=== PATIENT | female | born 1945 | race Caucasian/White ===

== ENCOUNTER 2016-06-17 21:57 | Inpatient (IN) | payer OTHER, MEDICARE ==
[~2016-06-17] VITALS: Ht 162.6 cm; Wt 90.3 kg
[2016-06-17 22:03] VITALS: BP 161/68; PULSE 108; RESP 20; O2SAT 88
[2016-06-17] MEDS ORDERED: PIPERACIL-TAZO 4.5 GM PREMIX 100 ML IV STA (22:09)
[2016-06-17] MEDS ORDERED: AZITHROMYCIN INJ 500 MG in SODIUM CHLOR 0.9% 250 ML INJ 250 ML IV STA (22:09)
[2016-06-17] MEDS ORDERED: VANCOMYCIN INJ 1 MG in SODIUM CHLOR 0.9% 250 ML INJ 250 ML IV STA (22:09)
[2016-06-17] MEDS ORDERED: SODIUM CHLOR 0.9% 1000 ML INJ 1,000 ML IV ONE (22:09)
[2016-06-17] MEDS ORDERED: ACETAMINOPHEN 650 MG SUPP RECTAL ONE (22:15)
[2016-06-17 22:54] LABS: AUTOMATED NEUTROPHIL # 18.4 TH/MM3 (1.8-7.7); BASOPHIL % 0.2 % (0.0-2.0); HEMATOCRIT 30.8 % (35.0-46.0); HEMO FLAGS DIFF FINAL; LYMPH % 5.1 % (9.0-44.0); LYMPHOCYTE # 1.1 TH/MM3 (1.0-4.8); MEAN CELL VOLUME 89.8 FL (80.0-100.0); MEAN CORPUSCULAR HEMOGLOBIN 30.1 PG (27.0-34.0); MEAN CORPUSCULAR HGB CONC 33.5 % (32.0-36.0); MONO % 5.1 % (0.0-8.0); NEUT % 89.6 % (16.0-70.0); PLATELET COUNT 208 TH/MM3 (150-450); RED BLOOD COUNT 3.43 MIL/MM3 (4.00-5.30); RED CELL DISTRIBUTION WIDTH 14.7 % (11.6-17.2); WHITE BLOOD COUNT 20.6 TH/MM3 (4.0-11.0)
--- NOTE | 2016-06-17 23:00 | RADRPT ---
EXAM DATE/TIME: 06/17/2016 22:22 [facility] COMPARISON: No previous studies available for comparison. INDICATIONS : Fever. Shortness of breath. MEDICAL HISTORY : None. SURGICAL HISTORY : None. ENCOUNTER: Initial ACUITY: 1 day PAIN SCORE: Non-responsive. LOCATION: Bilateral chest FINDINGS: Single portable frontal view the chest shows a right lower lobe infiltrate. Left lung is largely melania r. No effusions. Heart is normal in size. Bony structures are unremarkable. CONCLUSION: Right lower lobe infiltrate. Paras Saleem Jr., MD on June 17, 2016 at 22:57 Board Certified Radiologist. This report was verified electronically.
[2016-06-17 23:07] LABS: BLOOD, URINE LARGE (NEG); GLUCOSE,URINE NEG (NEG); KETONE, URINE NEG (NEG); MUCUS URINE FEW /lpf (OCC); NITRITE,URINE NEG (NEG); SQUAMOUS EPITHELIAL CELL URINE 3 /hpf (0-5); TRANSITIONAL EPI CELLS, URINE 3 /hpf; URINE COLOR YELLOW (YELLW/STRAW)
[2016-06-17 23:08] LABS: COMMENT (UR) CATH-CULTURE IND; CULTURE IF INDICATED CATH CULTURE IND
[2016-06-17 23:09] LABS: ALT (GPT) 94 U/L (10-53); ANION GAP 9 MEQ/L (5-15); AST (GOT) 51 U/L (15-37); BICARBONATE 27.4 MEQ/L (21.0-32.0); BLOOD UREA NITROGEN 46 MG/DL (7-18); CHLORIDE 103 MEQ/L (98-107); GLOMERULAR FILTRATION RATE 50 ML/MIN (>89); MAGNESIUM 2.1 MG/DL (1.5-2.5); POTASSIUM 4.4 MEQ/L (3.5-5.1); SODIUM (NA) 139 MEQ/L (136-145)
[2016-06-17 23:12] LABS: ALKALINE PHOSPHATASE 86 U/L (45-117); CREATINE KINASE 165 U/L (26-192); TOTAL BILIRUBIN ADULT 0.5 MG/DL (0.2-1.0)
[2016-06-17 23:20] VITALS: BP 141/95; PULSE 104; RESP 22; TEMP 101.1; O2SAT 96
[2016-06-17 23:22] LABS: APTT (PATIENT) 27.8 SEC (24.3-30.1); INTERNATIONAL NORMALIZED RATIO 1.2 RATIO
[2016-06-17 23:24] LABS: CKMB LESS THAN 0.5 NG/ML (0.5-3.6)
[2016-06-17] MEDS ORDERED: fentaNYL DRIP 250 ML IV SCH (23:30)
[2016-06-17] MEDS ORDERED: MIDAZOLAM 100 MG/ML INJ 100 ML IV SCH (23:30)
[2016-06-17] MEDS ORDERED: ETOMIDATE 20 MG/10 ML VIAL IV PUSH ONE (23:30)
[2016-06-17] MEDS ORDERED: SUCCINYLCHOLINE CHLORIDE 200 MG/10 ML VIAL IV PUSH ONE (23:30)
--- NOTE | 2016-06-17 23:31 | PD ---
HPI Chief Complaint: Respiratory Distress Time Seen by Provider: 22:09 Travel History International Travel<30 days: No Contact w/Intl Traveler<30days: No Traveled to known affect area: No History of Present Illness HPI Patient is a 70-year-old female brought in from her group home by EMS for respiratory distress. EMS states that patient "aspirated over the weekend." Patient was noticed to be to keep neck by nursing staff yesterday and they called EMS today because she seemed to be getting worse. Patient is altered, is nonverbal, is unable to provide history. Family states patient had a change in her mental status about a month ago and there were never able to figure out why. They state that she does not carry on conversations, but usually is attentive. PFSH Past Medical History Hx Anticoagulant Therapy: No Alzheimer's Disease: Yes Atrial Fibrillation: No Cardiovascular Problems: No COPD: No Dementia: Yes Gastrointestinal Disorders: No Past Surgical History Surgical History: Unable to Obtain Social History Tobacco Use: No Allergies-Medications (Allergen,Severity, Reaction): Coded Allergies: Olanzapine (Verified Allergy, Unknown, UNKNOWN, 06/17/16) Reported Meds & Prescriptions Reported Meds & Active Scripts Active Review of Systems ROS Limitations: Altered Mental Status Physical Exam Narrative GENERAL: Patient's eyes closed, responds to painful stimuli. SKIN: Diaphoretic. HEAD: Atraumatic. Normocephalic. EYES: Will not open her eyes, squeezes them shut when trying to manually open them. ENT: Mucous membranes pink and moist. NECK: Trachea midline. No JVD. CARDIOVASCULAR: Tachycardia. No murmur appreciated. RESPIRATORY: Respiratory distress with accessory muscle use. Right-sided crackles. GASTROINTESTINAL: Abdomen soft, non-tender, nondistended. MUSCULOSKELETAL: No obvious deformities. No clubbing. No cyanosis. No edema. NEUROLOGICAL: Responds to painful stimuli. Arms are contracted. Data Data Last Documented VS Vital Signs Date Time Temp Pulse Resp B/P Pulse Ox O2 Delivery O2 Flow Rate FiO2 06/17/16 23:40 100 100 06/17/16 23:20 101.1 104 22 141/95 Non-Rebreather 15 Orders Complete Blood Count With Diff (06/17/16 22:09) Comprehensive Metabolic Panel (06/17/16 22:09) Prothrombin Time / Inr (Pt) (06/17/16 22:09) Act Partial Throm Time (Ptt) (06/17/16 22:09) Lactic Acid Sepsis Protocol (06/17/16 22:09) Magnesium (Mg) (06/17/16 22:09) Phosphorus (Po4) (06/17/16 22:09) Lipase (06/17/16 22:09) Ckmb (Isoenzyme) Profile (06/17/16 22:09) Troponin I (06/17/16 22:) Urinalysis - C+S If Indicated (06/17/16 22:) Ua Includes Microscopic (06/17/16 22:09) Blood Culture (06/17/16 22:09) Chest, Single Ap (06/17/16 22:09) Blood Glucose (06/17/16 22:09) Ecg Monitoring (06/17/16:) Iv Access Insert/Monitor (06/17/16 22:) Oximetry (06/17/16 22:09) Oxygen Administration (06/17/16 22:) Urinary Catheter Insert/Apply (06/17/16 22:) Acetaminophen Supp (Tylenol Supp) (06/17/16 22:15) Ct Brain W/O Iv Contrast(Rout) (06/17/16 22:09) Sodium Chlor 0.9% 1000 Ml Inj (Ns 1000 M (06/17/16 22:09) Vancomycin Inj (Vancomycin Inj) (06/17/16 22:09) Piperacil-Tazo 4.5 Gm Premix (Zosyn 4.5 (06/17/16 22:09) Azithromycin Inj (Zithromax Inj) (06/17/16 22:09) Urine Culture (06/17/16 22:20) CKMB (06/17/16 22:20) CKMB% (06/17/16 22:20) Midazolam Inj (Versed Inj) (06/17/16 23:30) Neurological Rass Scale Q30MX2,Q2HX4,Q4H (06/17/16 23:27) Neurological Rass Scale Q30MX2,Q2HX4,Q4H (06/17/16 23:27) Fentanyl Drip (Fentanyl Drip) (06/17/16 23:30) Chest, Single Ap (06/17/16 ) Prerna-Gastric Tube Insert/Mon (06/17/16 23:27) Etomidate Inj (Amidate Inj) (06/17/16 23:30) Succinylcholine Inj (Quelicin Inj) (06/17/16 23:30) Admit Order (Ed Use Only) (06/17/16 ) Labs Laboratory Tests Test 06/17/16 22:20 White Blood Count 20.6 TH/MM3 Red Blood Count 3.43 MIL/MM3 Hemoglobin 10.3 GM/DL Hematocrit 30.8 % Mean Corpuscular Volume 89.8 FL Mean Corpuscular Hemoglobin 30.1 PG Mean Corpuscular Hemoglobin 33.5 % Concent Red Cell Distribution Width 14.7 % Platelet Count 208 TH/MM3 Mean Platelet Volume 10.1 FL Neutrophils (%) (Auto) 89.6 % Lymphocytes (%) (Auto) 5.1 % Monocytes (%) (Auto) 5.1 % Eosinophils (%) (Auto) 0.0 % Basophils (%) (Auto) 0.2 % Neutrophils # (Auto) 18.4 TH/MM3 Lymphocytes # (Auto) 1.1 TH/MM3 Monocytes # (Auto) 1.0 TH/MM3 Eosinophils # (Auto) 0.0 TH/MM3 Basophils # (Auto) 0.0 TH/MM3 CBC Comment DIFF FINAL Differential Comment Prothrombin Time 13.0 SEC Prothromb Time International 1.2 RATIO Ratio Activated Partial 27.8 SEC Thromboplast Time Urine Color YELLOW Urine Turbidity HAZY Urine pH 5.0 Urine Specific [place] 1.018 Urine Protein TRACE mg/dL Urine Glucose (UA) NEG mg/dL Urine Ketones NEG mg/dL Urine Occult Blood LARGE Urine Nitrite NEG Urine Bilirubin NEG Urine Urobilinogen LESS THAN 2.0 MG/DL Urine Leukocyte Esterase LARGE Urine RBC 20 /hpf Urine WBC 57 /hpf Urine WBC Clumps FEW Urine Squamous Epithelial 3 /hpf Cells Urine Transitional Epithelial 3 /hpf Cells Urine Amorphous Sediment RARE Urine Mucus FEW /lpf Urine Yeast (Budding) MOD Microscopic Urinalysis Comment CATH-CULTURE IND Sodium Level 139 MEQ/L Potassium Level 4.4 MEQ/L Chloride Level 103 MEQ/L Carbon Dioxide Level 27.4 MEQ/L Anion Gap 9 MEQ/L Blood Urea Nitrogen 46 MG/DL Creatinine 1.09 MG/DL Estimat Glomerular Filtration 50 ML/MIN Rate Random Glucose 142 MG/DL Lactic Acid Level 1.8 mmol/L Calcium Level 9.1 MG/DL Phosphorus Level 3.3 MG/DL Magnesium Level 2.1 MG/DL Total Bilirubin 0.5 MG/DL Aspartate Amino Transf 51 U/L (AST/SGOT) Alanine Aminotransferase 94 U/L (ALT/SGPT) Alkaline Phosphatase 86 U/L Total Creatine Kinase 165 U/L Creatine Kinase MB LESS THAN 0.5 NG/ML Troponin I LESS THAN 0.02 NG/ML Total Protein 6.9 GM/DL Albumin 2.7 GM/DL Lipase 70 U/L MDM Medical Decision Making Medical Screen Exam Complete: Yes Emergency Medical Condition: Yes Interpretation(s) ECG shows sinus tachycardia, no ST elevation or depression Differential Diagnosis Sepsis versus pneumonia versus ACS versus CVA Narrative Course Patient is a 70-year-old female brought in by EMS for respiratory distress. Patient is altered cannot provide any history. IV established, labs sent. Decision made to intubate due to inability to protect her airway and continued respiratory distress. Patient intubated without issue. Given IV fluids, started on broad-spectrum antibiotics. Chest x-ray shows large right-sided infiltrate. Patient admitted to ICU for further management. CT head performed shows no acute abnormalities. Critical Care Narrative Aggregate critical care time was 35 minutes. Time to perform other separately billable procedures was not included in the critical care time. My time did not include minutes spent treating any other patients simultaneously or on activities that did not directly contribute to the patient's treatment. The services I provided to this patient were to treat and/or prevent clinically significant deterioration that could result in: Serious illness or I provided critical care services requiring my management, as noted below: Chart data review, documentation time, medication orders and management, vital sign assessments/reviewing monitor data, ordering and reviewing lab tests, ordering and interpreting/reviewing x-rays and diagnostic studies, care of the patient and discussion of the patient with the admitting physicians. Procedures Procedure Narrative After the risks and benefits were discussed the following procedure was performed: INTUBATION: The patient was put in optimal position for the procedure. Rapid sequence intubation was initiated by me using 20 milligrams of etomidate IV and [100 milligrams of succinylcholine IV. The patient was intubated with a 7.5 cuffed endotracheal tube. Tube placement was confirmed by visualization of the tube and balloon passing through the cords, capnometry and subsequent chest x-ray. Breath sounds were equal and well aerated bilaterally postintubation. No breath sounds over stomach. Patient tolerated procedure well. Diagnosis Primary Impression: Sepsis Qualified Code: A41.9 - Sepsis, due to unspecified organism Additional Impressions: Pneumonia Qualified Code: J18.1 - Pneumonia of right lower lobe due to infectious organism Respiratory failure Qualified Code: J96.00 - Acute respiratory failure, unspecified whether with hypoxia or hypercapnia Admitting Information Admitting Physician Requests: Admit Makayla Dutta MD Jun 17, 2016 23:31
[2016-06-17 23:40] VITALS: O2SAT 100
[2016-06-18] VITALS (21 sets, daily range): BP systolic 90–203; BP diastolic 51–92; PULSE 59–94; RESP 13–18; TEMP 99.3–101.1; O2SAT 94–100
[2016-06-18] MEDS ORDERED: METOCLOPRAMIDE HCL 10 MG/2 ML VIAL IV PRN
[2016-06-18] MEDS ORDERED: LORazepam 2 MG/ML VIAL IV PRN
[2016-06-18] MEDS ORDERED: ONDANSETRON HCL 4 MG/2 ML VIAL IV PRN
[2016-06-18] MEDS ORDERED: Vancomycin Consult Pharmacy 1 EA OTHER SCH
[2016-06-18] MEDS ORDERED: MORPHINE SULFATE 4 MG/ML INJ IV PRN
[2016-06-18] MEDS ORDERED: ACETAMINOPHEN 325 MG TAB PO PRN
[2016-06-18] MEDS ORDERED: SODIUM CHLORIDE 0.9% FLUSH 10 ML FLUSH PRN
[2016-06-18] MEDS ORDERED: MISCELLANEOUS NURSING INFORMATION XX SCH
[2016-06-18] MEDS ORDERED: DOCUSATE SODIUM 100 MG/10 ML UDC G-TUBE SCH
[2016-06-18] MEDS ORDERED: CHLORHEXIDINE GLUCONATE 2 % 1 PACK (2 CLOTHS) TOP PRN
--- NOTE | 2016-06-18 00:11 | RADRPT ---
EXAM DATE/TIME: 06/17/2016 23:37 [facility] COMPARISON: CHEST SINGLE AP, June 17, 2016, 22:22. INDICATIONS : Post endotracheal tube placement. MEDICAL HISTORY : Non-responsive SURGICAL HISTORY : Non-responsive ENCOUNTER: Subsequent ACUITY: 1 day PAIN SCORE: Non-responsive. LOCATION: Bilateral chest FINDINGS: A single portable frontal view of the chest shows the tip of the endotracheal tube into the right taylor nstem bronchus. Nasogastric tube noted. No parenchymal consolidation is seen within the right lung ba se. This is less pronounced than the earlier study. Left lung is clear. Aorta is calcified. Heart is mildly enlarged. Degenerative spine. CONCLUSION: Tip of the endotracheal tube into the right mainstem bronchus. Suggest retracting it approximately 3 cm. Right lower lobe infiltrate is less pronounced. Paras Saleem Jr., MD on June 18, 2016 at 0:09 Board Certified Radiologist. This report was verified electronically.
[2016-06-18 00:20] LABS: BLOOD GAS BASE EXCESS 0.5 mmol/L (-2-2); BLOOD GAS CARBOXYHEMOGLOBIN 0.7 % (0-4); BLOOD GAS HCO3 25 mmol/L (22-26); BLOOD GAS METHEMOGLOBIN 0.1 % (0-2); BLOOD GAS O2 HGB SATURATION 99 % (90-100); BLOOD GAS OXYGEN CONTENT 14.4 Vol % (12.0-20.0); BLOOD GAS PCO2 39 mmHg (38-42); BLOOD GAS PO2 299 mmHG (61-120); BLOOD GAS TOTAL HGB 9.8 G/DL (12.0-16.0); TEMP CORR TO 98.6
[2016-06-18 00:21] LABS: CRITICAL VALUE NO; DRAW SITE LT RADIAL; FIO2 100 %; NUMBER OF ARTERIAL PUNCTURES 1; OXYGEN DEVICE VENTILATOR; STAT NO; ULNAR PULSE PRESENT; VENT SETTINGS 600 14 5 PEEP
[2016-06-18] MEDS ORDERED: VANCOMYCIN 1,000 MG/NS 250 ML IV SCH ×2 (01:00)
[2016-06-18] MEDS: CEFEPIME INJ 2,000 MG in SODIUM CHLORIDE 0.9% INJ 100 ML IV SCH ×3 (02:06→21:18)
[2016-06-18] MEDS: ENOXAPARIN SODIUM 40 MG/0.4 ML SYRINGE SQ SCH ×2 (02:06→23:12)
[2016-06-18] MEDS: methylPREDNISolone SOD SUCC 40 MG/1 ML VIAL IV SCH ×3 (02:06→23:12)
[2016-06-18] MEDS ORDERED: COLA100C3 PO (02:38)
[2016-06-18] MEDS ORDERED: LEVA500T PO (02:38)
[2016-06-18] MEDS ORDERED: LORA-474 PO (02:38)
[2016-06-18] MEDS ORDERED: CLOP75TA PO (02:38)
[2016-06-18] MEDS ORDERED: ALBU0.08 NEB (02:38)
[2016-06-18] MEDS ORDERED: TRAM50TA PO (02:38)
[2016-06-18] MEDS ORDERED: LISI40TA PO (02:38)
[2016-06-18] MEDS ORDERED: MULT1TAB84 PO (02:38)
[2016-06-18] MEDS ORDERED: AMLO10TA2 PO (02:38)
[2016-06-18] MEDS ORDERED: DULC10SU3 RECTAL (02:38)
[2016-06-18] MEDS: DOCUSATE SODIUM 100 MG CAP G-TUBE SCH ×2 (03:00→15:25)
[2016-06-18] MEDS: CHLORHEXIDINE GLUCONATE 2 % 1 PACK (2 CLOTHS) TOP SCH (04:00)
--- NOTE | 2016-06-18 04:29 | RADRPT ---
EXAM DATE/TIME: 06/18/2016 03:48 [facility] COMPARISON: No previous studies available for comparison. INDICATIONS : Altered mental status/ respiratory distress. RADIATION DOSE: 43.51 CTDIvol (mGy) MEDICAL HISTORY : Non-responsive. SURGICAL HISTORY : Non-responsive. ENCOUNTER: Initial ACUITY: 1 day PAIN SCALE: Non-responsive LOCATION: cranial TECHNIQUE: Multiple contiguous axial images were obtained of the head. Using automated exposure control and adj ustment of the mA and/or kV according to patient size, radiation dose was kept as low as reasonably a chievable to obtain optimal diagnostic quality images. FINDINGS: CEREBRUM: Atrophy. The ventricles are normal for age. No evidence of midline shift, mass lesion, hemorrhage or acute infarction. No extra-axial fluid collections are seen. POSTERIOR FOSSA: The cerebellum and brainstem are intact. The 4th ventricle is midline. The cerebellopontine angle i s unremarkable. EXTRACRANIAL: The visualized portion of the orbits is intact. SKULL: The calvaria is intact. No evidence of skull fracture. CONCLUSION: No acute disease. Paras Saleem Jr., MD on June 18, 2016 at 4:26 Board Certified Radiologist. This report was verified electronically.
--- NOTE | 2016-06-18 05:09 | HHI.HP ---
HPI Service Critical Care Medicine Primary Care Physician Michlee Ho M.D. Admission Diagnosis Pneumonia, sepsis Diagnosis: Travel History International Travel<30 Days: No Contact w/Intl Traveler <30 Da: No Traveled to Known Affected Are: No History of Present Illness 70-year-old unfortunate female residential resident due to lack of capacity to live independently due to progressively worsening dementia. Patient was progressively getting more lethargic within last few days. She was also noted to be febrile. Per daughter patient baseline is between" sometimes she talks but doesn't make any sense" but sometimes just mumbles. She has also had some decreased by mouth intake. Today she was found more lethargic almost unresponsive and was transferred to emergency department. In the ED she was found not to be able to protect her airways and was intubated by ER attending. Review of Systems ROS Unable to obtain patient is sedated and intubated Past Family Social History Allergies: Coded Allergies: Olanzapine (Verified Allergy, Unknown, UNKNOWN, 06/17/16) Past Medical History Hypertension Coronary artery disease Dementia Alzheimer type for last 10 years Past Surgical History Unable to obtain Reported Medications Reported Meds & Active Scripts Active Reported Dulcolax Supp (Bisacodyl) 10 Mg Supp 10 Mg RECTAL DAILY PRN Ativan (Lorazepam) 1 Mg Tab 1 Mg PO Q8H PRN Tramadol (Tramadol HCl) 50 Mg Tab 100 Mg PO Q6H PRN Tramadol (Tramadol HCl) 50 Mg Tab 50 Mg PO Q6H PRN Albuterol Neb (Albuterol Sulfate) 2.5 Mg/3 Ml Neb 2.5 Mg NEB QID NEB Multivitamin Adults (Multiple Vitamins W/ Minerals) 1 Tab 1 Tab PO DAILY Lisinopril 40 Mg Tab 40 Mg PO DAILY Levaquin (Levofloxacin) 500 Mg Tab 500 Mg PO DAILY Colace (Docusate Sodium) 100 Mg Cap 100 Mg PO DAILY Clopidogrel (Clopidogrel Bisulfate) 75 Mg Tab 75 Mg PO DAILY Amlodipine (Amlodipine Besylate) 10 Mg Tab 10 Mg PO DAILY Active Ordered Medications Current Medications Medications (Trade) Dose Ordered Sig/Louise Route PRN Reason Start Time Stop Time Status Last Admin Dose Admin Midazolam HCl 100 ml @ 0 mls/hr TITRATE IV 06/17/16 23:30 06/18/16 00:14 Fentanyl Citrate (fentaNYL DRIP) 250 ml @ 0 mls/hr TITRATE IV 06/17/16 23:30 06/18/16 00:13 Sodium Chloride (NS Flush) 2 ml UNSCH PRN .XX FLUSH AFTER USING IV ACCESS 06/18/16 00:00 Sodium Chloride (NS Flush) 2 ml BID .XX 06/18/16 09:00 Acetaminophen (Tylenol) 650 mg Q6H PRN PO PAIN 1-10 AND/OR FEVER >101F 06/18/16 00:00 Morphine Sulfate (Morphine Inj) 2 mg Q2H PRN IV PAIN SCALE 6 TO 10 06/18/16 00:00 Famotidine (Pepcid Inj) 20 mg Q12HR IV PUSH 06/18/16 09:00 Lorazepam (Ativan Inj) 2 mg Q4H PRN IV Agitation/Sedation 06/18/16 00:00 Artificial Tears (Tears Naturale Opth Soln) 1 drop TID EACH EYE 06/18/16 09:00 Ondansetron HCl (Zofran Inj) 4 mg Q6H PRN IV NAUSEA OR VOMITING 06/18/16 00:00 Metoclopramide HCl (Reglan Inj) 10 mg Q6H PRN IV NAUSEA OR VOMITING 06/18/16 00:00 Enoxaparin Sodium (Lovenox Inj) 40 mg Q24H SQ 06/18/16 00:00 06/18/16 02:06 Miscellaneous Information 1 Q361D XX 06/18/16 00:00 Chlorhexidine Gluconate (Chlorhexidine 2% Cloth) 3 pack Taper DAILY@04 TOP 06/18/16 04:00 06/14/17 03:59 06/18/16 04:00 Chlorhexidine Gluconate 3 pack 3 pack UNSCH PRN TOP HYGIENIC CARE 06/18/16 00:00 Propofol 100 ml @ 0 mls/hr TITRATE IV 06/18/16 00:00 Cefepime HCl 2000 mg/Sodium Chloride 100 ml @ 200 mls/hr Q8H IV 06/18/16 00:00 06/18/16 02:06 Azithromycin 500 mg/Sodium Chloride 250 ml @ 250 mls/hr Q24H IV 06/18/16 23:00 Pharmacy Profile Note (Vancomycin Consult Pharmacy) 0 ml @ 0 mls/hr UNSCH OTHER 06/18/16 00:00 Methylprednisolone Sodium Succinate (SoluMEDROL INJ) 40 mg Q12H IV 06/18/16 00:00 06/18/16 02:06 Protein (Beneprotein Powder) 2 pack TID G-TUBE 06/18/16 09:00 Docusate Sodium (Colace) 100 mg Q12H G-TUBE 06/18/16 03:00 Family History Noncontributory Social History Negative 3 Physical Exam Vital Signs Vital Signs Date Time Temp Pulse Resp B/P Pulse Ox O2 Delivery O2 Flow Rate FiO2 06/18/16 04:21 100.8 75 14 119/55 97 06/18/16 03:00 73 18 131/57 100 Ventilator 50 06/18/16 02:00 75 18 135/65 100 Ventilator 50 06/18/16 01:00 101.1 78 18 97/56 100 Ventilator 50 06/18/16 00:30 82 18 102/56 100 Ventilator 06/18/16 00:00 101.1 94 18 203/92 100 Ventilator 100 06/17/16 23:40 100 100 06/17/16 23:20 101.1 104 22 141/95 96 Non-Rebreather 15 06/17/16 23:00 92 Non-Rebreather 15 06/17/16 22:30 108 22 92 Nasal Cannula 4 06/17/16 22:03 108 20 161/68 88 Physical Exam GENERAL: Well-nourished, well-developed patient. Sedated and intubated SKIN: Warm and dry. HEAD: Normocephalic. EYES: No scleral icterus. No injection or drainage. NECK: Supple, trachea midline. No JVD or lymphadenopathy. CARDIOVASCULAR: Regular rate and rhythm without murmurs, gallops, or rubs. RESPIRATORY: Breath sounds equal bilaterally. No accessory muscle use. GASTROINTESTINAL: Abdomen soft, non-tender, nondistended. MUSCULOSKELETAL: No cyanosis, or edema. BACK: Nontender without obvious deformity. No CVA tenderness. EXTREMITIES: No clubbing cyanosis or edema Laboratory Laboratory Tests Test 06/17/16 06/18/16 06/18/16 22:20 00:07 01:55 White Blood Count 20.6 Red Blood Count 3.43 Hemoglobin 10.3 Hematocrit 30.8 Mean Corpuscular Volume 89.8 Mean Corpuscular Hemoglobin 30.1 Mean Corpuscular Hemoglobin 33.5 Concent Red Cell Distribution Width 14.7 Platelet Count 208 Mean Platelet Volume 10.1 Neutrophils (%) (Auto) 89.6 Lymphocytes (%) (Auto) 5.1 Monocytes (%) (Auto) 5.1 Eosinophils (%) (Auto) 0.0 Basophils (%) (Auto) 0.2 Neutrophils # (Auto) 18.4 Lymphocytes # (Auto) 1.1 Monocytes # (Auto) 1.0 Eosinophils # (Auto) 0.0 Basophils # (Auto) 0.0 CBC Comment DIFF FINAL Differential Comment Prothrombin Time 13.0 Prothromb Time International 1.2 Ratio Activated Partial 27.8 Thromboplast Time Urine Color YELLOW Urine Turbidity HAZY Urine pH 5.0 Urine Specific [place] 1.018 Urine Protein TRACE Urine Glucose (UA) NEG Urine Ketones NEG Urine Occult Blood LARGE Urine Nitrite NEG Urine Bilirubin NEG Urine Urobilinogen LESS THAN 2.0 Urine Leukocyte Esterase LARGE Urine RBC 20 Urine WBC 57 Urine WBC Clumps FEW Urine Squamous Epithelial 3 Cells Urine Transitional Epithelial 3 Cells Urine Amorphous Sediment RARE Urine Mucus FEW Urine Yeast (Budding) MOD Microscopic Urinalysis Comment CATH-CULTURE IND Sodium Level 139 Potassium Level 4.4 Chloride Level 103 Carbon Dioxide Level 27.4 Anion Gap 9 Blood Urea Nitrogen 46 Creatinine 1.09 Estimat Glomerular Filtration 50 Rate Random Glucose 142 Lactic Acid Level 1.8 Calcium Level 9.1 Phosphorus Level 3.3 Magnesium Level 2.1 Total Bilirubin 0.5 Aspartate Amino Transf 51 (AST/SGOT) Alanine Aminotransferase 94 (ALT/SGPT) Alkaline Phosphatase 86 Total Creatine Kinase 165 Creatine Kinase MB LESS THAN 0.5 Troponin I LESS THAN 0.02 Total Protein 6.9 Albumin 2.7 Lipase 70 Blood Gas Puncture Site LT RADIAL Blood Gas Patient Temperature 98.6 Blood Gas HCO3 25 Blood Gas Base Excess 0.5 Blood Gas Oxygen Saturation 99 Arterial Blood pH 7.42 Arterial Blood Partial 39 Pressure CO2 Arterial Blood Partial 299 Pressure O2 Arterial Blood Oxygen Content 14.4 Arterial Blood 0.7 Carboxyhemoglobin Arterial Blood Methemoglobin 0.1 Blood Gas Hemoglobin 9.8 Oxygen Delivery Device VENTILATOR Blood Gas Ventilator Setting 600 14 5 PEEP Blood Gas Inspired Oxygen 100 Ammonia 31 Date/Time Procedure Status Source Growth 06/17/16 22:25 Aerobic Blood Culture Received Blood Peripheral Pending 06/17/16 22:25 Anaerobic Blood Culture Received Blood Peripheral Pending 06/17/16 22:20 Urine Culture Received Urine Catheterized Urine Pending Result Diagram: 06/17/16221906/17/162219 Imaging Last [address] 06/17/162208 Signed Impressions: Service Date/Time: Saturday, June 18, 2016 03:48 - CONCLUSION: No acute disease. Paras Saleem Jr., MD Chest X-Ray 06/17/162208 Signed Impressions: Service Date/Time: Friday, June 17, 2016 22:22 - CONCLUSION: Right lower lobe infiltrate. Paras Saleem Jr., MD Assessment and Plan Assessment and Plan Respiratory failure - Intubated for an airway protection - Bilateral infiltrates and consolidation some CAT scan - Hospital-acquired pneumonia - Broad-spectrum antibiotic - Follow-up on cultures Altered mental status - History of waxing and weaning mental status - History of dementia - MRI of the brain - EEG - Consider LP febrile Hypertension - Resume home medications lisinopril and Norvasc if blood pressure allows DVT GI prophylaxis - Lovenox and Pepcid Critical Care: The total critical care time was 35 minutes. Time to perform other separately billable procedures was not included in the critical care time. Josue Kinsey MD Jun 18, 2016 05:09
[2016-06-18] MEDS ORDERED: BISACODYL 10 MG SUPP RECTAL PRN (05:15)
[2016-06-18] MEDS ORDERED: LORazepam 1 MG TAB PO PRN (05:15)
[2016-06-18 05:38] LABS: AUTOMATED NEUTROPHIL # 15.7 TH/MM3 (1.8-7.7); BASOPHIL # 0.1 TH/MM3 (0-0.2); BASOPHIL % 0.3 % (0.0-2.0); HEMATOCRIT 30.1 % (35.0-46.0); LYMPH % 3.2 % (9.0-44.0); LYMPHOCYTE # 0.5 TH/MM3 (1.0-4.8); MEAN CELL VOLUME 91.6 FL (80.0-100.0); MEAN CORPUSCULAR HGB CONC 31.6 % (32.0-36.0); MONO % 3.7 % (0.0-8.0); NEUT % 92.8 % (16.0-70.0); PLATELET COUNT 155 TH/MM3 (150-450); RED BLOOD COUNT 3.29 MIL/MM3 (4.00-5.30); RED CELL DISTRIBUTION WIDTH 14.7 % (11.6-17.2); WHITE BLOOD COUNT 16.9 TH/MM3 (4.0-11.0)
[2016-06-18 05:46] LABS: HEMO FLAGS AUTO DIFF
[2016-06-18 05:58] LABS: ALT (GPT) 87 U/L (10-53); ANION GAP 8 MEQ/L (5-15); AST (GOT) 49 U/L (15-37); BICARBONATE 25.9 MEQ/L (21.0-32.0); BLOOD UREA NITROGEN 46 MG/DL (7-18); CHLORIDE 108 MEQ/L (98-107); GLOMERULAR FILTRATION RATE 55 ML/MIN (>89); POTASSIUM 3.9 MEQ/L (3.5-5.1); SODIUM (NA) 142 MEQ/L (136-145)
[2016-06-18 06:02] LABS: ALKALINE PHOSPHATASE 75 U/L (45-117); TOTAL BILIRUBIN ADULT 0.7 MG/DL (0.2-1.0)
--- NOTE | 2016-06-18 06:18 | RADRPT ---
EXAM DATE/TIME: 06/18/2016 05:42 [facility] COMPARISON: CHEST SINGLE AP, June 17, 2016, 23:37. INDICATIONS : Shortness of breath. MEDICAL HISTORY : None. SURGICAL HISTORY : None. ENCOUNTER: Initial ACUITY: 1 day PAIN SCORE: Non-responsive. LOCATION: Bilateral chest FINDINGS: A single portable frontal view the chest shows repositioning of the endotracheal tube. Tip is 3 cm ce phalad to the maryam. Nasogastric tube noted within the stomach. New basilar consolidations bilateral ly. Some more pronounced on the right. Heart is normal in size. CONCLUSION: Repositioning of the endotracheal tube. New basilar consolidations. Paras Saleem Jr., MD on June 18, 2016 at 6:16 Board Certified Radiologist. This report was verified electronically.
[2016-06-18 07:05] LABS: BANDS 13 % (0-6); NEUTROPHIL # MANUAL DIFF 16.1 TH/MM3 (1.8-7.7); POLYS (SEG NEUTROPHILS) 82 % (16-70); WBC DIFF SAMPLE 100
[2016-06-18 07:07] LABS: PLATELET ESTIMATE SMEAR NORMAL (NORMAL); PLATELET MORPHOLOGY NORMAL (NORMAL); SCAN/DIFF FINAL DIFF MANUAL
[2016-06-18] MEDS: RESP: ALBUTEROL 2.5 MG/IPRATROPIUM 0.5 MG NEB (PRN) INH (07:27)
[2016-06-18] MEDS: LISINOPRIL 20 MG TAB PO SCH ×2 (08:14→08:31)
[2016-06-18] MEDS: MULTIVITAMINS/MINERALS THERAPEUTIC TAB PO SCH (08:14)
[2016-06-18] MEDS: FAMOTIDINE 20 MG/2 ML VIAL IV PUSH SCH ×2 (08:15→21:19)
[2016-06-18] MEDS: SODIUM CHLORIDE 0.9% FLUSH 10 ML FLUSH SCH ×2 (08:15→21:00)
[2016-06-18] MEDS: BENEPROTEIN POWDER 1 PACK G-TUBE SCH ×3 (08:29→19:55)
[2016-06-18] MEDS ORDERED: CLOPIDOGREL 75 MG TAB PO SCH (09:00)
--- NOTE | 2016-06-18 09:16 | EKG ---
Date Performed: 06/17/2016 Time Performed: 22:11:19 PTAGE: 70 years EKG: SINUS TACHYCARDIA ABNORMAL RHYTHM ECG NO PREVIOUS TRACING DOCTOR: Albino Lambert Interpretating Date/Time 06/18/2016 09:13:58
[2016-06-18] MEDS: ARTIFICIAL TEARS OPTH SOLN 15 ML BTL EACH EYE SCH ×3 (09:39→19:55)
[2016-06-18] MEDS: VANCOMYCIN INJ 1,750 MG in SODIUM CHLORID 0.9% 500 ML INJ 500 ML IV SCH (11:05)
[2016-06-18] MEDS: RESP: ALBUTEROL 2.5 MG/3 ML NEB (SCH) NEB ×3 (11:13→19:12)
[2016-06-18] MEDS: FLUCONAZOLE 200 MG PREMIX BAG 100 ML IV SCH (15:25)
[2016-06-18] MEDS ORDERED: GADODIAMIDE PF 287 MG/ML 20 ML VIAL (for RAD MRI) IV ONE (17:48)
--- NOTE | 2016-06-18 18:35 | RADRPT ---
EXAM DATE/TIME: 06/18/2016 16:34 [facility] COMPARISON: No previous studies available for comparison. INDICATIONS : Altered mental status. CONTRAST: 18 cc Omniscan (gadodiamide) IV MEDICAL HISTORY : Hypertension. SURGICAL HISTORY : Appendectomy. ENCOUNTER: Subsequent ACUITY: 2 day PAIN SCORE: Nonresponsive. LOCATION: head. TECHNIQUE: Multiplanar, multisequence MRI of the brain was performed both prior to and following the administrat ion of paramagnetic contrast. FINDINGS: CEREBRUM: The ventricles are normal for age. No evidence of midline shift, mass lesion, hemorrhage or acute in farction. No extraaxial fluid collections are seen. The pituitary gland and suprasellar cistern are normal in configuration. WHITE MATTER: No significant signal abnormalities are seen in the white matter. POSTERIOR FOSSA: The cerebellum and brainstem are intact. The 4th ventricle is midline. The cerebellopontine angle is unremarkable. The cerebellar tonsils are normal in position. DIFFUSION IMAGING: No focal areas of restricted diffusion are seen. No evidence of acute infarction. EXTRACRANIAL: The visualized portions of the orbits and paranasal sinuses are unremarkable. POST-CONTRAST: No abnormal areas of parenchymal or dural enhancement. No evidence of blood-brain barrier breakdown. CONCLUSION: 1. No acute findings. Examination is within normal limits for age. No recent infarct, mass or abnorma l enhancement postcontrast. Esteban Jeff MD on June 18, 2016 at 18:31 Board Certified Radiologist. This report was verified electronically.
[2016-06-18] MEDS: AZITHROMYCIN INJ 500 MG in SODIUM CHLOR 0.9% 250 ML INJ 250 ML IV SCH (21:19)
[2016-06-18] MEDS: PROPOFOL 1000 MG/100 ML INJ 100 ML IV SCH (21:24)
[2016-06-18 22:06] LABS: ALKALINE PHOSPHATASE 77 U/L (45-117); ALT (GPT) 99 U/L (10-53); ANION GAP 8 MEQ/L (5-15); AST (GOT) 64 U/L (15-37); BICARBONATE 25.9 MEQ/L (21.0-32.0); BLOOD UREA NITROGEN 59 MG/DL (7-18); CHLORIDE 109 MEQ/L (98-107); GLOMERULAR FILTRATION RATE 66 ML/MIN (>89); POTASSIUM 3.9 MEQ/L (3.5-5.1); SODIUM (NA) 143 MEQ/L (136-145); TOTAL BILIRUBIN ADULT 0.3 MG/DL (0.2-1.0)
[2016-06-19] VITALS (20 sets, daily range): BP systolic 117–147; BP diastolic 56–68; PULSE 57–94; RESP 22–28; TEMP 98.8–100.2; O2SAT 95–100
[2016-06-19] MEDS: DOCUSATE SODIUM 100 MG CAP G-TUBE SCH ×2 (01:16→14:54)
[2016-06-19] MEDS: PROPOFOL 1000 MG/100 ML INJ 100 ML IV SCH ×5 (01:17→22:44)
[2016-06-19] MEDS: CHLORHEXIDINE GLUCONATE 2 % 1 PACK (2 CLOTHS) TOP SCH (04:00)
[2016-06-19 05:35] LABS: AUTOMATED NEUTROPHIL # 12.4 TH/MM3 (1.8-7.7); BASOPHIL % 0.1 % (0.0-2.0); HEMATOCRIT 31.7 % (35.0-46.0); HEMO FLAGS DIFF FINAL; LYMPH % 5.3 % (9.0-44.0); LYMPHOCYTE # 0.7 TH/MM3 (1.0-4.8); MEAN CELL VOLUME 91.2 FL (80.0-100.0); MEAN CORPUSCULAR HGB CONC 31.9 % (32.0-36.0); MONO % 4.3 % (0.0-8.0); NEUT % 90.3 % (16.0-70.0); PLATELET COUNT 156 TH/MM3 (150-450); RED BLOOD COUNT 3.48 MIL/MM3 (4.00-5.30); RED CELL DISTRIBUTION WIDTH 14.9 % (11.6-17.2); WHITE BLOOD COUNT 13.7 TH/MM3 (4.0-11.0)
[2016-06-19 06:06] LABS: ALKALINE PHOSPHATASE 99 U/L (45-117); ALT (GPT) 355 U/L (10-53); ANION GAP 10 MEQ/L (5-15); AST (GOT) 380 U/L (15-37); BICARBONATE 23.9 MEQ/L (21.0-32.0); BLOOD UREA NITROGEN 57 MG/DL (7-18); CHLORIDE 112 MEQ/L (98-107); GLOMERULAR FILTRATION RATE 71 ML/MIN (>89); POTASSIUM 4.1 MEQ/L (3.5-5.1); SODIUM (NA) 146 MEQ/L (136-145); TOTAL BILIRUBIN ADULT 0.3 MG/DL (0.2-1.0)
[2016-06-19] MEDS: LISINOPRIL 20 MG TAB PO SCH (08:22)
[2016-06-19] MEDS: MULTIVITAMINS/MINERALS THERAPEUTIC TAB PO SCH (08:22)
[2016-06-19] MEDS: FAMOTIDINE 20 MG/2 ML VIAL IV PUSH SCH ×2 (08:23→20:08)
[2016-06-19] MEDS: SODIUM CHLORIDE 0.9% FLUSH 10 ML FLUSH SCH ×2 (08:23→20:08)
[2016-06-19] MEDS: CEFEPIME INJ 2,000 MG in SODIUM CHLORIDE 0.9% INJ 100 ML IV SCH ×2 (08:23→20:08)
[2016-06-19] MEDS: ARTIFICIAL TEARS OPTH SOLN 15 ML BTL EACH EYE SCH ×3 (08:24→18:29)
[2016-06-19] MEDS: BENEPROTEIN POWDER 1 PACK G-TUBE SCH ×3 (08:24→18:29)
--- NOTE | 2016-06-19 08:31 | HHI.CCPN ---
Subjective Remarks/Hospital Course 06/18: 70-year-old unfortunate female correction resident due to lack of capacity to live independently due to progressively worsening dementia. Patient was progressively getting more lethargic within last few days. She was also noted to be febrile. Per daughter patient baseline is between" sometimes she talks but doesn't make any sense" but sometimes just mumbles. She has also had some decreased by mouth intake. She was found more lethargic almost unresponsive and was transferred to emergency department. In the ED she was found not to be able to protect her airways and was intubated by ER attending. She was admitted to the ICU. 06/19: Patient remains sedated and mechanically ventilated. RASS score of -2. No acute events overnight. Tmax overnight of 100.2F. Review of records from [facility] admission on 05/06/16 patient was admitted due to fevers, rigors, dysuria however urine culture was negative. Blood cultures obtained during that admission were found to be intermittently positive however organisms were all different including staph epi and staph hominis and thought to be contaminants. CXR and head CT were negative. Flu A/B ags were negative. It was noted that the patient had been taking Zyprexa and that medication has been discontinued due to possible neuroleptic-related fever. Patient had also been taking Haldol prn as well as Effexor. Echocardiogram was negative no vegetations. 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 Pt also had elevated LFTs during that admission which trended down and biliary scan was negative. Objective Vital Signs Date Time Temp Pulse Resp B/P Pulse Ox O2 Delivery O2 Flow Rate FiO2 06/19/16 06:00 70 06/19/16 04:27 98 40 06/19/16 04:00 99.8 28 117/58 06/18/16 03:00 Ventilator 06/17/16 23:20 15 Intake and Output 06/18/16 06/18/16 06/19/16 08:00 16:00 00:00 Intake Total 84 ml 167 ml 570 ml Output Total 215 ml 215 ml 350 ml Balance -131 ml -48 ml 220 ml Result Diagram: 06/19/16 0443 06/19/16 0443 Other Results Microbiology Date/Time Procedure Status Source Growth 06/18/16 15:30 Legionella Antigen - Final Complete Urine Catheterized Urine PRESUMPTIVE NEGATIVE FOR LEGIONELLA P... 06/18/16 15:30 Streptococcus pneumoniae Antigen (M - Final Complete Urine Catheterized Urine PRESUMPTIVE NEGATIVE FOR STREPTOCOCCU... Imaging Last [address] 06/17/162208 Signed Impressions: Service Date/Time: Saturday, June 18, 2016 03:48 - CONCLUSION: No acute disease. Paras Saleem Jr., MD Chest X-Ray 06/17/162208 Signed Impressions: Service Date/Time: Friday, June 17, 2016 22:22 - CONCLUSION: Right lower lobe infiltrate. Paras Saleem Jr., MD Objective Remarks GENERAL: Well-nourished, well-developed patient. Sedated and intubated SKIN: Warm and dry. HEAD: Normocephalic. EYES: No scleral icterus. No injection or drainage. NECK: Supple, trachea midline. No JVD or lymphadenopathy. CARDIOVASCULAR: Regular rate and rhythm without murmurs, gallops, or rubs. RESPIRATORY: Breath sounds equal bilaterally. No accessory muscle use. GASTROINTESTINAL: Abdomen soft, non-tender, nondistended. MUSCULOSKELETAL: No cyanosis, or edema. EXTREMITIES: No clubbing cyanosis or edema Urinary Catheter: Yes Assessment to: Continue Kay insert reason: Measure Accurate Output A/P Assessment and Plan NEURO: AMS History of dementia Delirium - On Diprivan infusion for sedation, daily sedation vacation - Consider LP once Plavix has worn off; defer to Neurology; awaiting Neurology evaluation RESP: Respiratory failure, now mechanically ventilated RLL infiltrate - Continue with mechanical ventilation to keep saturations > 92% - ICU vent bundle - Bronchodilators as needed - Daily CPAP trials - Antibiotics as below CV: Hypertension - Continue home medications of Norvasc and Lisinopril if BP tolerates GI: Rising AST/ALT - May be drug-induced, myopathy, congestive hepatopathy - Continue tube feeds with Jevity 1.5 lina at goal of 60 cc/hr - Continue colace for bowel regimen - Discontinue Tylenol - If LFTs rise further, will consider GI evaluation and RUQ US : Stable - Monitor renal function - Kay catheter in place for accurate I/O's HEME: Anemia, stable - Continue to monitor ID: Sepsis Funguria RLL infiltrate Leukocytosis with fevers - ID consulted - Blood cultures negative to date, UCx growing yeast, pneumococcal legionella presumptive negatives - Consider LP following discussion with neurology and ID, if needed - Follow cultures - On vancomycin (06/18 -), cefepime (4 -), azithromycin (06/17 -), diflucan (06/18 - ) ENDO: - Continue accuchecks - Novolin (low dose) SS - TSH ordered PROPH: DVT PPX: TEDs, hold subq Lovenox for possibility of LP GI PPX: Pepcid Addendum: Patient seen and examined earlier. Discussed findings, assessment and plan with Dr. Kendall as outlined above. Agree with above note. Howard Kendall MD R1 Jun 19, 2016 08:31 Kiet Poole MD Jun 19, 2016 13:38
[2016-06-19] MEDS: RESP: ALBUTEROL 2.5 MG/3 ML NEB (SCH) NEB ×4 (08:41→19:15)
--- NOTE | 2016-06-19 11:21 | PD.CONS ---
Consult Service Palliative Care . Consult Requested By Dr. Oscar Poole . Primary Care Physician Michele Ho M.D. . Reason for Consultation a. To assist with evaluation and management of symptoms including: dyspnea, lethargy, weakness. b. To assist medical decision maker(s) with: better understanding of current medical conditions; weighing benefits/burdens of medical treatment options; making medical treatment decisions. . HPI History of Present Illness Mrs. Busby is a 70 year old female with dementia, hypertension and coronary artery disease. She was at [facility] following a hospitalization at [facility] on 05/06/16 for fever, positive blood cultures ( possible contaminants) and possible neuroleptic-related fever due to Zyprexa ( was discontinued). Patient had also been taking Haldol prn as well as Effexor. CXR and head CT were negative. Flu A/B negative. Echocardiogram was negative no vegetations. 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 Elevated LFTs during that admission which trended down and biliary scan was negative. Patient presented to [facility] emergency department via EMS on 06/17/16 from detention when she became more lethargic, almost unresponsive with respiratory distress. She had reportedly "aspirated over the weekend" and was getting worse per EMS. Patient was nonverbal upon arrival. Upon arrival to the ER she was emergently intubated as she was unable to protect her airway. Initial evaluation revealed: * WBC 20.6, hemoglobin 10.3, hematocrit 30.8, platelets 208, neutrophils 89.6% * BUN 46, creatinine 1.09, GFR 50 * Total bili 0.5, AST 51, ALT 94, Alk phos 86 * Total creatine kinase 165, CK-MB less than 0.5, troponin less than 0.02 * Total protein 6.9, albumin 2.7 * Lipase 70 * PT 13, INR 1.2, APTT 27.8 * Urinalysis: + leukocyte esterase, RBC, WBC, mucus and yeast. Culture indicated - preliminary growth yeast species. * Blood cultures no growth 1 day. * Chest xray - right lower lobe infiltrate. * CT head - no acute disease. Patient was admitted to ICU with pneumonia, UTI/sepsis. Initial findings included: * WBC 20.6, hemoglobin 10.3, hematocrit 30.8, platelet count 208, neutrophil 89.6% * sodium 139, potassium 4.4, chloride 103, carbon dioxide 27.4, BUN 46, creatinine 1.09, GFR 50, glucose 142 * lactic acid 1.8 total bilirubin 0.5, AST 51, ALT 94, alkaline phosphatase 86 * ammonia 31 * total creatine kinase 165, CK MB less than 0.5, troponin less than 0.02 * total protein 6.9, albumin 2.7 * lipase 70 * PT 13.0, INR 1.2, APTT 27.8 * urinalysis positive for leukocyte esterase, RBC, WBC, mucus, yeast - preliminarily positive yeast species * blood culture preliminary positive pleomorphic gram-positive rods * chest x-ray right lower lobe infiltrate * CT head negative acute process Patient is admitted to ICU with sepsis, pneumonia, UTI. Infectious disease, Dr. Fountain was consulted. Currently on vancomycin, azithromycin, cefepime, fluconazole. MRI brain within normal limits for patient's age, no recent infarct, mass or abnormal enhancement. CT abdomen pelvis ordered, results pending. Discussed with Dr. Poole, network developer who consulted palliative care for assistance with communication as spouse has great frustration from recent hospitalization with the lack of communication. He feels that continued aggressive care should continue at this time. Plan to proceed with additional testing including EEG, additional laboratory studies, lumbar puncture and neurology consult. Palliative care will continue to follow to assist with communication, symptom management and further clarification of treatment goals as needed. . Function/Cognitive Trajectory Prior to last hospitalization [facility], patient was living at home with her spouse. She was attending day care at local SNF. She was able to communicate, required some assistance with ADLs. She has also had some decreased by oral intake. Following her hospitalization upon discharge from [facility] the patient was between "sometimes she talks, but doesn't make any sense, sometimes just mumbles." . Review of Systems Constitutional: COMPLAINS OF: Weight loss, Change in appetite (decrease), Generalized weakness Respiratory: COMPLAINS OF: Shortness of breath Musculoskeletal: COMPLAINS OF: Joint pain Hematologic/Lymphatics: COMPLAINS OF: Bruising Neurologic: COMPLAINS OF: Poor Balance Psychiatric: COMPLAINS OF: Confusion Other ROS: ROS per EMR review, patient unable to answer questions. . Past Family Social History Coded Allergies: Olanzapine (Verified Allergy, Unknown, UNKNOWN, 06/17/16) Past Medical History Hypertension Dementia Coronary Artery Disease . Past Surgical History Unknown, not at bedside during my visit. . Reported Medications Reported Meds & Active Scripts Active Reported Dulcolax Supp (Bisacodyl) 10 Mg Supp 10 Mg RECTAL DAILY PRN Ativan (Lorazepam) 1 Mg Tab 1 Mg PO Q8H PRN Tramadol (Tramadol HCl) 50 Mg Tab 100 Mg PO Q6H PRN Tramadol (Tramadol HCl) 50 Mg Tab 50 Mg PO Q6H PRN Albuterol Neb (Albuterol Sulfate) 2.5 Mg/3 Ml Neb 2.5 Mg NEB QID NEB Multivitamin Adults (Multiple Vitamins W/ Minerals) 1 Tab 1 Tab PO DAILY Lisinopril 40 Mg Tab 40 Mg PO DAILY Levaquin (Levofloxacin) 500 Mg Tab 500 Mg PO DAILY Colace (Docusate Sodium) 100 Mg Cap 100 Mg PO DAILY Clopidogrel (Clopidogrel Bisulfate) 75 Mg Tab 75 Mg PO DAILY Amlodipine (Amlodipine Besylate) 10 Mg Tab 10 Mg PO DAILY . Current Medications Medications (Trade) Dose Ordered Sig/Louise Route Start Time Stop Time Status Last Admin (NS Flush) 2 ml UNSCH PRN .XX 06/18/16 00:00 (NS Flush) 2 ml BID .XX 06/18/16 09:00 06/19/16 08:23 (Tylenol) 650 mg Q6H PRN PO 06/18/16 00:00 Hold (Morphine Inj) 2 mg Q2H PRN IV 06/18/16 00:00 (Pepcid Inj) 20 mg Q12HR IV PUSH 06/18/16 09:00 06/19/16 08:23 (Ativan Inj) 2 mg Q4H PRN IV 06/18/16 00:00 (Tears Naturale Opth Soln) 1 drop TID EACH EYE 06/18/16 09:00 06/19/16 08:24 (Zofran Inj) 4 mg Q6H PRN IV 06/18/16 00:00 (Reglan Inj) 10 mg Q6H PRN IV 06/18/16 00:00 (Lovenox Inj) 40 mg Q24H SQ 06/18/16 00:00 Hold 06/18/16 23:12 Miscellaneous Information 1 Q361D XX 06/18/16 00:00 (Chlorhexidine 2% Cloth) 3 pack Taper DAILY@04 TOP 06/18/16 04:00 06/14/17 03:59 06/19/16 04:00 Chlorhexidine Gluconate 3 pack 3 pack UNSCH PRN TOP 06/18/16 00:00 Propofol 100 ml @ 0 mls/hr TITRATE IV 06/18/16 00:00 06/19/16 07:34 Azithromycin 500 mg/Sodium Chloride 250 ml @ 250 mls/hr Q24H IV 06/18/16 23:00 06/18/16 21:19 (Vancomycin Consult Pharmacy) 0 ml @ 0 mls/hr UNSCH OTHER 06/18/16 00:00 (SoluMEDROL INJ) 40 mg Q12H IV 06/18/16 00:00 06/18/16 23:12 (Beneprotein Powder) 2 pack TID G-TUBE 06/18/16 09:00 06/19/16 08:24 (Colace) 100 mg Q12H G-TUBE 06/18/16 03:00 06/19/16 01:16 (Norvasc) 10 mg DAILY PO 06/18/16 09:00 06/19/16 08:23 (Dulcolax Supp) 10 mg DAILY PRN RECTAL 06/18/16 05:15 (Plavix) 75 mg DAILY PO 06/18/16 09:00 Hold 06/18/16 08:14 (Ativan) 1 mg Q8H PRN PO 06/18/16 05:15 (Theragran M Tab) 1 tab DAILY PO 06/18/16 09:00 06/19/16 08:22 Lisinopril 40 mg 40 mg DAILY PO 06/18/16 09:00 06/19/16 08:22 (Vancomycin Inj/ NS 500 ml Inj) 517.5 ml @ 250 mls/hr Q24H IV 06/18/16 12:00 06/18/16 11:05 Miscellaneous Information SPECIFIC LAB TO BE DRAWN:VANCOMYCIN TROUGH DATE TO... ONCE ONCE .XX 06/21/16 11:45 06/21/16 11:46 Cefepime HCl 2000 mg/Sodium Chloride 100 ml @ 200 mls/hr Q12H IV 06/18/16 20:00 06/19/16 08:23 (Diflucan 200 Mg Premix Bag) 100 ml @ 100 mls/hr Q24H IV 06/18/16 16:00 06/18/16 15:25 (NovoLIN R SUPPLEMENTAL SCALE) 1 Q6HR SQ 06/19/16 12:00 . Family History Mother at 98 of old age. No known family history of dementia. Father at an early age, ?? heart disease. . Substance Use Tobacco: unknown. Alcohol:unknown. Prescription med abuse:unknown. Illicits:unknown. . Psychosocial History . Was living in [place] with her spouse until prior to recent hospitalization. Was recently at [facility]. Has 5 daughters and 1 son. . Spiritual/Cultural Factors Unknown. . Ethical and Legal Issues Notes indicate patient may have written advance directives. Will request copies. Patient is incapacitated to make her own health care decisions. If no written advance directives, according to [place] statutes health care proxy decision-making would fall to the patient's spouse. . Physical Exam Vital Signs Date Time Temp Pulse Resp B/P Pulse Ox O2 Delivery O2 Flow Rate FiO2 06/19/16 08:43 97 40 06/19/16 06:00 70 06/19/16 04:27 98 40 06/19/16 04:00 40 06/19/16 04:00 99.8 74 28 117/58 98 06/19/16 04:00 74 06/19/16 02:00 81 06/19/16 01:30 97 40 06/19/16 00:00 40 06/19/16 00:00 83 06/19/16 00:00 100.2 83 28 147/65 96 06/18/16 22:32 96 40 06/18/16 22:00 94 06/18/16 20:00 40 06/18/16 20:00 59 06/18/16 20:00 99.5 59 15 135/65 94 06/18/16 19:12 95 40 06/18/16 18:00 62 06/18/16 16:00 99.3 64 13 102/52 95 06/18/16 16:00 50 06/18/16 16:00 64 06/18/16 15:08 100 06/18/16 15:03 97 40 06/18/16 14:00 60 06/18/16 12:00 50 06/18/16 12:00 63 06/18/16 12:00 100.2 63 15 101/58 96 06/18/16 11:14 96 40 06/18/16 06/19/16 19:00 07:00 Intake Total 183 ml 1291 ml Output Total 280 ml 850 ml Balance -97 ml 441 ml Intake Oral 0 ml IV Total 59 ml 575 ml Tube Feeding 64 ml 716 ml Other 60 ml Output Urine Total 280 ml 850 ml # Bowel Movements 1 Exam CONSTITUTIONAL/GENERAL: This is an adequately nourished patient, sedated on [facility] vent. TUBES/LINES/DRAINS: ETT, OG, PIV left wrist, PIV left hand, Kay, podus boots. SKIN: No jaundice, rashes, or lesions. Ecchymoses on upper extremities. No wounds seen anteriorly. Skin temperature appropriate. Not diaphoretic. HEAD: Atraumatic. Normocephalic. EYES: Eyes closed. ENT: Unable to assess hearing. Nose without bleeding or purulent drainage. Difficult to visualize throat due to tubes. NECK: Trachea midline. CARDIOVASCULAR: Regular rate and rhythm without murmurs, gallops, or rubs. No JVD. Peripheral pulses symmetric. RESPIRATORY/CHEST: Symmetric, unlabored respirations on vent. Course breath sounds bilaterally. GASTROINTESTINAL: Abdomen soft, non-tender, nondistended. No guarding. Bowel sounds present. GENITOURINARY: Without palpable bladder distension. Kay catheter in place. MUSCULOSKELETAL: Extremities without clubbing, cyanosis, or edema. No mottling or clubbing. LYMPHATICS: No palpable cervical or supraclavicular adenopathy. NEUROLOGICAL: sedated. Does not open eyes to voice or exam. Withdraws to noxious stimuli. PSYCHIATRIC: sedated. . Diagnostic Tests Laboratory Laboratory Tests Test 06/17/16 06/18/16 06/18/16 06/18/16 22:20 00:07 01:55 04:49 White Blood Count 20.6 TH/MM3 16.9 TH/MM3 (4.0-11.0) (4.0-11.0) Red Blood Count 3.43 MIL/MM3 3.29 MIL/MM3 (4.00-5.30) (4.00-5.30) Hemoglobin 10.3 GM/DL 9.5 GM/DL (11.6-15.3) (11.6-15.3) Hematocrit 30.8 % 30.1 % (35.0-46.0) (35.0-46.0) Mean Corpuscular Volume 89.8 FL 91.6 FL (80.0-100.0) (80.0-100.0) Mean Corpuscular Hemoglobin 30.1 PG 29.0 PG (27.0-34.0) (27.0-34.0) Mean Corpuscular Hemoglobin 33.5 % 31.6 % Concent (32.0-36.0) (32.0-36.0) Red Cell Distribution Width 14.7 % 14.7 % (11.6-17.2) (11.6-17.2) Platelet Count 208 TH/MM3 155 TH/MM3 (150-450) (150-450) Mean Platelet Volume 10.1 FL 10.2 FL (7.0-11.0) (7.0-11.0) Neutrophils (%) (Auto) 89.6 % 92.8 % (16.0-70.0) (16.0-70.0) Lymphocytes (%) (Auto) 5.1 % 3.2 % (9.0-44.0) (9.0-44.0) Monocytes (%) (Auto) 5.1 % (0.0-8.0) 3.7 % (0.0-8.0) Eosinophils (%) (Auto) 0.0 % (0.0-4.0) 0.0 % (0.0-4.0) Basophils (%) (Auto) 0.2 % (0.0-2.0) 0.3 % (0.0-2.0) Neutrophils # (Auto) 18.4 TH/MM3 15.7 TH/MM3 (1.8-7.7) (1.8-7.7) Lymphocytes # (Auto) 1.1 TH/MM3 0.5 TH/MM3 (1.0-4.8) (1.0-4.8) Monocytes # (Auto) 1.0 TH/MM3 0.6 TH/MM3 (0-0.9) (0-0.9) Eosinophils # (Auto) 0.0 TH/MM3 0.0 TH/MM3 (0-0.4) (0-0.4) Basophils # (Auto) 0.0 TH/MM3 0.1 TH/MM3 (0-0.2) (0-0.2) CBC Comment DIFF FINAL AUTO DIFF Differential Comment FINAL DIFF MANUAL Prothrombin Time 13.0 SEC (9.8-11.6) Prothromb Time International 1.2 RATIO Ratio Activated Partial 27.8 SEC Thromboplast Time (24.3-30.1) Urine Color YELLOW (YELLW/STRAW) Urine Turbidity HAZY (CLEAR) Urine pH 5.0 (5.0-8.5) Urine Specific Winter 1.018 (1.002-1.035) Urine Protein TRACE mg/dL (NEG-TRACE) Urine Glucose (UA) NEG mg/dL (NEG) Urine Ketones NEG mg/dL (NEG) Urine Occult Blood LARGE (NEG) Urine Nitrite NEG (NEG) Urine Bilirubin NEG (NEG) Urine Urobilinogen LESS THAN 2.0 MG/DL (LESS THAN 2.0) Urine Leukocyte Esterase LARGE (NEG) Urine RBC 20 /hpf (0-3) Urine WBC 57 /hpf (0-5) Urine WBC Clumps FEW (NONE) Urine Squamous Epithelial 3 /hpf (0-5) Cells Urine Transitional Epithelial 3 /hpf (NONE) Cells Urine Amorphous Sediment RARE Urine Mucus FEW /lpf (OCC) Urine Yeast (Budding) MOD (NONE) Microscopic Urinalysis Comment CATH-CULTURE IND Sodium Level 139 MEQ/L 142 MEQ/L (136-145) (136-145) Potassium Level 4.4 MEQ/L 3.9 MEQ/L (3.5-5.1) (3.5-5.1) Chloride Level 103 MEQ/L 108 MEQ/L (98-107) (98-107) Carbon Dioxide Level 27.4 MEQ/L 25.9 MEQ/L (21.0-32.0) (21.0-32.0) Anion Gap 9 MEQ/L (5-15) 8 MEQ/L (5-15) Blood Urea Nitrogen 46 MG/DL (7-18) 46 MG/DL (7-18) Creatinine 1.09 MG/DL 1.00 MG/DL (0.50-1.00) (0.50-1.00) Estimat Glomerular Filtration 50 ML/MIN (>89) 55 ML/MIN (>89) Rate Random Glucose 142 MG/DL 138 MG/DL (74-106) (74-106) Lactic Acid Level 1.8 mmol/L (0.4-2.0) Calcium Level 9.1 MG/DL 9.0 MG/DL (8.5-10.1) (8.5-10.1) Phosphorus Level 3.3 MG/DL (2.5-4.9) Magnesium Level 2.1 MG/DL (1.5-2.5) Total Bilirubin 0.5 MG/DL 0.7 MG/DL (0.2-1.0) (0.2-1.0) Aspartate Amino Transf 51 U/L (15-37) 49 U/L (15-37) (AST/SGOT) Alanine Aminotransferase 94 U/L (10-53) 87 U/L (10-53) (ALT/SGPT) Alkaline Phosphatase 86 U/L (45-117) 75 U/L (45-117) Total Creatine Kinase 165 U/L (26-192) Creatine Kinase MB LESS THAN 0.5 NG/ML (0.5-3.6) Troponin I LESS THAN 0.02 LESS THAN 0.02 NG/ML NG/ML (0.02-0.05) (0.02-0.05) Total Protein 6.9 GM/DL 6.3 GM/DL (6.4-8.2) (6.4-8.2) Albumin 2.7 GM/DL 2.4 GM/DL (3.4-5.0) (3.4-5.0) Lipase 70 U/L (73-393) Blood Gas Puncture Site LT RADIAL Blood Gas Patient Temperature 98.6 Blood Gas HCO3 25 mmol/L (22-26) Blood Gas Base Excess 0.5 mmol/L (-2-2) Blood Gas Oxygen Saturation 99 % (90-100) Arterial Blood pH 7.42 (7.380-7.420) Arterial Blood Partial 39 mmHg (38-42) Pressure CO2 Arterial Blood Partial 299 mmHG Pressure O2 (61-120) Arterial Blood Oxygen Content 14.4 Vol % (12.0-20.0) Arterial Blood 0.7 % (0-4) Carboxyhemoglobin Arterial Blood Methemoglobin 0.1 % (0-2) Blood Gas Hemoglobin 9.8 G/DL (12.0-16.0) Oxygen Delivery Device VENTILATOR Blood Gas Ventilator Setting 600 14 5 PEEP Blood Gas Inspired Oxygen 100 % Ammonia 31 MCMOL/L (11-32) Differential Total Cells 100 Counted Neutrophils % (Manual) 82 % (16-70) Band Neutrophils % 13 % (0-6) Lymphocytes % 4 % (9-44) Monocytes % 1 % (0-8) Neutrophils # (Manual) 16.1 TH/MM3 (1.8-7.7) Platelet Estimate NORMAL (NORMAL) Platelet Morphology Comment NORMAL (NORMAL) Test 06/18/16 06/18/16 06/19/16 10:40 21:18 04:43 Troponin I LESS THAN 0.02 NG/ML (0.02-0.05) Sodium Level 143 MEQ/L 146 MEQ/L (136-145) (136-145) Potassium Level 3.9 MEQ/L 4.1 MEQ/L (3.5-5.1) (3.5-5.1) Chloride Level 109 MEQ/L 112 MEQ/L (98-107) (98-107) Carbon Dioxide Level 25.9 MEQ/L 23.9 MEQ/L (21.0-32.0) (21.0-32.0) Anion Gap 8 MEQ/L (5-15) 10 MEQ/L (5-15) Blood Urea Nitrogen 59 MG/DL (7-18) 57 MG/DL (7-18) Creatinine 0.85 MG/DL 0.80 MG/DL (0.50-1.00) (0.50-1.00) Estimat Glomerular Filtration 66 ML/MIN (>89) 71 ML/MIN (>89) Rate Random Glucose 196 MG/DL 200 MG/DL (74-106) (74-106) Calcium Level 8.9 MG/DL 9.5 MG/DL (8.5-10.1) (8.5-10.1) Total Bilirubin 0.3 MG/DL 0.3 MG/DL (0.2-1.0) (0.2-1.0) Aspartate Amino Transf 64 U/L (15-37) 380 U/L (15-37) (AST/SGOT) Alanine Aminotransferase 99 U/L (10-53) 355 U/L (10-53) (ALT/SGPT) Alkaline Phosphatase 77 U/L (45-117) 99 U/L (45-117) Total Protein 6.2 GM/DL 6.5 GM/DL (6.4-8.2) (6.4-8.2) Albumin 2.3 GM/DL 2.4 GM/DL (3.4-5.0) (3.4-5.0) White Blood Count 13.7 TH/MM3 (4.0-11.0) Red Blood Count 3.48 MIL/MM3 (4.00-5.30) Hemoglobin 10.1 GM/DL (11.6-15.3) Hematocrit 31.7 % (35.0-46.0) Mean Corpuscular Volume 91.2 FL (80.0-100.0) Mean Corpuscular Hemoglobin 29.0 PG (27.0-34.0) Mean Corpuscular Hemoglobin 31.9 % Concent (32.0-36.0) Red Cell Distribution Width 14.9 % (11.6-17.2) Platelet Count 156 TH/MM3 (150-450) Mean Platelet Volume 10.1 FL (7.0-11.0) Neutrophils (%) (Auto) 90.3 % (16.0-70.0) Lymphocytes (%) (Auto) 5.3 % (9.0-44.0) Monocytes (%) (Auto) 4.3 % (0.0-8.0) Eosinophils (%) (Auto) 0.0 % (0.0-4.0) Basophils (%) (Auto) 0.1 % (0.0-2.0) Neutrophils # (Auto) 12.4 TH/MM3 (1.8-7.7) Lymphocytes # (Auto) 0.7 TH/MM3 (1.0-4.8) Monocytes # (Auto) 0.6 TH/MM3 (0-0.9) Eosinophils # (Auto) 0.0 TH/MM3 (0-0.4) Basophils # (Auto) 0.0 TH/MM3 (0-0.2) CBC Comment DIFF FINAL Differential Comment Result Diagram: 06/19/16 0443 06/19/16 0443 Microbiology Microbiology Date/Time Procedure Status Source Growth 06/17/16 22:20 Aerobic Blood Culture - Preliminary Resulted Blood Peripheral NO GROWTH IN 1 DAY 06/17/16 22:20 Anaerobic Blood Culture - Preliminary Resulted Blood Peripheral NO GROWTH IN 1 DAY 06/17/16 22:20 Urine Culture - Preliminary Resulted Urine Catheterized Urine Yeast Species 06/17/16 22:25 Aerobic Blood Culture - Preliminary Resulted Blood Peripheral NO GROWTH IN 1 DAY 06/17/16 22:25 Anaerobic Blood Culture - Preliminary Resulted Blood Peripheral NO GROWTH IN 1 DAY 06/18/16 15:30 Urine Culture Received Urine Catheterized Urine Pending 06/18/16 15:30 Legionella Antigen - Final Complete Urine Catheterized Urine PRESUMPTIVE NEGATIVE FOR LEGIONELLA P... 06/18/16 15:30 Streptococcus pneumoniae Antigen (M - Final Complete Urine Catheterized Urine PRESUMPTIVE NEGATIVE FOR STREPTOCOCCU... . Imaging Last Impressions Chest X-Ray 06/18/16 0000 Signed Impressions: Service Date/Time: Saturday, June 18, 2016 05:42 - CONCLUSION: Repositioning of the endotracheal tube. New basilar consolidations. Paras Saleem Jr., MD Brain MRI 06/18/16 0000 Signed Impressions: Service Date/Time: Saturday, June 18, 2016 16:34 - CONCLUSION: 1. No acute findings. Examination is within normal limits for age. No recent infarct, mass or abnormal enhancement postcontrast. Esteban Jeff MD Head CT 06/17/162208 Signed Impressions: Service Date/Time: Saturday, June 18, 2016 03:48 - CONCLUSION: No acute disease. Paras Saleem Jr., MD . Procedures * 06/17/16 intubated . Patient/Family Conference Present at Family Conference: Spoke briefly with , Kaleb via telephone. . Family Conference Time (mins): 10 Family Conference Location: Telephone Issues Discussed: * Palliative care role, purpose, approach * Palliative care contact information provided Described palliative care as a supportive type role to assist with communication and symptom management. Will continue to follow throughout hospitalization, is thrilled to have our assistance with communication. Did not obtain additional information or dress goals of care during this conversation today. . Assessment and Plan Disease Oriented Problem List: (1) Respiratory failure (2) Sepsis (3) Pneumonia Symptom Scale: (1) Weakness 0-10 Scale: Unable to quantify (2) Dyspnea 0-10 Scale: Unable to quantify (3) Lethargy 0-10 Scale: Unable to quantify Pertinent Non-Medical Issues Psychosocial: . Spiritual: Unknown. Legal: Notes indicate patient may have written advance directives. Will request copies. Patient is incapacitated to make her own health care decisions. If no written advance directives, according to [place] statutes health care proxy decision-making would fall to the patient's spouse. Ethical issues impacting care: No known concerns at this time. . Important Contacts * Kaleb Busby, spouse: [phone] or [phone] . Prognosis Unable to adequately prognosticate at this time given pending test results. Patient is critically ill in ICU. . Code Status: Full Code Plan * Notes indicate patient may have written advance directives. Will request copies. Patient is incapacitated to make her own health care decisions. If no written advance directives, according to [place] statutes health care proxy decision-making would fall to the patient's spouse. * FULL CODE * Palliative care spoke with briefly via telephone to introduce palliative care services. Explained Dr. Poole requested our services to help improve communication as prior hospitalization spouse did not feel he was getting adequate communication. Will meet spouse 06/20/16 and continue to follow throughout hospital course to assist with communication, assist with symptom management and clarification of treatment goals as needed. * SYMPTOMS: Dyspnea: on mechanical ventilation. Was emergently intubated on 06/17 due to inability to protect airway. Lethargy: possible secondary to dementia and/or infection vs. other etiology, additional testing pending. Neurology consult pending. Weakness: secondary to infection, repeat hospitalization. Will require ongoing PT. No new medication recommendations at this time. * Palliative care number provided. * Palliative care will continue to follow throughout hospital course to assist with symptom management and clarification of goals as needed. . Thank you for the opportunity to participate in the care of Ms. Busby. Attestation To help prompt me to consider important information that might be impacting today's encounter and assessment, information from prior notes written by myself or my colleagues may have been "brought forward" into today's note. My signature on this note, however, is an attestation that I personally performed the exam, history, and/or decision-making noted today, and, unless otherwise indicated, the interactions with patient, family, and staff as well as the review of records all occurred today. I also attest that the listed assessment and stated plan reflect my best clinical judgment today based on the combination of historical information, prior notes, and today's exam/ interactions. When time spent is documented, it refers only to time spent today by the signer, or if indicated, combined time spent today by collaborating physician/nurse practitioner. DANIEL HARMON Jun 19, 2016 11:21
[2016-06-19] MEDS ORDERED: INSULIN NovoLIN REGULAR SUPPLEMENTAL SCALE SQ SCH (12:00)
[2016-06-19] MEDS: INSULIN NovoLIN REGULAR SUPPLEMENTAL SCALE SQ SCH ×3 (12:00→23:32)
--- NOTE | 2016-06-19 13:08 | PD.ID.CON ---
History of Present Illness Service ID Consult Requested By Dr Poole Reason for Consult sepsis, UTI Primary Care Physician Michele Ho M.D. Diagnoses: History of Present Illness Pt is a 70 year old female with dementia, hypertension and coronary artery disease presented to [facility] emergency department via EMS on 06/17/16 from long-term with worseeing lethargy, decreased mental status and with respiratory distress. She reportedly "aspirated over the weekend" per EMS. Patient was nonverbal upon arrival.She was emergently intubated for airway protection. She has abnormal UA and is growing yeast inthe uruine clx Her CXR Her LFTs are elevated and climbing up since amission Normal bilirubin Per records from [facility] pt was previosly hopitalized for similar issue, fever which was thought to be due to recurrent UTIs Review of Systems ROS Limitations: Intubated, Altered Mental Status, Unresponsive Past Family Social History Allergies: Coded Allergies: Olanzapine (Verified Allergy, Unknown, UNKNOWN, 06/17/16) Past Medical History Hypertension Dementia Coronary Artery Disease ? CVA Past Surgical History non reported Active Ordered Medications Medications where reviewed in EMR Antibiotics Include: azithro cefepime vancomycin Family History Non-Contributory. Social History No Tobacco. No ETOH. No Illicit Drugs. She has been a resident of [facility]. Physical Exam Vital Signs Vital Signs Date Time Temp Pulse Resp B/P Pulse Ox O2 Delivery O2 Flow Rate FiO2 06/19/16 11:21 98 40 06/19/16 08:43 97 40 06/19/16 06:00 70 06/19/16 04:27 98 40 06/19/16 04:00 40 06/19/16 04:00 99.8 74 28 117/58 98 06/19/16 04:00 74 06/19/16 02:00 81 06/19/16 01:30 97 40 06/19/16 00:00 40 06/19/16 00:00 83 06/19/16 00:00 100.2 83 28 147/65 96 06/18/16 22:32 96 40 06/18/16 22:00 94 06/18/16 20:00 40 06/18/16 20:00 59 06/18/16 20:00 99.5 59 15 135/65 94 06/18/16 19:12 95 40 06/18/16 18:00 62 06/18/16 16:00 99.3 64 13 102/52 95 06/18/16 16:00 50 06/18/16 16:00 64 06/18/16 15:08 100 06/18/16 15:03 97 40 06/18/16 14:00 60 Physical Exam CONSTITUTIONAL/GENERAL: This is an obese elderly patient, in no apparent distress. TUBES/LINES/DRAINS: SKIN: No jaundice, rashes, or lesions. Ecchymoses on upper extremities. No wounds seen anteriorly. Skin temperature appropriate. Not diaphoretic. HEAD: Atraumatic. Normocephalic. EYES: Pupils equal and round and reactive. Extraocular motions intact. No scleral icterus. No injection or drainage. Fundi not examined. ENT: Hearing can not be assessed. Nose without bleeding or purulent drainage. Oraly intubated NECK: Trachea midline. somewhat stiff CARDIOVASCULAR: Regular rate and rhythm without murmurs, gallops, or rubs. No JVD. Peripheral pulses symmetric. RESPIRATORY/CHEST: Symmetric, unlabored respirations. Clear to auscultation. Breath sounds equal bilaterally. No wheezes, rales, or rhonchi. GASTROINTESTINAL: Abdomen soft, non-tender (no reaction to palpation), mildly distended. No hepato-splenomegaly, or palpable masses. No guarding. Bowel sounds present. GENITOURINARY: Without palpable bladder distension. Kay catheter in place. MUSCULOSKELETAL: Extremities without clubbing, cyanosis, or edema. No joint tenderness or effusion noted. No mottling or clubbing. LYMPHATICS: No palpable cervical or supraclavicular adenopathy. NEUROLOGICAL: Unresponsive PSYCHIATRIC: unable to assess Laboratory Laboratory Tests Test 06/18/16 06/19/16 06/19/16 21:18 04:43 11:17 Sodium Level 143 146 Potassium Level 3.9 4.1 Chloride Level 109 112 Carbon Dioxide Level 25.9 23.9 Anion Gap 8 10 Blood Urea Nitrogen 59 57 Creatinine 0.85 0.80 Estimat Glomerular Filtration 66 71 Rate Random Glucose 196 200 Calcium Level 8.9 9.5 Total Bilirubin 0.3 0.3 Aspartate Amino Transf 64 380 (AST/SGOT) Alanine Aminotransferase 99 355 (ALT/SGPT) Alkaline Phosphatase 77 99 Total Protein 6.2 6.5 Albumin 2.3 2.4 White Blood Count 13.7 Red Blood Count 3.48 Hemoglobin 10.1 Hematocrit 31.7 Mean Corpuscular Volume 91.2 Mean Corpuscular Hemoglobin 29.0 Mean Corpuscular Hemoglobin 31.9 Concent Red Cell Distribution Width 14.9 Platelet Count 156 Mean Platelet Volume 10.1 Neutrophils (%) (Auto) 90.3 Lymphocytes (%) (Auto) 5.3 Monocytes (%) (Auto) 4.3 Eosinophils (%) (Auto) 0.0 Basophils (%) (Auto) 0.1 Neutrophils # (Auto) 12.4 Lymphocytes # (Auto) 0.7 Monocytes # (Auto) 0.6 Eosinophils # (Auto) 0.0 Basophils # (Auto) 0.0 CBC Comment DIFF FINAL Differential Comment Thyroid Stimulating Hormone 0.221 3rd Gen Date/Time Procedure Status Source Growth 06/18/16 15:30 Urine Culture - Preliminary Resulted Urine Catheterized Urine NO GROWTH IN 24 HOURS. 06/18/16 15:30 Legionella Antigen - Final Complete Urine Catheterized Urine PRESUMPTIVE NEGATIVE FOR LEGIONELLA P... 06/18/16 15:30 Streptococcus pneumoniae Antigen (M - Final Complete Urine Catheterized Urine PRESUMPTIVE NEGATIVE FOR STREPTOCOCCU... 06/17/16 22:25 Aerobic Blood Culture - Preliminary Resulted Blood Peripheral NO GROWTH IN 2 DAYS 06/17/16 22:25 Anaerobic Blood Culture - Preliminary Resulted Blood Peripheral NO GROWTH IN 2 DAYS Result Diagram: 06/19/16 0443 06/19/16 0443 Imaging Last Impressions Abdomen/Pelvis CT 06/19/16 0000 Signed Impressions: Service Date/Time: June 17:46 - CONCLUSION: Right ovarian cyst, uterine fibroid and right lower lobe infiltrate. K. Jasbir Ragyoza MD Chest X-Ray 06/18/16 0000 Signed Impressions: Service Date/Time: Saturday, June 18, 2016 05:42 - CONCLUSION: Repositioning of the endotracheal tube. New basilar consolidations. Paras Saleem Jr., MD Brain MRI 06/18/16 0000 Signed Impressions: Service Date/Time: Saturday, June 18, 2016 16:34 - CONCLUSION: 1. No acute findings. Examination is within normal limits for age. No recent infarct, mass or abnormal enhancement postcontrast. Esteban Jeff MD Head CT 06/17/16 [id number] Signed Impressions: Service Date/Time: Saturday, June 18, 2016 03:48 - CONCLUSION: No acute disease. Paras Saleem Jr., MD Assessment and Plan Assessment and Plan Fever with MS change agree with plan for LP after holding plavix enough time Undelying dementia UTI ? PNA Acute VDRF Low grade bacteremia 2/2 GPR ? significance Fnguria cont azithro, cefepime, vanco - fu P clx Discussed Condition With Milagros Grant MD Jun 19, 2016 13:08
[2016-06-19] MEDS ORDERED: DIATRIZOATE MEGLUM/DIATRIZOATE SOD 9 ML CUP PO ONE (14:45)
[2016-06-19] MEDS: VANCOMYCIN INJ 1,750 MG in SODIUM CHLORID 0.9% 500 ML INJ 500 ML IV SCH (14:52)
[2016-06-19] MEDS: methylPREDNISolone SOD SUCC 40 MG/1 ML VIAL IV SCH ×2 (14:52→23:32)
[2016-06-19] MEDS ORDERED: IOHEXOL 350 MG/ML 10 ML VIAL (for RAD DIAG) IV ONE (17:53)
[2016-06-19] MEDS: FLUCONAZOLE 200 MG PREMIX BAG 100 ML IV SCH (18:28)
--- NOTE | 2016-06-19 18:36 | RADRPT ---
EXAM DATE/TIME: 06/19/2016 17:46 [facility] COMPARISON: No previous studies available for comparison. INDICATIONS : Elevated LFTs with reccurent UTIs. IV CONTRAST: 76 cc Omnipaque 350 (iohexol) IV ORAL CONTRAST: Prescribed oral contrast ingested. RADIATION DOSE: 16.87 CTDIvol (mGy) MEDICAL HISTORY : Hypertension. SURGICAL HISTORY : None. ENCOUNTER: Initial ACUITY: 1 day PAIN SCALE: Non-responsive LOCATION: Abdomen/pelvis TECHNIQUE: Volumetric scanning of the abdomen and pelvis was performed. Using automated exposure control and adjustment of the mA and/or kV according to patient size, radiation dose was kept as low as reasonably achievable to obtain optimal diagnostic quality images. FINDINGS: CT Abdomen: The liver, spleen, pancreas, adrenals are unremarkable. There is no evidence for any appr eciable pathological adenopathy, free fluid, or bowel obstruction. Chronic vascular calcifications ar e present involving the aorta, iliac arteries without any significant stenosis or aneurysmal dilatati ons for technique. There is evidence for old fracture of left L1 transverse process. Coronary artery calcifications are seen typically seen with CAD and need to be evaluated clinically. Mild right lung base atelectasis and/or infiltrate is seen. There are simple cysts in both kidneys the largest on the left measures 2.[address] pelvis: There is an approximate 1.9 cm cyst in the right ovary most likely benign with a tiny calc ified fibroid. There is no evidence for abscess formation, or any significant adenopathy within the p jessie. There is moderate amount of stool throughout the colon. CONCLUSION: Right ovarian cyst, uterine fibroid and right lower lobe infiltrate. Shaheen Raygoza MD on June 19, 2016 at 18:30 Board Certified Radiologist. This report was verified electronically.
--- NOTE | 2016-06-19 20:29 | MG ---
cc: SILVER LUX M.D. Lab No: [id number] Date: 06/20/2015 Age: 70 Sex: F Race: REFERRING: Amelie. ROOM: 512. Intubated. Photic stimulation done. Sedation with Diprivan at 18 micrograms turned off 18 minutes prior to the study. The patient moves the extremities spontaneously. Does not follow commands. CT negative. A 70-year-old woman with respiratory distress, altered mental status, nonverbal, history of dementia, stroke, hyperlipidemia, hypertension. MEDICATIONS: 1. Plavix. 2. Solu-Medrol. 3. Versed. 4. Diprivan. 5. Others. DESCRIPTION OF THE RECORD: The patient's overall background is of 2-3 Hz slowing. There are some sharp waves seen starting on epoch 34 that seem more prominent in the frontal and central leads. It is paroxysmal in nature. Photic stimulation shows no significant driving response. IMPRESSION: Abnormal EEG due to moderate slowing of background with sharp waves which may be focus for seizures in this patient. Consideration would be starting on an anti-epileptic medication and follow-up EEG. Clinical correlation. MD CAYDEN Rubalcava/LINA /4:05 PM /8:15 PM
[2016-06-19] MEDS ORDERED: levETIRAcetam 1000 MG INJ 100 ML IV ONE (22:15)
[2016-06-19] MEDS: AZITHROMYCIN INJ 500 MG in SODIUM CHLOR 0.9% 250 ML INJ 250 ML IV SCH (22:45)
[2016-06-20] VITALS (19 sets, daily range): BP systolic 115–154; BP diastolic 56–81; PULSE 53–86; RESP 12–30; TEMP 97.8–99.6; O2SAT 97–100
[2016-06-20] MEDS: DOCUSATE SODIUM 100 MG CAP G-TUBE SCH ×2 (03:32→15:18)
[2016-06-20] MEDS: CHLORHEXIDINE GLUCONATE 2 % 1 PACK (2 CLOTHS) TOP SCH (03:33)
[2016-06-20] MEDS: PROPOFOL 1000 MG/100 ML INJ 100 ML IV SCH ×5 (03:33→15:18)
[2016-06-20] MEDS: INSULIN NovoLIN REGULAR SUPPLEMENTAL SCALE SQ SCH ×5 (05:19→20:01)
[2016-06-20] MEDS: VANCOMYCIN INJ 1,500 MG in SODIUM CHLORID 0.9% 500 ML INJ 500 ML IV SCH (05:19)
[2016-06-20] MEDS: RESP: ALBUTEROL 2.5 MG/3 ML NEB (SCH) NEB ×4 (07:37→19:35)
[2016-06-20] MEDS: levETIRAcetam 1000 MG INJ 100 ML IV SCH ×2 (09:00→20:01)
[2016-06-20] MEDS ORDERED: DEXTROSE 50% IN WATER 50 ML VIAL(D50) IV PUSH PRN (09:00)
[2016-06-20] MEDS ORDERED: GLUCAGON 1 MG/ML VIAL OTHER PRN (09:00)
[2016-06-20] MEDS: BENEPROTEIN POWDER 1 PACK G-TUBE SCH ×3 (09:00→18:00)
--- NOTE | 2016-06-20 09:21 | HHI.CCPN ---
Subjective Remarks/Hospital Course 06/18: 70-year-old unfortunate female custodial resident due to lack of capacity to live independently due to progressively worsening dementia. Patient was progressively getting more lethargic within last few days. She was also noted to be febrile. Per daughter patient baseline is between" sometimes she talks but doesn't make any sense" but sometimes just mumbles. She has also had some decreased by mouth intake. She was found more lethargic almost unresponsive and was transferred to emergency department. In the ED she was found not to be able to protect her airways and was intubated by ER attending. She was admitted to the ICU. 06/19: Patient remains sedated and mechanically ventilated. RASS score of -2. No acute events overnight. Tmax overnight of 100.2F. Review of records from [facility] admission on 05/06/16 patient was admitted due to fevers, rigors, dysuria however urine culture was negative. Blood cultures obtained during that admission were found to be intermittently positive however organisms were all different including staph epi and staph hominis and thought to be contaminants. CXR and head CT were negative. Flu A/B ags were negative. It was noted that the patient had been taking Zyprexa and that medication has been discontinued due to possible neuroleptic-related fever. Patient had also been taking Haldol prn as well as Effexor. Echocardiogram was negative no vegetations. 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 Pt also had elevated LFTs during that admission which trended down and biliary scan was negative. 06/20 Patient is intubated and sedated with Diprivan. Afebrile for LP today. Objective Vital Signs Date Time Temp Pulse Resp B/P Pulse Ox O2 Delivery O2 Flow Rate FiO2 06/20/16 07:38 100 35 06/20/16 06:00 82 06/20/16 04:00 97.8 22 154/81 06/18/16 03:00 Ventilator 06/17/16 23:20 15 Intake and Output 06/19/16 06/19/16 06/20/16 08:00 16:00 00:00 Intake Total 721 ml 1114 ml 604 ml Output Total 500 ml 950 ml 450 ml Balance 221 ml 164 ml 154 ml Result Diagram: 06/19/16 0443 06/19/16 0443 Other Results Laboratory Tests Test 06/19/16 06/19/16 11:17 14:39 Free Thyroxine 1.01 NG/DL Thyroid Stimulating Hormone 0.221 uIU/ML 3rd Gen Hepatitis A IgM Antibody NEGATIVE Hepatitis B Surface Antigen NEGATIVE Hepatitis B Core IgM Antibody NEGATIVE Hepatitis C Antibody NEGATIVE Total Triiodothyronine 37 NG/DL Imaging Last Impressions Abdomen/Pelvis CT 06/19/16 0000 Signed Impressions: Service Date/Time: June 17:46 - CONCLUSION: Right ovarian cyst, uterine fibroid and right lower lobe infiltrate. Shaheen Raygoza MD Chest X-Ray 06/18/16 0000 Signed Impressions: Service Date/Time: Saturday, June 18, 2016 05:42 - CONCLUSION: Repositioning of the endotracheal tube. New basilar consolidations. Paras Saleem Jr., MD Brain MRI 06/18/16 0000 Signed Impressions: Service Date/Time: Saturday, June 18, 2016 16:34 - CONCLUSION: 1. No acute findings. Examination is within normal limits for age. No recent infarct, mass or abnormal enhancement postcontrast. Esteban Jeff MD Head CT 06/17/[id number] Signed Impressions: Service Date/Time: Saturday, June 18, 2016 03:48 - CONCLUSION: No acute disease. Paras Saleem Jr., MD Objective Remarks GENERAL: Well-nourished, well-developed patient. Sedated and intubated SKIN: Warm and dry. HEAD: Normocephalic. EYES: No scleral icterus. No injection or drainage. NECK: Supple, trachea midline. No JVD or lymphadenopathy. CARDIOVASCULAR: Regular rate and rhythm without murmurs, gallops, or rubs. RESPIRATORY: Breath sounds equal bilaterally. No accessory muscle use. GASTROINTESTINAL: Abdomen soft, non-tender, nondistended. MUSCULOSKELETAL: No cyanosis, or edema. Neuro: Sedated A/P Assessment and Plan NEURO: AMS History of dementia Delirium - On Diprivan infusion for sedation, daily sedation vacation - Neuro consulted- Dr. Price -EEG showed mod slowing with sharp waves which could be focus for seizures Continue with Keppra -For LP today RESP: Respiratory failure, now mechanically ventilated RLL infiltrate - Continue with vent support keep sat > 92% - ICU vent bundle, Bronchodilators - SBT trials as kelsi. CV: Hypertension -Monitor HR and BP keep MAP>65mmHg -On Lisinopril 40mg daily GI: -Elevated LFT's. - Continue tube feeds with Jevity 1.5 lina at goal of 60 cc/hr - Continue Colace for bowel regimen -CT abdomen/pelvis: Right ovarian cyst, uterine fibroid and right lower lobe infiltrate. Normal liver : -Monitor renal function, I/O's, electrolytes replacement per protocol. -Place on NS@75ml/hr HEME: Anemia, stable - Monitor CBC ID: Sepsis Funguria RLL infiltrate Leukocytosis - 06/17 BC: Pleomorphic GP rods 03/19 bottles- Liley contaminant - 06/17 UCx growing yeast, pneumococcal legionella presumptive negatives -Continue with abx per ID (On vancomycin (06/18 -), cefepime (06/18 -), azithromycin (06/17 -), Diflucan (06/18 -) -For LP today ENDO: - Continue accuchecks - Novolin (low dose) SS - TSH ordered PROPH: DVT PPX: TEDs, hold subq Lovenox for possibility of LP GI PPX: Pepcid CCT 30 mins Bret Spear MD Jun 20, 2016 09:21
[2016-06-20] MEDS ORDERED: POTASSIUM CHLOR 40 MEQ PREMIX 100 ML IV PRN ×2 (09:30)
[2016-06-20] MEDS ORDERED: POTASSIUM PHOSPHATE MONOBASIC 500 MG TAB PO PRN (09:30)
[2016-06-20] MEDS ORDERED: POTASSIUM CHLOR 20 MEQ PREMIX 100 ML IV PRN ×2 (09:30)
[2016-06-20] MEDS ORDERED: POTASSIUM PHOSPHATE INJ 30 MMOL in SODIUM CHLOR 0.9% 250 ML INJ 250 ML IV PRN (09:30)
[2016-06-20] MEDS ORDERED: SODIUM PHOSPHATE INJ 30 MMOL in SODIUM CHLOR 0.9% 250 ML INJ 240 ML IV PRN (09:30)
[2016-06-20] MEDS ORDERED: POTASSIUM PHOSPHATE MONOBASIC 500 MG TAB PO/TUBE PRN (09:30)
[2016-06-20] MEDS ORDERED: MAGNESIUM OXIDE 400 MG TAB PO PRN (09:30)
[2016-06-20] MEDS ORDERED: MAGNESIUM SULFATE INJ 4 GM in SODIUM CHLORIDE 0.9% INJ 92 ML IV PRN (09:30)
[2016-06-20] MEDS ORDERED: MAGNESIUM SULFATE INJ 2 GM in SODIUM CHLORIDE 0.9% INJ 96 ML IV PRN (09:30)
[2016-06-20 10:15] LABS: AUTOMATED NEUTROPHIL # 11.4 TH/MM3 (1.8-7.7); BASOPHIL % 0.3 % (0.0-2.0); HEMATOCRIT 32.2 % (35.0-46.0); LYMPH % 8.1 % (9.0-44.0); LYMPHOCYTE # 1.1 TH/MM3 (1.0-4.8); MEAN CELL VOLUME 90.5 FL (80.0-100.0); MEAN CORPUSCULAR HEMOGLOBIN 30.6 PG (27.0-34.0); MEAN CORPUSCULAR HGB CONC 33.8 % (32.0-36.0); MONO % 5.8 % (0.0-8.0); NEUT % 85.8 % (16.0-70.0); PLATELET COUNT 183 TH/MM3 (150-450); RED BLOOD COUNT 3.56 MIL/MM3 (4.00-5.30); RED CELL DISTRIBUTION WIDTH 14.7 % (11.6-17.2); WHITE BLOOD COUNT 13.3 TH/MM3 (4.0-11.0)
[2016-06-20 10:19] LABS: HEMO FLAGS AUTO DIFF
[2016-06-20 10:40] LABS: ALKALINE PHOSPHATASE 103 U/L (45-117); ALT (GPT) 490 U/L (10-53); ANION GAP 8 MEQ/L (5-15); AST (GOT) 200 U/L (15-37); BICARBONATE 27.3 MEQ/L (21.0-32.0); BLOOD UREA NITROGEN 38 MG/DL (7-18); CHLORIDE 109 MEQ/L (98-107); GLOMERULAR FILTRATION RATE 99 ML/MIN (>89); MAGNESIUM 2.2 MG/DL (1.5-2.5); POTASSIUM 4.6 MEQ/L (3.5-5.1); SODIUM (NA) 144 MEQ/L (136-145); TOTAL BILIRUBIN ADULT 0.3 MG/DL (0.2-1.0)
[2016-06-20 10:51] LABS: BANDS 5 % (0-6); NEUTROPHIL # MANUAL DIFF 11.6 TH/MM3 (1.8-7.7); POLYS (SEG NEUTROPHILS) 82 % (16-70); WBC DIFF SAMPLE 100
[2016-06-20 10:54] LABS: PLATELET ESTIMATE SMEAR NORMAL (NORMAL); PLATELET MORPHOLOGY NORMAL (NORMAL); SCAN/DIFF FINAL DIFF MANUAL
[2016-06-20] MEDS: ARTIFICIAL TEARS OPTH SOLN 15 ML BTL EACH EYE SCH ×3 (11:08→18:00)
[2016-06-20] MEDS: FAMOTIDINE 20 MG/2 ML VIAL IV PUSH SCH ×2 (11:09→20:00)
[2016-06-20] MEDS: methylPREDNISolone SOD SUCC 40 MG/1 ML VIAL IV SCH ×2 (11:09→23:39)
[2016-06-20] MEDS: MULTIVITAMINS/MINERALS THERAPEUTIC TAB PO SCH (11:09)
[2016-06-20] MEDS: LISINOPRIL 20 MG TAB PO SCH (11:10)
[2016-06-20] MEDS: SODIUM CHLOR 0.9% 1000 ML INJ 1,000 ML IV SCH ×2 (11:12→22:09)
[2016-06-20] MEDS: SODIUM CHLORIDE 0.9% FLUSH 10 ML FLUSH SCH ×2 (11:15→20:01)
[2016-06-20] MEDS: CEFEPIME INJ 2,000 MG in SODIUM CHLORIDE 0.9% INJ 100 ML IV SCH ×2 (11:17→20:01)
--- NOTE | 2016-06-20 12:55 | MB ---
cc: CARLOS APPLE MD DATE OF CONSULTATION: 06/19/2016 REASON FOR CONSULTATION: Altered mental status. HISTORY OF PRESENT ILLNESS The patient is intubated and sedated, hence the history information is obtained from the medical records and the nurse at bedside. Miss Busby is a 70-year-old old female who was then longterm resident with a progressively worsening dementia and lack of capacity to live independently. Before the admission the patient was reportedly getting more lethargic and she was noted to be febrile. As per the daughter the patients cognitive baseline is between sometimes she talks well sometimes she does not make any sense. She was found lethargic and almost unresponsive was transferred to emergency room. She was intubated because she was not able to protect her airway and admitted to the intensive care unit. The patient was found to be afebrile and a review of records from [facility] on 05/06/2016 where she was also admitted for fevers, rigors and dysuria, however, urine culture was negative. Blood culture was intermittently positive, Chest x-ray and head CT scan were reportedly normal and brain MRI with no acute finding. A cardiac echo was negative for any vegetations. Labs; white blood cells initially with 20.6 now down to 13.7, hemoglobin 10.1, MCV 31.7, platelet count 156, INR 1.2, sodium 146, chloride 112, potassium 4.1, BUN 57, creatinine 0.8, glucose 200, AST 380, ALT 355, alkaline phosphatase 99, Albumin 2.4, total PT 37, TSH 221. REVIEW OF SYSTEMS Unable to obtain. The patient is sedated and intubated. PAST MEDICAL HISTORY Unable to obtain; from medical records; hypertension, coronary artery disease, dementia, Alzheimer's for the last 10 years. PAST SURGICAL HISTORY Unable to obtain ALLERGIES OLANZAPINE. MEDICATIONS 1. Dulcolax 2. Ativan 3. Tramadol. 4. Albuterol. 5. Multivitamin. 6. Lisinopril. 7. Levaquin. 8. Colace. 9. Carbidopa. 10. Amlodipine. FAMILY HISTORY: family history noncontributory. SOCIAL HISTORY Negative for illicit drug abuse and alcohol or smoking. PHYSICAL EXAMINATION GENERAL: The patient is sedated and ventilated nonverbal no spontaneous eye opening well-developed, well-nourished, sedated and intubated HEAD, EYES, EARS, NOSE, AND THROAT: head atraumatic, normocephalic. Eyes no gaze deviation. No injection on eyes. NECK: Stiff positive for neck rigidity. CARDIOVASCULAR SYSTEM: Regular rate and rhythm. No murmurs. RESPIRATORY: Clear to auscultation and no wheezes. MUSCULOSKELETAL: No cyanosis or edema. EXTREMITIES: Stiff extremities. NEUROLOGIC: Awake and sedated dilated and sedated. Positive for neck stiffness. No gaze deviation. Pupils 2 mm bilateral symmetrical, sluggishly reacting to light. Upper and lower extremities. Reflexes 2+ upper extremities 1+ bilateral ankle plantar bilateral upgoing. No clonus. DIAGNOSTIC IMPRESSION 1. Encephalopathy. 2. Possible etiology is a meningeal encephalitic pathology with confusion high-grade fever and neck stiffness with a negative head imaging. 3. Respiratory failure. 4. Hypertension. 5. Elevated liver enzymes. 6. Sepsis. 7. Electroencephalogram; abnormal electroencephalogram with background sharp waves which maybe epileptogenic PLAN: 1. Neuro checks q one hourly. 2. Consider lumbar puncture. 3. Deep venous thrombosis prophylaxis. 4. TIA prophylaxis. 5. Start Keppra 500 mg daily. 6. Follow up electroencephalogram. 7. Seizure precautions. Thank you for the opportunity to participate in the care of your patient. MD ENDY Osorio/laura /10:00 PM /12:44 PM JESSICA
[2016-06-20 13:35] LABS: ANA SCREEN NEG (NEG)
[2016-06-20] MEDS: FLUCONAZOLE 200 MG PREMIX BAG 100 ML IV SCH (15:18)
[2016-06-20] MEDS: fentaNYL DRIP 250 ML IV SCH (18:17)
--- NOTE | 2016-06-20 18:18 | HHI.HCPN ---
Reason for visit a. To assist with evaluation and management of symptoms including: dyspnea, lethargy, weakness. b. To assist medical decision maker(s) with: better understanding of current medical conditions; weighing benefits/burdens of medical treatment options; making medical treatment decisions. . Subjective/Interval History Patient seen and examined in ICU. Daughter Kristyn at bedside. Tmax 99.6. Vital signs stable. Remains on mechanical ventilation. FI 02 40%. WBC 13.3, hematoma 10.9, platelet 183. AST and ALT remain elevated. Blood cultures preliminarily positive, awaiting final report. Urinalysis no growth 48 hours. MRI brain no acute findings. CT scan abdomen pelvis right ovarian cyst, uterine fibroids and right lower lobe infiltrate. Neurology, Dr. Price was consulted for altered mental status. EEG revealed encephalopathy with background sharp waves which may be epileptogenic, Keppra started. Plan for lumbar puncture. Discussed with Dr. Spear. . Family/friend interactions Medical update provided to daughter at bedside. Palliative care number provided. Explained we need additional information for further prognostication. Palliative care was consulted for assistance in communication , number provided. Agreed to update family on 06/23/16. Daughter verbalizes appreciation for time spent today. She thankful that the medical team is being so thorough. . Advance Directives Advance Directive Specifics Significant change in goals: FULL CODE. No known written advance directives. Patient is incapacitated to make healthcare decisions, uncertain if she will regain capacity at this time. According to [place] statutes health care proxy decision-making falls to the patient's spouse. . Objective Vital Signs Date Time Temp Pulse Resp B/P Pulse Ox O2 Delivery O2 Flow Rate FiO2 06/20/16 16:00 40 06/20/16 16:00 99.6 64 15 115/56 100 06/20/16 16:00 64 06/20/16 14:26 99 35 06/20/16 14:00 86 06/20/16 13:00 40 06/20/16 12:00 40 06/20/16 12:00 79 06/20/16 12:00 98.9 79 30 151/67 100 06/20/16 11:52 35 06/20/16 11:15 98 35 06/20/16 10:00 75 06/20/16 08:00 98.9 72 17 143/74 100 06/20/16 08:00 72 06/20/16 08:00 40 06/20/16 07:38 100 35 06/20/16 06:00 82 06/20/16 04:13 100 40 06/20/16 04:00 97.8 79 22 154/81 100 06/20/16 04:00 40 06/20/16 04:00 79 06/20/16 02:00 74 06/20/16 01:20 100 40 06/20/16 00:00 40 06/20/16 00:00 99.0 78 22 135/65 100 06/20/16 00:00 78 06/19/16 22:47 100 40 06/19/16 22:00 78 06/19/16 20:00 84 06/19/16 20:00 40 06/19/16 20:00 99.3 84 27 147/64 95 06/19/16 19:15 98 40 06/19/16 18:14 100 100 Intake & Output 06/20/16 06/20/16 07:00 19:00 Intake Total 1342 ml 1480 ml Output Total 1150 ml 800 ml Balance 192 ml 680 ml IV Total 931 ml 1243 ml Tube Feeding 351 ml 177 ml Other 60 ml 60 ml Output Urine Total 1150 ml 800 ml Tube Feeding Residual Discard 0 ml # Bowel Movements 0 Physical Exam CONSTITUTIONAL/GENERAL: This is an adequately nourished patient, sedated on mech vent. TUBES/LINES/DRAINS: ETT, OG, PIV left wrist, PIV left hand, Kay, podus boots. SKIN: No jaundice, rashes, or lesions. Ecchymoses on upper extremities. No wounds seen anteriorly. Skin temperature appropriate. Not diaphoretic. EYES: Eyes closed. ENT: Unable to assess hearing. Nose without bleeding or purulent drainage. Difficult to visualize throat due to tubes. CARDIOVASCULAR: Regular rate and rhythm without murmurs, gallops, or rubs. No JVD. Peripheral pulses symmetric. RESPIRATORY/CHEST: Symmetric, unlabored respirations on vent. Course breath sounds bilaterally. GASTROINTESTINAL: Abdomen soft, non-tender, nondistended. No guarding. Bowel sounds present. GENITOURINARY: Without palpable bladder distension. Kay catheter in place. MUSCULOSKELETAL: Extremities without clubbing, cyanosis, or edema. No mottling or clubbing. NEUROLOGICAL: sedated. Does not open eyes to voice or exam. Withdraws to noxious stimuli. PSYCHIATRIC: sedated. . Diagnostic Tests Laboratory Laboratory Tests Test 06/17/16 06/18/16 06/18/16 06/18/16 22:20 00:07 01:55 04:49 Prothrombin Time 13.0 SEC (9.8-11.6) Prothromb Time International 1.2 RATIO Ratio Activated Partial 27.8 SEC Thromboplast Time (24.3-30.1) Sodium Level 139 MEQ/L 142 MEQ/L (136-145) (136-145) Potassium Level 4.4 MEQ/L 3.9 MEQ/L (3.5-5.1) (3.5-5.1) Chloride Level 103 MEQ/L 108 MEQ/L (98-107) (98-107) Carbon Dioxide Level 27.4 MEQ/L 25.9 MEQ/L (21.0-32.0) (21.0-32.0) Anion Gap 9 MEQ/L (5-15) 8 MEQ/L (5-15) Blood Urea Nitrogen 46 MG/DL (7-18) 46 MG/DL (7-18) Creatinine 1.09 MG/DL 1.00 MG/DL (0.50-1.00) (0.50-1.00) Estimat Glomerular Filtration 50 ML/MIN (>89) 55 ML/MIN (>89) Rate Random Glucose 142 MG/DL 138 MG/DL (74-106) (74-106) Lactic Acid Level 1.8 mmol/L (0.4-2.0) Calcium Level 9.1 MG/DL 9.0 MG/DL (8.5-10.1) (8.5-10.1) Phosphorus Level 3.3 MG/DL (2.5-4.9) Magnesium Level 2.1 MG/DL (1.5-2.5) Total Bilirubin 0.5 MG/DL 0.7 MG/DL (0.2-1.0) (0.2-1.0) Aspartate Amino Transf 51 U/L (15-37) 49 U/L (15-37) (AST/SGOT) Alanine Aminotransferase 94 U/L (10-53) 87 U/L (10-53) (ALT/SGPT) Alkaline Phosphatase 86 U/L (45-117) 75 U/L (45-117) Total Creatine Kinase 165 U/L (26-192) Creatine Kinase MB LESS THAN 0.5 NG/ML (0.5-3.6) Troponin I LESS THAN 0.02 LESS THAN 0.02 NG/ML NG/ML (0.02-0.05) (0.02-0.05) Total Protein 6.9 GM/DL 6.3 GM/DL (6.4-8.2) (6.4-8.2) Albumin 2.7 GM/DL 2.4 GM/DL (3.4-5.0) (3.4-5.0) Lipase 70 U/L (73-393) White Blood Count 20.6 TH/MM3 16.9 TH/MM3 (4.0-11.0) (4.0-11.0) Red Blood Count 3.43 MIL/MM3 3.29 MIL/MM3 (4.00-5.30) (4.00-5.30) Hemoglobin 10.3 GM/DL 9.5 GM/DL (11.6-15.3) (11.6-15.3) Hematocrit 30.8 % 30.1 % (35.0-46.0) (35.0-46.0) Mean Corpuscular Volume 89.8 FL 91.6 FL (80.0-100.0) (80.0-100.0) Mean Corpuscular Hemoglobin 30.1 PG 29.0 PG (27.0-34.0) (27.0-34.0) Mean Corpuscular Hemoglobin 33.5 % 31.6 % Concent (32.0-36.0) (32.0-36.0) Red Cell Distribution Width 14.7 % 14.7 % (11.6-17.2) (11.6-17.2) Platelet Count 208 TH/MM3 155 TH/MM3 (150-450) (150-450) Mean Platelet Volume 10.1 FL 10.2 FL (7.0-11.0) (7.0-11.0) Neutrophils (%) (Auto) 89.6 % 92.8 % (16.0-70.0) (16.0-70.0) Lymphocytes (%) (Auto) 5.1 % 3.2 % (9.0-44.0) (9.0-44.0) Monocytes (%) (Auto) 5.1 % (0.0-8.0) 3.7 % (0.0-8.0) Eosinophils (%) (Auto) 0.0 % (0.0-4.0) 0.0 % (0.0-4.0) Basophils (%) (Auto) 0.2 % (0.0-2.0) 0.3 % (0.0-2.0) Neutrophils # (Auto) 18.4 TH/MM3 15.7 TH/MM3 (1.8-7.7) (1.8-7.7) Lymphocytes # (Auto) 1.1 TH/MM3 0.5 TH/MM3 (1.0-4.8) (1.0-4.8) Monocytes # (Auto) 1.0 TH/MM3 0.6 TH/MM3 (0-0.9) (0-0.9) Eosinophils # (Auto) 0.0 TH/MM3 0.0 TH/MM3 (0-0.4) (0-0.4) Basophils # (Auto) 0.0 TH/MM3 0.1 TH/MM3 (0-0.2) (0-0.2) CBC Comment DIFF FINAL AUTO DIFF Differential Comment FINAL DIFF MANUAL Urine Color YELLOW (YELLW/STRAW) Urine Turbidity HAZY (CLEAR) Urine pH 5.0 (5.0-8.5) Urine Specific [place] 1.018 (1.002-1.035) Urine Protein TRACE mg/dL (NEG-TRACE) Urine Glucose (UA) NEG mg/dL (NEG) Urine Ketones NEG mg/dL (NEG) Urine Occult Blood LARGE (NEG) Urine Nitrite NEG (NEG) Urine Bilirubin NEG (NEG) Urine Urobilinogen LESS THAN 2.0 MG/DL (LESS THAN 2.0) Urine Leukocyte Esterase LARGE (NEG) Urine RBC 20 /hpf (0-3) Urine WBC 57 /hpf (0-5) Urine WBC Clumps FEW (NONE) Urine Squamous Epithelial 3 /hpf (0-5) Cells Urine Transitional Epithelial 3 /hpf (NONE) Cells Urine Amorphous Sediment RARE Urine Mucus FEW /lpf (OCC) Urine Yeast (Budding) MOD (NONE) Microscopic Urinalysis Comment CATH-CULTURE IND Blood Gas Puncture Site LT RADIAL Blood Gas Patient Temperature 98.6 Blood Gas HCO3 25 mmol/L (22-26) Blood Gas Base Excess 0.5 mmol/L (-2-2) Blood Gas Oxygen Saturation 99 % (90-100) Arterial Blood pH 7.42 (7.380-7.420) Arterial Blood Partial 39 mmHg (38-42) Pressure CO2 Arterial Blood Partial 299 mmHG Pressure O2 (61-120) Arterial Blood Oxygen Content 14.4 Vol % (12.0-20.0) Arterial Blood 0.7 % (0-4) Carboxyhemoglobin Arterial Blood Methemoglobin 0.1 % (0-2) Blood Gas Hemoglobin 9.8 G/DL (12.0-16.0) Oxygen Delivery Device VENTILATOR Blood Gas Ventilator Setting 600 14 5 PEEP Blood Gas Inspired Oxygen 100 % Ammonia 31 MCMOL/L (11-32) Differential Total Cells 100 Counted Neutrophils % (Manual) 82 % (16-70) Band Neutrophils % 13 % (0-6) Lymphocytes % 4 % (9-44) Monocytes % 1 % (0-8) Neutrophils # (Manual) 16.1 TH/MM3 (1.8-7.7) Platelet Estimate NORMAL (NORMAL) Platelet Morphology Comment NORMAL (NORMAL) Test 06/18/16 06/18/16 06/19/16 06/19/16 10:40 21:18 04:43 11:17 Troponin I LESS THAN 0.02 NG/ML (0.02-0.05) Sodium Level 143 MEQ/L 146 MEQ/L (136-145) (136-145) Potassium Level 3.9 MEQ/L 4.1 MEQ/L (3.5-5.1) (3.5-5.1) Chloride Level 109 MEQ/L 112 MEQ/L (98-107) (98-107) Carbon Dioxide Level 25.9 MEQ/L 23.9 MEQ/L (21.0-32.0) (21.0-32.0) Anion Gap 8 MEQ/L (5-15) 10 MEQ/L (5-15) Blood Urea Nitrogen 59 MG/DL (7-18) 57 MG/DL (7-18) Creatinine 0.85 MG/DL 0.80 MG/DL (0.50-1.00) (0.50-1.00) Estimat Glomerular Filtration 66 ML/MIN (>89) 71 ML/MIN (>89) Rate Random Glucose 196 MG/DL 200 MG/DL (74-106) (74-106) Calcium Level 8.9 MG/DL 9.5 MG/DL (8.5-10.1) (8.5-10.1) Total Bilirubin 0.3 MG/DL 0.3 MG/DL (0.2-1.0) (0.2-1.0) Aspartate Amino Transf 64 U/L (15-37) 380 U/L (15-37) (AST/SGOT) Alanine Aminotransferase 99 U/L (10-53) 355 U/L (10-53) (ALT/SGPT) Alkaline Phosphatase 77 U/L (45-117) 99 U/L (45-117) Total Protein 6.2 GM/DL 6.5 GM/DL (6.4-8.2) (6.4-8.2) Albumin 2.3 GM/DL 2.4 GM/DL (3.4-5.0) (3.4-5.0) White Blood Count 13.7 TH/MM3 (4.0-11.0) Red Blood Count 3.48 MIL/MM3 (4.00-5.30) Hemoglobin 10.1 GM/DL (11.6-15.3) Hematocrit 31.7 % (35.0-46.0) Mean Corpuscular Volume 91.2 FL (80.0-100.0) Mean Corpuscular Hemoglobin 29.0 PG (27.0-34.0) Mean Corpuscular Hemoglobin 31.9 % Concent (32.0-36.0) Red Cell Distribution Width 14.9 % (11.6-17.2) Platelet Count 156 TH/MM3 (150-450) Mean Platelet Volume 10.1 FL (7.0-11.0) Neutrophils (%) (Auto) 90.3 % (16.0-70.0) Lymphocytes (%) (Auto) 5.3 % (9.0-44.0) Monocytes (%) (Auto) 4.3 % (0.0-8.0) Eosinophils (%) (Auto) 0.0 % (0.0-4.0) Basophils (%) (Auto) 0.1 % (0.0-2.0) Neutrophils # (Auto) 12.4 TH/MM3 (1.8-7.7) Lymphocytes # (Auto) 0.7 TH/MM3 (1.0-4.8) Monocytes # (Auto) 0.6 TH/MM3 (0-0.9) Eosinophils # (Auto) 0.0 TH/MM3 (0-0.4) Basophils # (Auto) 0.0 TH/MM3 (0-0.2) CBC Comment DIFF FINAL Differential Comment Free Thyroxine 1.01 NG/DL (0.76-1.46) Thyroid Stimulating Hormone 0.221 uIU/ML 3rd Gen (0.358-3.740) Anti-Nuclear Antibody Screen NEG (NEG) Hepatitis A IgM Antibody NEGATIVE (NEGATIVE) Hepatitis B Surface Antigen NEGATIVE (NEGATIVE) Hepatitis B Core IgM Antibody NEGATIVE (NEGATIVE) Hepatitis C Antibody NEGATIVE (NEGATIVE) Test 06/19/16 06/20/16 14:39 09:56 Total Triiodothyronine 37 NG/DL (60-181) White Blood Count 13.3 TH/MM3 (4.0-11.0) Red Blood Count 3.56 MIL/MM3 (4.00-5.30) Hemoglobin 10.9 GM/DL (11.6-15.3) Hematocrit 32.2 % (35.0-46.0) Mean Corpuscular Volume 90.5 FL (80.0-100.0) Mean Corpuscular Hemoglobin 30.6 PG (27.0-34.0) Mean Corpuscular Hemoglobin 33.8 % Concent (32.0-36.0) Red Cell Distribution Width 14.7 % (11.6-17.2) Platelet Count 183 TH/MM3 (150-450) Mean Platelet Volume 9.7 FL (7.0-11.0) Neutrophils (%) (Auto) 85.8 % (16.0-70.0) Lymphocytes (%) (Auto) 8.1 % (9.0-44.0) Monocytes (%) (Auto) 5.8 % (0.0-8.0) Eosinophils (%) (Auto) 0.0 % (0.0-4.0) Basophils (%) (Auto) 0.3 % (0.0-2.0) Neutrophils # (Auto) 11.4 TH/MM3 (1.8-7.7) Lymphocytes # (Auto) 1.1 TH/MM3 (1.0-4.8) Monocytes # (Auto) 0.8 TH/MM3 (0-0.9) Eosinophils # (Auto) 0.0 TH/MM3 (0-0.4) Basophils # (Auto) 0.0 TH/MM3 (0-0.2) CBC Comment AUTO DIFF Differential Total Cells 100 Counted Neutrophils % (Manual) 82 % (16-70) Band Neutrophils % 5 % (0-6) Lymphocytes % 8 % (9-44) Monocytes % 5 % (0-8) Neutrophils # (Manual) 11.6 TH/MM3 (1.8-7.7) Differential Comment FINAL DIFF MANUAL Platelet Estimate NORMAL (NORMAL) Platelet Morphology Comment NORMAL (NORMAL) Red Cell Morphology Comment NORMAL (NORMAL) Sodium Level 144 MEQ/L (136-145) Potassium Level 4.6 MEQ/L (3.5-5.1) Chloride Level 109 MEQ/L (98-107) Carbon Dioxide Level 27.3 MEQ/L (21.0-32.0) Anion Gap 8 MEQ/L (5-15) Blood Urea Nitrogen 38 MG/DL (7-18) Creatinine 0.60 MG/DL (0.50-1.00) Estimat Glomerular Filtration 99 ML/MIN (>89) Rate Random Glucose 134 MG/DL (74-106) Calcium Level 8.6 MG/DL (8.5-10.1) Phosphorus Level 2.3 MG/DL (2.5-4.9) Magnesium Level 2.2 MG/DL (1.5-2.5) Total Bilirubin 0.3 MG/DL (0.2-1.0) Aspartate Amino Transf 200 U/L (15-37) (AST/SGOT) Alanine Aminotransferase 490 U/L (10-53) (ALT/SGPT) Alkaline Phosphatase 103 U/L (45-117) Total Protein 6.3 GM/DL (6.4-8.2) Albumin 2.4 GM/DL (3.4-5.0) Result Diagram: 06/20/16 0956 06/20/16 0956 Microbiology Microbiology Date/Time Procedure Status Source Growth 06/17/16 22:20 Aerobic Blood Culture - Preliminary Resulted Blood Peripheral NO GROWTH IN 3 DAYS 06/17/16 22:20 Anaerobic Blood Culture - Preliminary Resulted Cornyebacterium Not Jk 06/17/16 22:20 Urine Culture - Final Complete Urine Catheterized Urine Latosha Glabrata 06/17/16 22:25 Aerobic Blood Culture - Preliminary Resulted Blood Peripheral NO GROWTH IN 3 DAYS 06/17/16 22:25 Anaerobic Blood Culture - Preliminary Resulted Gram Variable Elvis 06/18/16 15:30 Urine Culture - Final Complete Urine Catheterized Urine NO GROWTH IN 48 HOURS. 06/18/16 15:30 Legionella Antigen - Final Complete Urine Catheterized Urine PRESUMPTIVE NEGATIVE FOR LEGIONELLA P... 06/18/16 15:30 Streptococcus pneumoniae Antigen (M - Final Complete Urine Catheterized Urine PRESUMPTIVE NEGATIVE FOR STREPTOCOCCU... Imaging Last Impressions Abdomen/Pelvis CT 06/19/16 0000 Signed Impressions: Service Date/Time: June 17:46 - CONCLUSION: Right ovarian cyst, uterine fibroid and right lower lobe infiltrate. Shaheen Raygoza MD Chest X-Ray 06/18/16 0000 Signed Impressions: Service Date/Time: Saturday, June 18, 2016 05:42 - CONCLUSION: Repositioning of the endotracheal tube. New basilar consolidations. Paras Saleem Jr., MD Brain MRI 06/18/16 0000 Signed Impressions: Service Date/Time: Saturday, June 18, 2016 16:34 - CONCLUSION: 1. No acute findings. Examination is within normal limits for age. No recent infarct, mass or abnormal enhancement postcontrast. Esteban Jeff MD Head CT 06/17/16 2209 Signed Impressions: Service Date/Time: Saturday, June 18, 2016 03:48 - CONCLUSION: No acute disease. Paras Saleem Jr., MD Procedures * 06/17/16 intubated . Assessment and Plan Disease Oriented Problem List: (1) Respiratory failure (2) Sepsis (3) Pneumonia Symptom Scale: (1) Weakness 0-10 Scale: Unable to quantify (2) Dyspnea 0-10 Scale: Unable to quantify (3) Lethargy 0-10 Scale: Unable to quantify Pertinent Non-Medical Issues Psychosocial: . Spiritual: Unknown. Legal: Notes indicate patient may have written advance directives. Will request copies. Patient is incapacitated to make her own health care decisions. If no written advance directives, according to [place] statutes health care proxy decision-making would fall to the patient's spouse. Ethical issues impacting care: No known concerns at this time. . Important Contacts * Kaleb Busby, spouse: [phone] or [phone] . Prognosis Unable to adequately prognosticate at this time given pending test results. Patient is critically ill in ICU. . Code Status: Full Code Plan * Notes indicate patient may have written advance directives. Will request copies. Patient is incapacitated to make her own health care decisions. If no written advance directives, according to [place] statutes health care proxy decision-making would fall to the patient's spouse. * FULL CODE * Palliative care spoke with daughter at bedside. Medical update provided. Palliative care will continue to follow to assist with communication and clarification of treatment goals as needed. Will provide medical update to family 06/23/16 and continue to follow throughout hospital course to assist with communication, assist with symptom management and clarification of treatment goals as needed. * SYMPTOMS: Dyspnea: on mechanical ventilation. Was emergently intubated on 06/17 due to inability to protect airway. Lethargy: possible secondary to dementia and/or infection vs. other etiology, additional testing pending. Neurology consult pending. Weakness: secondary to infection, repeat hospitalization. Will require ongoing PT. No new medication recommendations at this time. * Palliative care number provided. * Palliative care will continue to follow throughout hospital course to assist with symptom management and clarification of goals as needed. . Time Spent Total Floor Time (mins): 45 Face to Face Time (mins): 35 >50% Counseling/Coord of Care: Yes Attestation To help prompt me to consider important information that might be impacting today's encounter and assessment, information from prior notes written by myself or my colleagues may have been "brought forward" into today's note. My signature on this note, however, is an attestation that I personally performed the exam, history, and/or decision-making noted today, and, unless otherwise indicated, the interactions with patient, family, and staff as well as the review of records all occurred today. I also attest that the listed assessment and stated plan reflect my best clinical judgment today based on the combination of historical information, prior notes, and today's exam/ interactions. When time spent is documented, it refers only to time spent today by the signer, or if indicated, combined time spent today by collaborating physician/nurse practitioner. DANIEL HARMON Jun 20, 2016 18:18
[2016-06-20] MEDS: AZITHROMYCIN INJ 500 MG in SODIUM CHLOR 0.9% 250 ML INJ 250 ML IV SCH (22:09)
--- NOTE | 2016-06-20 22:14 | HHI.IDPN ---
Subjective Subjective Remarks Delayed entry - pt seen earlier today around 1500 no fever minimally responsive growing gram variable elvis in one BC, corynobacteria from antother Antibiotics azithro cefepime vancomycin Past Medical History dementia Allergies: Coded Allergies: Olanzapine (Verified Allergy, Unknown, UNKNOWN, 06/17/16) Objective . Vital Signs Date Time Temp Pulse Resp B/P Pulse Ox O2 Delivery O2 Flow Rate FiO2 06/20/16 22:00 60 06/20/16 20:00 56 06/20/16 20:00 98.7 56 12 122/56 97 06/20/16 20:00 35 06/20/16 19:35 99 35 06/20/16 18:00 53 06/20/16 16:00 40 06/20/16 16:00 99.6 64 15 115/56 100 06/20/16 16:00 64 06/20/16 14:26 99 35 06/20/16 14:00 86 06/20/16 13:00 40 06/20/16 12:00 40 06/20/16 12:00 79 06/20/16 12:00 98.9 79 30 151/67 100 06/20/16 11:52 35 06/20/16 11:15 98 35 06/20/16 10:00 75 06/20/16 08:00 98.9 72 17 143/74 100 06/20/16 08:00 72 06/20/16 08:00 40 06/20/16 07:38 100 35 06/20/16 06:00 82 06/20/16 04:13 100 40 06/20/16 04:00 97.8 79 22 154/81 100 06/20/16 04:00 40 06/20/16 04:00 79 06/20/16 02:00 74 06/20/16 01:20 100 40 06/20/16 00:00 40 06/20/16 00:00 99.0 78 22 135/65 100 06/20/16 00:00 78 06/19/16 22:47 100 40 06/19/16 06/19/16 06/20/16 15:00 23:00 07:00 Intake Total 1114 ml 604 ml 738 ml Output Total 950 ml 450 ml 700 ml Balance 164 ml 154 ml 38 ml Intake Oral 0 ml IV Total 608 ml 403 ml 528 ml Tube Feeding 506 ml 171 ml 180 ml Other 30 ml 30 ml Output Urine Total 950 ml 450 ml 700 ml # Bowel Movements 0 . Laboratory Tests Test 06/19/16 06/20/16 04:43 09:56 White Blood Count 13.7 TH/MM3 13.3 TH/MM3 Red Blood Count 3.48 MIL/MM3 3.56 MIL/MM3 Hemoglobin 10.1 GM/DL 10.9 GM/DL Hematocrit 31.7 % 32.2 % Mean Corpuscular Volume 91.2 FL 90.5 FL Mean Corpuscular Hemoglobin 29.0 PG 30.6 PG Mean Corpuscular Hemoglobin 31.9 % 33.8 % Concent Red Cell Distribution Width 14.9 % 14.7 % Platelet Count 156 TH/MM3 183 TH/MM3 Mean Platelet Volume 10.1 FL 9.7 FL Neutrophils (%) (Auto) 90.3 % 85.8 % Lymphocytes (%) (Auto) 5.3 % 8.1 % Monocytes (%) (Auto) 4.3 % 5.8 % Eosinophils (%) (Auto) 0.0 % 0.0 % Basophils (%) (Auto) 0.1 % 0.3 % Neutrophils # (Auto) 12.4 TH/MM3 11.4 TH/MM3 Lymphocytes # (Auto) 0.7 TH/MM3 1.1 TH/MM3 Monocytes # (Auto) 0.6 TH/MM3 0.8 TH/MM3 Eosinophils # (Auto) 0.0 TH/MM3 0.0 TH/MM3 Basophils # (Auto) 0.0 TH/MM3 0.0 TH/MM3 CBC Comment DIFF FINAL AUTO DIFF Differential Comment FINAL DIFF MANUAL Differential Total Cells 100 Counted Neutrophils % (Manual) 82 % Band Neutrophils % 5 % Lymphocytes % 8 % Monocytes % 5 % Neutrophils # (Manual) 11.6 TH/MM3 Platelet Estimate NORMAL Platelet Morphology Comment NORMAL Red Cell Morphology Comment NORMAL Laboratory Tests Test 06/19/16 06/19/16 06/19/16 06/20/16 04:43 11:17 14:39 09:56 Sodium Level 146 MEQ/L 144 MEQ/L Potassium Level 4.1 MEQ/L 4.6 MEQ/L Chloride Level 112 MEQ/L 109 MEQ/L Carbon Dioxide Level 23.9 MEQ/L 27.3 MEQ/L Anion Gap 10 MEQ/L 8 MEQ/L Blood Urea Nitrogen 57 MG/DL 38 MG/DL Creatinine 0.80 MG/DL 0.60 MG/DL Estimat Glomerular Filtration 71 ML/MIN 99 ML/MIN Rate Random Glucose 200 MG/DL 134 MG/DL Calcium Level 9.5 MG/DL 8.6 MG/DL Total Bilirubin 0.3 MG/DL 0.3 MG/DL Aspartate Amino Transf 380 U/L 200 U/L (AST/SGOT) Alanine Aminotransferase 355 U/L 490 U/L (ALT/SGPT) Alkaline Phosphatase 99 U/L 103 U/L Total Protein 6.5 GM/DL 6.3 GM/DL Albumin 2.4 GM/DL 2.4 GM/DL Free Thyroxine 1.01 NG/DL Thyroid Stimulating Hormone 0.221 uIU/ML 3rd Gen Total Triiodothyronine 37 NG/DL Phosphorus Level 2.3 MG/DL Magnesium Level 2.2 MG/DL Microbiology Date/Time Procedure Status Source Growth 06/17/16 22:20 Aerobic Blood Culture - Preliminary Resulted Blood Peripheral NO GROWTH IN 3 DAYS 06/17/16 22:20 Anaerobic Blood Culture - Preliminary Resulted Cornyebacterium Not Jk 06/17/16 22:20 Urine Culture - Final Complete Urine Catheterized Urine Latosha Glabrata 06/17/16 22:25 Aerobic Blood Culture - Preliminary Resulted Blood Peripheral NO GROWTH IN 3 DAYS 06/17/16 22:25 Anaerobic Blood Culture - Preliminary Resulted Gram Variable Elvis 06/18/16 15:30 Urine Culture - Final Complete Urine Catheterized Urine NO GROWTH IN 48 HOURS. 06/18/16 15:30 Legionella Antigen - Final Complete Urine Catheterized Urine PRESUMPTIVE NEGATIVE FOR LEGIONELLA P... 06/18/16 15:30 Streptococcus pneumoniae Antigen (M - Final Complete Urine Catheterized Urine PRESUMPTIVE NEGATIVE FOR STREPTOCOCCU... Imaging Last Impressions Abdomen/Pelvis CT 06/19/16 0000 Signed Impressions: Service Date/Time: June 17:46 - CONCLUSION: Right ovarian cyst, uterine fibroid and right lower lobe infiltrate. K. Jasbir Raygoza MD Chest X-Ray 06/18/16 0000 Signed Impressions: Service Date/Time: Saturday, June 18, 2016 05:42 - CONCLUSION: Repositioning of the endotracheal tube. New basilar consolidations. Paras Saleem Jr., MD Brain MRI 06/18/16 0000 Signed Impressions: Service Date/Time: Saturday, June 18, 2016 16:34 - CONCLUSION: 1. No acute findings. Examination is within normal limits for age. No recent infarct, mass or abnormal enhancement postcontrast. Esteban Jeff MD Head CT 06/17/161 Signed Impressions: Service Date/Time: Saturday, June 18, 2016 03:48 - CONCLUSION: No acute disease. Paras Saleem Jr., MD Physical Exam CONSTITUTIONAL/GENERAL: This is an obese elderly patient, in no apparent distress. TUBES/LINES/DRAINS: SKIN: No jaundice, rashes, or lesions. Ecchymoses on upper extremities. No wounds seen anteriorly. Skin temperature appropriate. Not diaphoretic. HEAD: Atraumatic. Normocephalic. EYES: Pupils equal and round and reactive. Extraocular motions intact. No scleral icterus. No injection or drainage. Fundi not examined. ENT: Hearing can not be assessed. Nose without bleeding or purulent drainage. Oraly intubated NECK: Trachea midline. somewhat stiff CARDIOVASCULAR: Regular rate and rhythm without murmurs, gallops, or rubs. No JVD. Peripheral pulses symmetric. RESPIRATORY/CHEST: Symmetric, unlabored respirations. Clear to auscultation. Breath sounds equal bilaterally. No wheezes, rales, or rhonchi. GASTROINTESTINAL: Abdomen soft, non-tender (no reaction to palpation), mildly distended. No hepato-splenomegaly, or palpable masses. No guarding. Bowel sounds present. GENITOURINARY: Without palpable bladder distension. Kay catheter in place. MUSCULOSKELETAL: Extremities without clubbing, cyanosis, or edema. No joint tenderness or effusion noted. No mottling or clubbing. LYMPHATICS: No palpable cervical or supraclavicular adenopathy. NEUROLOGICAL: Unresponsive PSYCHIATRIC: unable to assess Assessment & Plan Remarks Fever with MS change plan for LP after holding plavix enough time (on thursday) Undelying dementia UTI ? PNA Acute VDRF Low grade bacteremia 2/2 GPR ? significance Fnguria cont azithro, cefepime, vanco - cont fluconazole Milagros Fountain MD Jun 20, 2016 22:14
--- NOTE | 2016-06-20 22:31 | RADRPT ---
EXAM DATE/TIME: 06/20/2016 16:03 [facility] COMPARISON: CT ABDOMEN & PELVIS W CONTRAST, June 19, 2016, 17:46. INDICATIONS : Increased lab values. MEDICAL HISTORY : Hypertension. Alzheimer's. Hypercholesterolemia. Cerebrovascular accident. Dementia. Dyspnea. Joint p ain. SURGICAL HISTORY : Unable to obtain. ENCOUNTER: Initial ACUITY: 1 day PAIN SCORE: Nonresponsive. LOCATION: Abdomen. MEASUREMENTS: LIVER: 22.2 cm length COMMON DUCT: 3 mm RIGHT KIDNEY: 12.7 x 6.7 x 5.1 cm SPLEEN: 10.2 cm length FINDINGS: LIVER: The liver appears enlarged without focal masses. COMMON DUCT: No intraluminal mass or stone visualized. GALLBLADDER: There is a small 0.4 cm echogenic area at the gallbladder without posterior acoustic shadowing likely related to a polyp. No stone is seen. The gallbladder wall is not thickened. PANCREAS: The visualized portions are within normal limits. RIGHT KIDNEY: No hydronephrosis, stone or solid mass. Cysts are seen measuring up to 1.8 cm. SPLEEN: No focal lesion. OTHER: There is a 2.9 cm minimally complex cyst with a single thin septation seen at the left kidney. The le ft kidney is not fully examined on this ultrasound the liver. CONCLUSION: 1. Hepatomegaly 2. Suspected small gallbladder polyp. 3. Right renal cyst and a minimally complex cyst seen at the left kidney. Tony Carroll MD on June 20, 2016 at 22:25 Board Certified Radiologist. This report was verified electronically.
[2016-06-20] MEDS ORDERED: PHARMACY ORDERED LAB ONE (23:45)
[2016-06-21] VITALS (19 sets, daily range): BP systolic 106–161; BP diastolic 55–72; PULSE 49–105; RESP 12–25; TEMP 98.6–100; O2SAT 95–99
[2016-06-21] MEDS: VANCOMYCIN INJ 1,500 MG in SODIUM CHLORID 0.9% 500 ML INJ 500 ML IV SCH (01:12)
[2016-06-21] MEDS: DOCUSATE SODIUM 100 MG CAP G-TUBE SCH ×2 (02:24→15:00)
[2016-06-21] MEDS: INSULIN NovoLIN REGULAR SUPPLEMENTAL SCALE SQ SCH ×4 (02:25→20:51)
[2016-06-21] MEDS: CHLORHEXIDINE GLUCONATE 2 % 1 PACK (2 CLOTHS) TOP SCH (02:55)
[2016-06-21 04:46] LABS: ALT (GPT) 379 U/L (10-53); ANION GAP 6 MEQ/L (5-15); AST (GOT) 91 U/L (15-37); BICARBONATE 26.1 MEQ/L (21.0-32.0); BLOOD UREA NITROGEN 39 MG/DL (7-18); CHLORIDE 111 MEQ/L (98-107); GLOMERULAR FILTRATION RATE 103 ML/MIN (>89); POTASSIUM 4.6 MEQ/L (3.5-5.1); SODIUM (NA) 143 MEQ/L (136-145)
[2016-06-21 04:49] LABS: AUTOMATED NEUTROPHIL # 9.5 TH/MM3 (1.8-7.7); BASOPHIL % 0.1 % (0.0-2.0); HEMATOCRIT 30.3 % (35.0-46.0); LYMPHOCYTE # 0.9 TH/MM3 (1.0-4.8); MEAN CELL VOLUME 91.9 FL (80.0-100.0); MEAN CORPUSCULAR HEMOGLOBIN 29.3 PG (27.0-34.0); MEAN CORPUSCULAR HGB CONC 31.9 % (32.0-36.0); MONO % 6.3 % (0.0-8.0); NEUT % 85.6 % (16.0-70.0); PLATELET COUNT 174 TH/MM3 (150-450); RED CELL DISTRIBUTION WIDTH 14.8 % (11.6-17.2)
[2016-06-21 04:55] LABS: HEMO FLAGS AUTO DIFF
[2016-06-21 04:56] LABS: ALKALINE PHOSPHATASE 87 U/L (45-117); TOTAL BILIRUBIN ADULT 0.3 MG/DL (0.2-1.0)
[2016-06-21] MEDS: RESP: ALBUTEROL 2.5 MG/3 ML NEB (SCH) NEB ×4 (07:05→19:08)
[2016-06-21] MEDS: levETIRAcetam 1000 MG INJ 100 ML IV SCH ×2 (08:21→20:51)
[2016-06-21] MEDS: CEFEPIME INJ 2,000 MG in SODIUM CHLORIDE 0.9% INJ 100 ML IV SCH ×2 (08:21→14:07)
[2016-06-21] MEDS: MULTIVITAMINS/MINERALS THERAPEUTIC TAB PO SCH (08:22)
[2016-06-21] MEDS: FAMOTIDINE 20 MG/2 ML VIAL IV PUSH SCH ×2 (08:22→20:51)
[2016-06-21] MEDS: LISINOPRIL 20 MG TAB PO SCH (08:22)
[2016-06-21] MEDS: BENEPROTEIN POWDER 1 PACK G-TUBE SCH ×3 (08:50→17:34)
[2016-06-21 08:56] LABS: BANDS 10 % (0-6); METAMYELOCYTES 1 % (0-1); NEUTROPHIL # MANUAL DIFF 10.1 TH/MM3 (1.8-7.7); POLYS (SEG NEUTROPHILS) 81 % (16-70); WBC DIFF SAMPLE 100
[2016-06-21 08:57] LABS: PLATELET ESTIMATE SMEAR NORMAL (NORMAL); PLATELET MORPHOLOGY NORMAL (NORMAL); SCAN/DIFF FINAL DIFF MANUAL
[2016-06-21] MEDS: SODIUM CHLORIDE 0.9% FLUSH 10 ML FLUSH SCH ×2 (08:57→20:51)
[2016-06-21] MEDS: ARTIFICIAL TEARS OPTH SOLN 15 ML BTL EACH EYE SCH ×3 (09:00→17:34)
[2016-06-21] MEDS ORDERED: PHARMACY ORDERED LAB ONE (11:45)
--- NOTE | 2016-06-21 13:25 | HHI.IDPN ---
Subjective Subjective [facility] 70 y/[facility] CF with dementia, hypertension and coronary artery disease presented to [facility] emergency department via EMS on 06/17/16 from senior living with worsening lethargy, decreased mental status and with respiratory distress. She reportedly "aspirated over the weekend" per EMS. Patient was nonverbal upon arrival.She was emergently intubated for airway protection. Overnight events reviewed. Remains intubated. Sedated not much neuro response. no fever BCX with Corynebacterium not jk likely contamination. UO Ok. Not on pressors. Full code. Not much secretions but RN reports a mucus plug during suctioning this am. No rash No diarrhea Antibiotics azithro cefepime vancomycin Lines Line sites with no e.o infection Past Medical History dementia Allergies: Coded Allergies: Olanzapine (Verified Allergy, Unknown, UNKNOWN, 06/17/16) Objective . Vital Signs Date Time Temp Pulse Resp B/P Pulse Ox O2 Delivery O2 Flow Rate FiO2 06/21/16 13:04 95 35 06/21/16 12:00 35 06/21/16 12:00 105 06/21/16 12:00 100.0 105 18 134/65 96 06/21/16 10:05 97 35 06/21/16 10:05 35 06/21/16 08:00 100.0 98 18 152/70 98 06/21/16 08:00 96 06/21/16 08:00 35 06/21/16 07:05 99 35 06/21/16 06:00 50 06/21/16 04:03 98 35 06/21/16 04:00 51 06/21/16 04:00 35 06/21/16 04:00 98.7 51 12 113/59 98 06/21/16 02:00 49 06/21/16 01:05 98 35 06/21/16 00:00 99.3 54 12 106/55 98 06/21/16 00:00 54 06/21/16 00:00 35 06/20/16 22:33 99 35 06/20/16 22:00 60 06/20/16 20:00 56 06/20/16 20:00 98.7 56 12 122/56 97 06/20/16 20:00 35 06/20/16 19:35 99 35 06/20/16 18:00 53 06/20/16 16:00 40 06/20/16 16:00 99.6 64 15 115/56 100 06/20/16 16:00 64 06/20/16 14:26 99 35 06/20/16 14:00 86 06/20/16 06/20/16 06/21/16 15:00 23:00 07:00 Intake Total 1480 ml 1010 ml 1571 ml Output Total 800 ml 300 ml 500 ml Balance 680 ml 710 ml 1071 ml IV Total 1243 ml 668 ml 1128 ml Tube Feeding 177 ml 312 ml 413 ml Other 60 ml 30 ml 30 ml Output Urine Total 800 ml 300 ml 500 ml Tube Feeding Residual Discard 0 ml # Bowel Movements 0 . Laboratory Tests Test 06/20/16 06/21/16 09:56 03:34 White Blood Count 13.3 TH/MM3 11.0 TH/MM3 Red Blood Count 3.56 MIL/MM3 3.30 MIL/MM3 Hemoglobin 10.9 GM/DL 9.7 GM/DL Hematocrit 32.2 % 30.3 % Mean Corpuscular Volume 90.5 FL 91.9 FL Mean Corpuscular Hemoglobin 30.6 PG 29.3 PG Mean Corpuscular Hemoglobin 33.8 % 31.9 % Concent Red Cell Distribution Width 14.7 % 14.8 % Platelet Count 183 TH/MM3 174 TH/MM3 Mean Platelet Volume 9.7 FL 9.8 FL Neutrophils (%) (Auto) 85.8 % 85.6 % Lymphocytes (%) (Auto) 8.1 % 8.0 % Monocytes (%) (Auto) 5.8 % 6.3 % Eosinophils (%) (Auto) 0.0 % 0.0 % Basophils (%) (Auto) 0.3 % 0.1 % Neutrophils # (Auto) 11.4 TH/MM3 9.5 TH/MM3 Lymphocytes # (Auto) 1.1 TH/MM3 0.9 TH/MM3 Monocytes # (Auto) 0.8 TH/MM3 0.7 TH/MM3 Eosinophils # (Auto) 0.0 TH/MM3 0.0 TH/MM3 Basophils # (Auto) 0.0 TH/MM3 0.0 TH/MM3 CBC Comment AUTO DIFF AUTO DIFF Differential Total Cells 100 100 Counted Neutrophils % (Manual) 82 % 81 % Band Neutrophils % 5 % 10 % Lymphocytes % 8 % 5 % Monocytes % 5 % 3 % Neutrophils # (Manual) 11.6 TH/MM3 10.1 TH/MM3 Differential Comment FINAL DIFF FINAL DIFF MANUAL MANUAL Platelet Estimate NORMAL NORMAL Platelet Morphology Comment NORMAL NORMAL Red Cell Morphology Comment NORMAL Metamyelocytes 1 % Laboratory Tests Test 06/19/16 06/20/16 06/21/16 14:39 09:56 03:34 Total Triiodothyronine 37 NG/DL Sodium Level 144 MEQ/L 143 MEQ/L Potassium Level 4.6 MEQ/L 4.6 MEQ/L Chloride Level 109 MEQ/L 111 MEQ/L Carbon Dioxide Level 27.3 MEQ/L 26.1 MEQ/L Anion Gap 8 MEQ/L 6 MEQ/L Blood Urea Nitrogen 38 MG/DL 39 MG/DL Creatinine 0.60 MG/DL 0.58 MG/DL Estimat Glomerular Filtration 99 ML/MIN 103 ML/MIN Rate Random Glucose 134 MG/DL 205 MG/DL Calcium Level 8.6 MG/DL 8.4 MG/DL Phosphorus Level 2.3 MG/DL Magnesium Level 2.2 MG/DL Total Bilirubin 0.3 MG/DL 0.3 MG/DL Aspartate Amino Transf 200 U/L 91 U/L (AST/SGOT) Alanine Aminotransferase 490 U/L 379 U/L (ALT/SGPT) Alkaline Phosphatase 103 U/L 87 U/L Total Protein 6.3 GM/DL 5.8 GM/DL Albumin 2.4 GM/DL 2.2 GM/DL Microbiology Date/Time Procedure Status Source Growth 06/18/16 15:30 Urine Culture - Final Complete Urine Catheterized Urine NO GROWTH IN 48 HOURS. 06/18/16 15:30 Legionella Antigen - Final Complete Urine Catheterized Urine PRESUMPTIVE NEGATIVE FOR LEGIONELLA P... 06/18/16 15:30 Streptococcus pneumoniae Antigen (M - Final Complete Urine Catheterized Urine PRESUMPTIVE NEGATIVE FOR STREPTOCOCCU... Imaging Last Impressions Abdomen/Pelvis CT 06/19/16 0000 Signed Impressions: Service Date/Time: June 17:46 - CONCLUSION: Right ovarian cyst, uterine fibroid and right lower lobe infiltrate. Shaheen Raygoza MD Chest X-Ray 06/18/16 0000 Signed Impressions: Service Date/Time: Saturday, June 18, 2016 05:42 - CONCLUSION: Repositioning of the endotracheal tube. New basilar consolidations. Paras Saleem Jr., MD Brain MRI 06/18/16 0000 Signed Impressions: Service Date/Time: Saturday, June 18, 2016 16:34 - CONCLUSION: 1. No acute findings. Examination is within normal limits for age. No recent infarct, mass or abnormal enhancement postcontrast. Esteban Jeff MD Head CT 06/17/16 2209 Signed Impressions: Service Date/Time: Saturday, June 18, 2016 03:48 - CONCLUSION: No acute disease. Paras Saleem Jr., MD Physical Exam CONSTITUTIONAL/GENERAL: This is an obese elderly patient, in no apparent distress. TUBES/LINES/DRAINS: SKIN: No jaundice, rashes, or lesions. Ecchymoses on upper extremities. No wounds seen anteriorly. Skin temperature appropriate. Not diaphoretic. HEAD: Atraumatic. Normocephalic. EYES: Pupils equal and round and reactive. Extraocular motions intact. No scleral icterus. No injection or drainage. Fundi not examined. ENT: Hearing can not be assessed. Nose without bleeding or purulent drainage. Oraly intubated NECK: Trachea midline. somewhat stiff CARDIOVASCULAR: Regular rate and rhythm without murmurs, gallops, or rubs. No JVD. Peripheral pulses symmetric. RESPIRATORY/CHEST: Symmetric, unlabored respirations. Clear to auscultation. Breath sounds equal bilaterally. No wheezes, rales, or rhonchi. GASTROINTESTINAL: Abdomen soft, non-tender (no reaction to palpation), mildly distended. No hepato-splenomegaly, or palpable masses. No guarding. Bowel sounds present. GENITOURINARY: Without palpable bladder distension. Kay catheter in place. MUSCULOSKELETAL: Extremities without clubbing, cyanosis, or edema. No joint tenderness or effusion noted. No mottling or clubbing. LYMPHATICS: No palpable cervical or supraclavicular adenopathy. NEUROLOGICAL: Unresponsive PSYCHIATRIC: unable to assess Assessment & Plan Remarks Sepsis present on admission (fever, tachycardia, WBC 20K on admission) Acute metabolic encephalopathy: sepsis, ? meningitis , ? seizure related. plans on LP on Thursday. Aspiration pneumonia prior to admission. Underlying dementia UTI Acute VDRF Low grade bacteremia 2/2 GPR ? significance Funguria Recs: Continue Azithro IV Continue Cefepime IV Continue Vanco IV (for meningitis). Corynebacterium JK likely contaminant as no foreign body infection. Continue fluconazole IV for now. Fevers likely drug fever from Vanco IV or Keppra IV which is for possible [employer] infection. Will continue and follow clinically. EEG abnormal with seizure foci. LP planned on Thursday per . Will follow prn over the weekend. to resume care on Thursday. If any changes in the interim please call sooner. Mery Poole MD Jun 21, 2016 13:25
[2016-06-21] MEDS: FLUCONAZOLE/NACL 400 MG/200 ML IV SCH (14:06)
[2016-06-21] MEDS: methylPREDNISolone SOD SUCC 40 MG/1 ML VIAL IV SCH (14:06)
[2016-06-21] MEDS: SODIUM CHLOR 0.9% 1000 ML INJ 1,000 ML IV SCH (14:09)
--- NOTE | 2016-06-21 16:26 | HHI.CCPN ---
Subjective Remarks/Hospital Course 06/18: 70-year-old unfortunate female fdc resident due to lack of capacity to live independently due to progressively worsening dementia. Patient was progressively getting more lethargic within last few days. She was also noted to be febrile. Per daughter patient baseline is between" sometimes she talks but doesn't make any sense" but sometimes just mumbles. She has also had some decreased by mouth intake. She was found more lethargic almost unresponsive and was transferred to emergency department. In the ED she was found not to be able to protect her airways and was intubated by ER attending. She was admitted to the ICU. 06/19: Patient remains sedated and mechanically ventilated. RASS score of -2. No acute events overnight. Tmax overnight of 100.2F. Review of records from [facility] admission on 05/06/16 patient was admitted due to fevers, rigors, dysuria however urine culture was negative. Blood cultures obtained during that admission were found to be intermittently positive however organisms were all different including staph epi and staph hominis and thought to be contaminants. CXR and head CT were negative. Flu A/B ags were negative. It was noted that the patient had been taking Zyprexa and that medication has been discontinued due to possible neuroleptic-related fever. Patient had also been taking Haldol prn as well as Effexor. Echocardiogram was negative no vegetations. 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 Pt also had elevated LFTs during that admission which trended down and biliary scan was negative. 06/20 Patient is intubated and sedated with Diprivan. Afebrile for LP today. 06/21 Tmax 99.6. Leukocytosis resolving. Liver enzymes are decreasing. The patient remains intubated and CPAP trials thus far unsuccessful. Objective Vital Signs Date Time Temp Pulse Resp B/P Pulse Ox O2 Delivery O2 Flow Rate FiO2 06/21/16 14:00 102 06/21/16 13:04 95 35 06/21/16 12:00 100.0 18 134/65 06/18/16 03:00 Ventilator 06/17/16 23:20 15 Intake and Output 06/20/16 06/20/1617 08:00 16:00 00:00 Intake Total 738 ml 1480 ml 1010 ml Output Total 700.0 ml 800 ml 300 ml Balance 38.0 ml 680 ml 710 ml Result Diagram: 06/21/16 0334 06/21/16 0334 Imaging Last Impressions Abdomen/Pelvis CT 06/19/16 0000 Signed Impressions: Service Date/Time: June 17:46 - CONCLUSION: Right ovarian cyst, uterine fibroid and right lower lobe infiltrate. Shaheen Raygoza MD Chest X-Ray 06/18/16 0000 Signed Impressions: Service Date/Time: Saturday, June 18, 2016 05:42 - CONCLUSION: Repositioning of the endotracheal tube. New basilar consolidations. Paras Saleem Jr., MD Brain MRI 06/18/16 0000 Signed Impressions: Service Date/Time: Saturday, June 18, 2016 16:34 - CONCLUSION: 1. No acute findings. Examination is within normal limits for age. No recent infarct, mass or abnormal enhancement postcontrast. Esteban Jeff MD Head CT 06/17/162208 Signed Impressions: Service Date/Time: Saturday, June 18, 2016 03:48 - CONCLUSION: No acute disease. Paras Saleem Jr., MD Objective Remarks GENERAL: Well-nourished, well-developed patient. Sedated and intubated SKIN: Warm and dry. HEAD: Normocephalic. EYES: No scleral icterus. No injection or drainage. NECK: Supple, trachea midline. No JVD or lymphadenopathy. CARDIOVASCULAR: Regular rate and rhythm without murmurs, gallops, or rubs. RESPIRATORY: Breath sounds equal bilaterally. No accessory muscle use. GASTROINTESTINAL: Abdomen soft, non-tender, nondistended. MUSCULOSKELETAL: No cyanosis, or edema. Neuro: Sedated, unresponsive. A/P Assessment and Plan NEURO: AMS History of dementia Delirium - On Fentanyl infusion for sedation, daily sedation vacation - Neuro consulted- Dr. Price -EEG showed mod slowing with sharp waves which could be focus for seizures Continue with Keppra -For LP per ID Dr. Fountain RESP: Respiratory failure, now mechanically ventilated RLL infiltrate - Continue with vent support keep sat > 92% - ICU vent bundle, Bronchodilators-scheduled - SBT trials as kelsi. -Maintain head of bed elevation 30 CV: Hypertension -Monitor HR and BP keep MAP>65mmHg -On Lisinopril 40mg daily GI: -Elevated LFT's. - Continue tube feeds with Jevity 1.5 lina at goal of 60 cc/hr - Continue Colace for bowel regimen -CT abdomen/pelvis: Right ovarian cyst, uterine fibroid and right lower lobe infiltrate. Normal liver : -Monitor renal function, I/O's, electrolytes replacement per protocol. -Place on NS@75ml/hr HEME: Chronic Anemia, stable - Monitor CBC ID: Sepsis Funguria RLL infiltrate Leukocytosis - 06/17 BC: Pleomorphic GP rods 03/19 bottles- Liley contaminant - 06/17 UCx growing yeast, pneumococcal legionella presumptive negatives -Continue with abx per ID (On vancomycin (06/18 -), cefepime (06/18 -), azithromycin (06/17 -), Diflucan (06/18 -) -For LP per ID ENDO: - Continue accuchecks - Novolin (low dose) SS - TSH ordered PROPH: DVT PPX: TEDs, hold subq Lovenox for possibility of pending LP GI PPX: Pepcid This patient remains critically ill with one or more organ systems which are or may become a threat to life. I have spent in excess of 32 minutes discontinuously in the care and management of this patient. This time is exclusive of procedures, and includes, but is not limited to, evaluation of the patient, review of the medical record, discussions with family, consultants, nursing staff, or respiratory therapy, and documentation in the medical record. Physician Monica Maxwell MD Jun 21, 2016 16:26
[2016-06-21] MEDS: VANCOMYCIN INJ 1,750 MG in SODIUM CHLORID 0.9% 500 ML INJ 500 ML IV SCH (17:30)
[2016-06-22] VITALS (19 sets, daily range): BP systolic 134–167; BP diastolic 70–76; PULSE 80–102; RESP 16–17; TEMP 99–99.9; O2SAT 97–100
[2016-06-22] MEDS: CEFEPIME INJ 2,000 MG in SODIUM CHLORIDE 0.9% INJ 100 ML IV SCH ×3 (00:04→15:15)
[2016-06-22] MEDS: AZITHROMYCIN INJ 500 MG in SODIUM CHLOR 0.9% 250 ML INJ 250 ML IV SCH ×2 (00:04→21:00)
[2016-06-22] MEDS: methylPREDNISolone SOD SUCC 40 MG/1 ML VIAL IV SCH ×2 (00:05→15:15)
[2016-06-22] MEDS: INSULIN NovoLIN REGULAR SUPPLEMENTAL SCALE SQ SCH ×4 (03:00→20:59)
[2016-06-22] MEDS: CHLORHEXIDINE GLUCONATE 2 % 1 PACK (2 CLOTHS) TOP SCH (04:00)
[2016-06-22] MEDS: SODIUM CHLOR 0.9% 1000 ML INJ 1,000 ML IV SCH ×2 (04:04→14:50)
[2016-06-22] MEDS: DOCUSATE SODIUM 100 MG CAP G-TUBE SCH ×2 (04:04→15:00)
[2016-06-22 05:18] LABS: HEMATOCRIT 34.1 % (35.0-46.0); MEAN CELL VOLUME 89.4 FL (80.0-100.0); MEAN CORPUSCULAR HEMOGLOBIN 29.9 PG (27.0-34.0); MEAN CORPUSCULAR HGB CONC 33.4 % (32.0-36.0); PLATELET COUNT 203 TH/MM3 (150-450); RED BLOOD COUNT 3.82 MIL/MM3 (4.00-5.30); RED CELL DISTRIBUTION WIDTH 14.8 % (11.6-17.2); REVIEW FLAG FINAL; WHITE BLOOD COUNT 20.6 TH/MM3 (4.0-11.0)
[2016-06-22 05:31] LABS: BICARBONATE 28.8 MEQ/L (21.0-32.0); MAGNESIUM 1.9 MG/DL (1.5-2.5); POTASSIUM 4.5 MEQ/L (3.5-5.1)
--- NOTE | 2016-06-22 06:35 | RADRPT ---
EXAM DATE/TIME: 06/22/2016 05:16 [facility] COMPARISON: CHEST SINGLE AP, June 18, 2016, 5:42. INDICATIONS : Shortness of breath, possible pulmonary disease. MEDICAL HISTORY : Hypertension. Hypercholesterolemia. Cerebrovascular disease. Dementia SURGICAL HISTORY : None. ENCOUNTER: Subsequent ACUITY: 3 days PAIN SCORE: Non-responsive. LOCATION: Bilateral chest FINDINGS: ET tube and NG tube are well placed. The heart size is normal. There is increased density at the medi al right base. The aeration at the right base is clearly improved from the prior exam. The left lung is clear. CONCLUSION: Improving right base consolidation or atelectasis. Tony Carroll MD on June 22, 2016 at 6:33 Board Certified Radiologist. This report was verified electronically.
[2016-06-22] MEDS: RESP: ALBUTEROL 2.5 MG/3 ML NEB (SCH) NEB ×4 (07:21→19:37)
--- NOTE | 2016-06-22 07:50 | HHI.CCPN ---
Subjective Remarks/Hospital Course 06/18: 70-year-old unfortunate female [facility] resident due to lack of capacity to live independently due to progressively worsening dementia. Patient was progressively getting more lethargic within last few days. She was also noted to be febrile. Per daughter patient baseline is between" sometimes she talks but doesn't make any sense" but sometimes just mumbles. She has also had some decreased by mouth intake. She was found more lethargic almost unresponsive and was transferred to emergency department. In the ED she was found not to be able to protect her airways and was intubated by ER attending. She was admitted to the ICU. 06/19: Patient remains sedated and mechanically ventilated. RASS score of -2. No acute events overnight. Tmax overnight of 100.2F. Review of records from [facility] admission on 05/06/16 patient was admitted due to fevers, rigors, dysuria however urine culture was negative. Blood cultures obtained during that admission were found to be intermittently positive however organisms were all different including staph epi and staph hominis and thought to be contaminants. CXR and head CT were negative. Flu A/B ags were negative. It was noted that the patient had been taking Zyprexa and that medication has been discontinued due to possible neuroleptic-related fever. Patient had also been taking Haldol prn as well as Effexor. Echocardiogram was negative no vegetations. 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 Pt also had elevated LFTs during that admission which trended down and biliary scan was negative. 06/20 Patient is intubated and sedated with Diprivan. Afebrile for LP today. 06/21 Tmax 99.6. Leukocytosis resolving. Liver enzymes are decreasing. The patient remains intubated and CPAP trials thus far unsuccessful. 06/22 Tmax 99.3. No change in neuro status. Patient was maintained on CPAP for approximately 12 hours yesterday. The patient white blood cell count has noted elevation today, will obtain venous Doppler ultrasound bilateral extremities to rule out thrombus. The patient continues on antibiotics per ID recommendations. Objective Vital Signs Date Time Temp Pulse Resp B/P Pulse Ox O2 Delivery O2 Flow Rate FiO2 06/22/16 07:21 98 35 06/22/16 06:00 97 06/22/16 04:00 99.3 16 167/76 Intake and Output 06/21/16 06/21/16 06/22/16 08:00 16:00 00:00 Intake Total 1571 ml 1535 ml 1874 ml Output Total 500 ml 800 ml 2125 ml Balance 1071 ml 735 ml -251 ml Result Diagram: 06/22/16 0412 06/22/16 0412 Imaging Last Impressions Abdomen/Pelvis CT 06/19/16 0000 Signed Impressions: Service Date/Time: June 17:46 - CONCLUSION: Right ovarian cyst, uterine fibroid and right lower lobe infiltrate. Shaheen Raygoza MD Chest X-Ray 06/18/16 0000 Signed Impressions: Service Date/Time: Saturday, June 18, 2016 05:42 - CONCLUSION: Repositioning of the endotracheal tube. New basilar consolidations. Paras Saleem Jr., MD Brain MRI 06/18/16 0000 Signed Impressions: Service Date/Time: Saturday, June 18, 2016 16:34 - CONCLUSION: 1. No acute findings. Examination is within normal limits for age. No recent infarct, mass or abnormal enhancement postcontrast. Esteban Jeff MD Head CT [id number]/17/[id number] Signed Impressions: Service Date/Time: Saturday, June 18, 2016 03:48 - CONCLUSION: No acute disease. Paras Saleem Jr., MD Objective Remarks GENERAL: Well-nourished, well-developed patient. Sedated and intubated SKIN: Warm and dry. HEAD: Normocephalic. EYES: No scleral icterus. No injection or drainage. NECK: Supple, trachea midline. No JVD or lymphadenopathy. CARDIOVASCULAR: Regular rate and rhythm without murmurs, gallops, or rubs. RESPIRATORY: Breath sounds equal bilaterally. No accessory muscle use. GASTROINTESTINAL: Abdomen soft, non-tender, nondistended. MUSCULOSKELETAL: No cyanosis, or edema. Multiple contractures noted. Neuro: Sedated, unresponsive. Urinary Catheter: Yes Kay insert reason: Measure Accurate Output A/P Assessment and Plan NEURO: AMS History of dementia Delirium - On Fentanyl infusion for sedation, daily sedation vacation -Discontinue fentanyl infusion while on CPAP trials - Neuro consulted- Dr. Ossi -EEG showed mod slowing with sharp waves which could be focus for seizures Continue with Keppra -For LP per ID Dr. Fountain RESP: Respiratory failure, now mechanically ventilated RLL infiltrate - Continue with vent support keep sat > 92% - ICU vent bundle, Bronchodilators-scheduled - SBT trials as kelsi., Currently on CPAP 02/17, FiO2 35% -Maintain head of bed elevation 30 -Chest x-ray 06/22 improving right base consolidation or atelectasis CV: Hypertension -Monitor HR and BP keep MAP>65mmHg -On Lisinopril 40mg daily GI: -Elevated LFT's. - Continue tube feeds with Jevity 1.5 lina at goal of 60 cc/hr, minimal residuals - Continue Colace for bowel regimen. Last BM or/11/02/16 -CT abdomen/pelvis: Right ovarian cyst, uterine fibroid and right lower lobe infiltrate. Normal liver : -Monitor renal function, I/O's, electrolytes replacement per protocol. -Place on NS@75ml/hr HEME: Chronic Anemia, stable - Monitor CBC ID: Sepsis Funguria RLL infiltrate Leukocytosis - 06/17 BC: Pleomorphic GP rods 03/19 bottles- Likely contaminant - 06/17 UCx growing yeast, pneumococcal legionella negative -Continue with abx per ID (On vancomycin (06/18 -), cefepime (06/18 -), azithromycin (06/17 -), Diflucan (06/18 -) -WBC 11->20 today -For LP per ID ENDO: - Continue accuchecks - Novolin (low dose) SS - TSH 0.221 PROPH: DVT PPX: TEDs, hold subq Lovenox for possibility of pending LP GI PPX: Pepcid This patient remains critically ill with one or more organ systems which are or may become a threat to life. I have spent in excess of 30 minutes discontinuously in the care and management of this patient. This time is exclusive of procedures, and includes, but is not limited to, evaluation of the patient, review of the medical record, discussions with family, consultants, nursing staff, or respiratory therapy, and documentation in the medical record. Physician Monica Maxwell MD Jun 22, 2016 07:50
[2016-06-22] MEDS: MULTIVITAMINS/MINERALS THERAPEUTIC TAB PO SCH (08:19)
[2016-06-22] MEDS: FAMOTIDINE 20 MG/2 ML VIAL IV PUSH SCH ×2 (08:19→20:59)
[2016-06-22] MEDS: LISINOPRIL 20 MG TAB PO SCH (08:20)
[2016-06-22] MEDS: levETIRAcetam 1000 MG INJ 100 ML IV SCH ×2 (08:20→20:59)
[2016-06-22] MEDS: BENEPROTEIN POWDER 1 PACK G-TUBE SCH ×3 (08:20→18:00)
[2016-06-22] MEDS: ARTIFICIAL TEARS OPTH SOLN 15 ML BTL EACH EYE SCH ×3 (08:20→18:00)
[2016-06-22] MEDS: SODIUM CHLORIDE 0.9% FLUSH 10 ML FLUSH SCH ×2 (08:20→20:59)
[2016-06-22] MEDS: VANCOMYCIN INJ 1,750 MG in SODIUM CHLORID 0.9% 500 ML INJ 500 ML IV SCH (12:00)
--- NOTE | 2016-06-22 12:33 | RADRPT ---
EXAM DATE/TIME: 06/22/2016 10:44 [facility] COMPARISON: No previous studies available for comparison. INDICATIONS : Bilateral leg swelling. MEDICAL HISTORY : Hypercholesterolemia. Hypertension. CVA. Dementia. Alzheimer's disease. dyspnea. coronary artery dis ease. SURGICAL HISTORY : Unable to obtain. ENCOUNTER: Initial ACUITY: 1 day PAIN SCORE: Non-responsive LOCATION: Bilateral legs. TECHNIQUE: Venous ultrasound of the left and right leg was performed from the inguinal ligament to the proximal calf. Real-time, color Doppler and spectral tracing, compression and augmentation techniques were us ed. FINDINGS: RIGHT LEG: There is normal compressibility of the deep venous system from the inguinal region to the proximal ca lf. No echogenic clot is seen in the lumen of the common femoral, femoral, popliteal, and posterior tibial veins. There is a normal response of the venous system to proximal and distal augmentation an d respiration. LEFT LEG: There is normal compressibility of the deep venous system from the inguinal region to the proximal ca lf. No echogenic clot is seen in the lumen of the common femoral, femoral, popliteal, and posterior tibial veins. There is a normal response of the venous system to proximal and distal augmentation an d respiration. CONCLUSION: Normal examination. Mary Thomas MD on June 22, 2016 at 12:31 Board Certified Radiologist. This report was verified electronically.
--- NOTE | 2016-06-22 12:44 | RADRPT ---
EXAM DATE/TIME: 06/22/2016 11:01 [facility] COMPARISON: No previous studies available for comparison. INDICATIONS : Bilateral arm swelling. MEDICAL HISTORY : Hypercholesterolemia. Hypertension. CVA. Dementia. Alzheimer's disease. dyspnea. coronary artery dis ease. SURGICAL HISTORY : Unable to obtain. ENCOUNTER: Initial ACUITY: 1 day PAIN SCORE: Non-responsive LOCATION: Bilateral arms. FINDINGS: RIGHT UPPER EXTREMITY: There is spontaneous flow documented in the brachial, basilic, cephalic, axillary, and subclavian vei ns. The vessels are compressible and augmentation response is documented. No filling defects are se en. The flow is phasic with respiration. Direction of flow in the jugular vein is caudal. LEFT UPPER EXTREMITY: There is spontaneous flow documented in the brachial, basilic, cephalic, axillary, and subclavian vei ns. The vessels are compressible and augmentation response is documented. No filling defects are se en. The flow is phasic with respiration. Direction of flow in the jugular vein is caudal. CONCLUSION: Normal examination. Mary Thomas MD on June 22, 2016 at 12:42 Board Certified Radiologist. This report was verified electronically.
[2016-06-22] MEDS: FLUCONAZOLE/NACL 400 MG/200 ML IV SCH (15:15)
[2016-06-23] VITALS (19 sets, daily range): BP systolic 134–168; BP diastolic 64–78; PULSE 59–75; RESP 17–23; TEMP 98.7–99.5; O2SAT 99–100
[2016-06-23] MEDS: methylPREDNISolone SOD SUCC 40 MG/1 ML VIAL IV SCH ×2 (00:20→11:34)
[2016-06-23] MEDS: CEFEPIME INJ 2,000 MG in SODIUM CHLORIDE 0.9% INJ 100 ML IV SCH ×3 (00:21→18:46)
[2016-06-23] MEDS: DOCUSATE SODIUM 100 MG CAP G-TUBE SCH ×2 (03:00→15:00)
[2016-06-23] MEDS: INSULIN NovoLIN REGULAR SUPPLEMENTAL SCALE SQ SCH ×3 (03:00→15:00)
[2016-06-23] MEDS: CHLORHEXIDINE GLUCONATE 2 % 1 PACK (2 CLOTHS) TOP SCH (04:00)
[2016-06-23 04:48] LABS: AUTOMATED NEUTROPHIL # 21.4 TH/MM3 (1.8-7.7); BASOPHIL % 0.2 % (0.0-2.0); HEMATOCRIT 34.4 % (35.0-46.0); LYMPH % 4.2 % (9.0-44.0); MEAN CELL VOLUME 89.5 FL (80.0-100.0); MEAN CORPUSCULAR HEMOGLOBIN 30.1 PG (27.0-34.0); MEAN CORPUSCULAR HGB CONC 33.6 % (32.0-36.0); MONO % 2.7 % (0.0-8.0); NEUT % 92.9 % (16.0-70.0); PLATELET COUNT 202 TH/MM3 (150-450); RED BLOOD COUNT 3.84 MIL/MM3 (4.00-5.30); RED CELL DISTRIBUTION WIDTH 14.5 % (11.6-17.2)
[2016-06-23 04:55] LABS: HEMO FLAGS AUTO DIFF
[2016-06-23] MEDS: VANCOMYCIN INJ 1,750 MG in SODIUM CHLORID 0.9% 500 ML INJ 500 ML IV SCH (05:13)
[2016-06-23] MEDS: SODIUM CHLOR 0.9% 1000 ML INJ 1,000 ML IV SCH ×2 (05:13→21:16)
[2016-06-23 05:16] LABS: BICARBONATE 29.6 MEQ/L (21.0-32.0); MAGNESIUM 1.9 MG/DL (1.5-2.5); POTASSIUM 4.2 MEQ/L (3.5-5.1)
[2016-06-23 07:42] LABS: BANDS 6 % (0-6); NEUTROPHIL # MANUAL DIFF 20.5 TH/MM3 (1.8-7.7); POLYS (SEG NEUTROPHILS) 83 % (16-70); WBC DIFF SAMPLE 100
[2016-06-23 07:43] LABS: PLATELET ESTIMATE SMEAR NORMAL (NORMAL); PLATELET MORPHOLOGY NORMAL (NORMAL); SCAN/DIFF FINAL DIFF MANUAL
[2016-06-23] MEDS: RESP: ALBUTEROL 2.5 MG/IPRATROPIUM 0.5 MG NEB (PRN) INH (08:04)
[2016-06-23] MEDS: RESP: ALBUTEROL 2.5 MG/3 ML NEB (SCH) NEB ×4 (08:05→19:27)
[2016-06-23] MEDS: SODIUM CHLORIDE 0.9% FLUSH 10 ML FLUSH SCH ×2 (08:17→21:00)
[2016-06-23] MEDS: LISINOPRIL 20 MG TAB PO SCH (08:18)
[2016-06-23] MEDS: FAMOTIDINE 20 MG/2 ML VIAL IV PUSH SCH (08:18)
[2016-06-23] MEDS: MULTIVITAMINS/MINERALS THERAPEUTIC TAB PO SCH (08:18)
[2016-06-23] MEDS: levETIRAcetam 1000 MG INJ 100 ML IV SCH (08:18)
[2016-06-23] MEDS: ARTIFICIAL TEARS OPTH SOLN 15 ML BTL EACH EYE SCH ×3 (09:00→18:00)
[2016-06-23] MEDS: BENEPROTEIN POWDER 1 PACK G-TUBE SCH ×3 (09:00→18:00)
--- NOTE | 2016-06-23 09:54 | HHI.CCPN ---
Subjective Remarks/Hospital Course 06/18: 70-[facility]-old unfortunate [facility] resident due to lack of capacity to live independently due to progressively worsening dementia. Patient was progressively getting more lethargic within last few days. She was also noted to be febrile. Per daughter patient baseline is between" sometimes she talks but doesn't make any sense" but sometimes just mumbles. She has also had some decreased by mouth intake. She was found more lethargic almost unresponsive and was transferred to emergency department. In the ED she was found not to be able to protect her airways and was intubated by ER attending. She was admitted to the ICU. 06/19: Patient remains sedated and mechanically ventilated. RASS score of -2. No acute events overnight. Tmax overnight of 100.2F. Review of records from [facility] admission on 05/06/16 patient was admitted due to fevers, rigors, dysuria however urine culture was negative. Blood cultures obtained during that admission were found to be intermittently positive however organisms were all different including staph epi and staph hominis and thought to be contaminants. CXR and head CT were negative. Flu A/B ags were negative. It was noted that the patient had been taking Zyprexa and that medication has been discontinued due to possible neuroleptic-related fever. Patient had also been taking Haldol prn as well as Effexor. Echocardiogram was negative no vegetations. 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 Pt also had elevated LFTs during that admission which trended down and biliary scan was negative. 06/20 Patient is intubated and sedated with Diprivan. Afebrile for LP today. 06/21 Tmax 99.6. Leukocytosis resolving. Liver enzymes are decreasing. The patient remains intubated and CPAP trials thus far unsuccessful. 06/22 Tmax 99.3. No change in neuro status. Patient was maintained on CPAP for approximately 12 hours yesterday. The patient white blood cell count has noted elevation today, will obtain venous Doppler ultrasound bilateral extremities to rule out thrombus. The patient continues on antibiotics per ID recommendations. 06/23: Leukocytosis worsening. Patient went to IR for lumbar puncture this a.m.. Patient is tolerated CPAP trials for greater than 24 hours plans to obtain a RSBI score and possible extubation this afternoon. Objective Vital Signs Date Time Temp Pulse Resp B/P Pulse Ox O2 Delivery O2 Flow Rate FiO2 06/23/16 08:07 100 35 06/23/16 06:00 75 06/23/16 04:00 98.9 17 168/74 Intake and Output 06/22/16 06/22/16 06/23/16 08:00 16:00 00:00 Intake Total 1092 ml 1200 ml 2067 ml Output Total 1150 ml 1800 ml 1800 ml Balance -58 ml -600 ml 267 ml Result Diagram: 06/23/16 0342 06/23/16 0342 Imaging Last Impressions Abdomen/Pelvis CT 06/19/16 0000 Signed Impressions: Service Date/Time: June 17:46 - CONCLUSION: Right ovarian cyst, uterine fibroid and right lower lobe infiltrate. Shaheen Raygoza MD Chest X-Ray 06/18/16 0000 Signed Impressions: Service Date/Time: Saturday, June 18, 2016 05:42 - CONCLUSION: Repositioning of the endotracheal tube. New basilar consolidations. Paras Saleem Jr., MD Brain MRI 06/18/16 0000 Signed Impressions: Service Date/Time: Saturday, June 18, 2016 16:34 - CONCLUSION: 1. No acute findings. Examination is within normal limits for age. No recent infarct, mass or abnormal enhancement postcontrast. Esteban Jeff MD Head CT 06/17/16 2209 Signed Impressions: Service Date/Time: Saturday, June 18, 2016 03:48 - CONCLUSION: No acute disease. Paras Saleem Jr., MD Objective Remarks GENERAL: Well-nourished, well-developed patient. Sedated and intubated SKIN: Warm and dry. HEAD: Normocephalic. EYES: No scleral icterus. No injection or drainage. NECK: Supple, trachea midline. No JVD or lymphadenopathy. CARDIOVASCULAR: Regular rate and rhythm without murmurs, gallops, or rubs. RESPIRATORY: Breath sounds equal bilaterally. No accessory muscle use. GASTROINTESTINAL: Abdomen soft, non-tender, nondistended. MUSCULOSKELETAL: No cyanosis, or edema. Multiple contractures noted. Neuro: Sedated, unresponsive. Urinary Catheter: Yes Kay insert reason: Measure Accurate Output A/P Assessment and Plan NEURO: AMS History of dementia Delirium - On Fentanyl infusion for sedation, daily sedation vacation -Discontinue fentanyl infusion while on CPAP trials - Neuro consulted- Dr. Price -EEG showed mod slowing with sharp waves which could be focus for seizures Continue with Keppra -06/[address] FountainNevlkeya-bnhqar-do results RESP: Respiratory failure, now mechanically ventilated RLL infiltrate - Continue with vent support keep sat > 92% - ICU vent bundle, Bronchodilators-scheduled - Currently on CPAP 02/17, FiO2 35%, 24 hours plan for trial of extubation this afternoon -Maintain head of bed elevation 30 -Chest x-ray 06/22 improving right base consolidation or atelectasis CV: Hypertension -Monitor HR and BP keep MAP>65mmHg -On Lisinopril 40mg daily GI: -Elevated LFT's. - tube feeds with Jevity 1.5 lina at goal of 60 cc/hr, currently on hold for planned extubation - Colace for bowel regimen. Last BM 06/21/16 -CT abdomen/pelvis: Right ovarian cyst, uterine fibroid and right lower lobe infiltrate. Normal liver : Hypophosphatemia -Monitor renal function, I/O's, electrolytes replacement per protocol. -Decrease NS@50ml/hr HEME: Chronic Anemia, stable - Monitor CBC ID: Sepsis Funguria RLL infiltrate-resolved Persistent Leukocytosis - 06/17 BC: Pleomorphic GP rods 03/19 bottles- Likely contaminant - 06/17 UCx growing yeast, pneumococcal legionella negative -Continue with abx per ID (On vancomycin (06/18 -), cefepime (06/18 -), azithromycin (06/17 -), Diflucan (06/18 -) -WBC 11->20->23 today -06/23-LP performed ENDO: - Continue accuchecks - Novolin (low dose) SS - TSH 0.221 PROPH: DVT PPX: TEDs, resume Lovenox in a.m. 24 hours post lumbar puncture GI PPX: Pepcid This patient remains critically ill with one or more organ systems which are or may become a threat to life. I have spent in excess of 33 minutes discontinuously in the care and management of this patient. This time is exclusive of procedures, and includes, but is not limited to, evaluation of the patient, review of the medical record, discussions with family, consultants, nursing staff, or respiratory therapy, and documentation in the medical record. Physician Monica Maxwell MD Jun 23, 2016 09:54
--- NOTE | 2016-06-23 10:07 | PD.RAD ---
Post Procedure Progress Note Pre Procedure Diagnosis: (1) Lethargy (2) Sepsis Post Procedure Diagnosis: (1) Lethargy (2) Sepsis Procedure Date: Jun 23, 2016 Supervising Radiologist: Tony Burks Proceduralist/Assist: Carol Ortiz, RT(R)(), Hema Barbosa RT(R)() Anesthesia: Local Plan of Activity Patient to Unit: Critical Care Patient Condition: Critical See PACS Report for procedural detail/treatment Spinal Procedure Lumbar Puncture L3-L4 Fluid Removal (CCs): 10 Fluid Description: Clear Puncture Time: 09:07 Tony Burks MD Jun 23, 2016 10:06
[2016-06-23 10:45] LABS: SUPERNATE COLOR TUBE #1 CLEAR (CLEAR)
[2016-06-23 10:46] LABS: CSF LYMPHOCYTES 21 %; CSF MONOCYTES 29 %; CSF NEUTROPHILS 50 %; GROSS BLOOD TUBE #1 0 (0); GROSS BLOOD TUBE #2 0 (0); GROSS BLOOD TUBE #3 0 (0); GROSS BLOOD TUBE #4 0 (0); SUPERNATE COLOR TUBE #2 CLEAR (CLEAR); SUPERNATE COLOR TUBE #3 CLEAR (CLEAR); SUPERNATE COLOR TUBE #4 CLEAR (CLEAR); VOLUME TUBE # 4 3.5 ML; WBC TUBE #1 2 /MM3 (0-10)
--- NOTE | 2016-06-23 15:35 | HHI.HCPN ---
Reason for visit a. To assist with evaluation and management of symptoms including: dyspnea, lethargy, weakness. b. To assist medical decision maker(s) with: better understanding of current medical conditions; weighing benefits/burdens of medical treatment options; making medical treatment decisions. . (DANIEL HARMON) Subjective/Interval History Patient seen and examined in ICU. Discussed with Dr. Evangelista. Corrine Simons at bedside. Tmax 99.9. Tolerating CPAP for > 24 hours. WBC increasing, now 23.0. Creatinine normal (0.47). Patient had lumbar puncture this morning, cultures and cytology pending. Bilateral upper and lower extremity US negative for DVT. . Family/friend interactions Spoke with Constance cordoba and Mr. Busby (spouse) outside of room with Dr. Evangelista. Medical update provided. Attempted to clarify wishes should patient be medically extubated - in discussion family requests patient be kept on mechanical vent until lumbar puncture results come back, Dr. Evangelista agrees. Again palliative care number provided. . (DANIEL HARMON) Advance Directives Advance Directive Specifics Date completed: None. Health Care Surrogate(s): According to [place] statutes, health care proxy decision-making falls to the patient's spouse. . Documented care wishes: None. Significant change in goals: WILL CODE. Family desires continued aggressive care. Family requests that patient remained on mechanical ventilation until lumber puncture results are back, Dr. Evangelista agrees. . (DANIEL HARMON) Objective Vital Signs Date Time Temp Pulse Resp B/P Pulse Ox O2 Delivery O2 Flow Rate FiO2 06/23/16 13:05 100 35 06/23/16 12:00 66 06/23/16 12:00 35 06/23/16 12:00 99.3 66 21 138/65 100 06/23/16 10:00 72 06/23/16 08:07 100 35 06/23/16 08:00 35 06/23/16 08:00 61 06/23/16 08:00 99.5 69 17 159/78 100 06/23/16 06:00 75 06/23/16 04:00 70 06/23/16 04:00 98.9 73 17 168/74 100 06/23/16 04:00 35 06/23/16 03:52 100 35 06/23/16 02:00 68 06/23/16 00:45 100 35 06/23/16 00:00 75 06/23/16 00:00 35 06/23/16 00:00 99.1 74 22 134/71 100 06/22/16 22:00 80 06/22/16 20:00 99.9 84 16 140/75 100 06/22/16 20:00 90 06/22/16 20:00 35 06/22/16 19:38 99 35 06/22/16 18:00 92 06/22/16 16:16 98 35 06/22/16 16:00 90 06/22/16 16:00 99.6 90 17 134/73 98 06/22/16 16:00 35 Intake & Output 06/23/16 06/23/16 07:00 19:00 Intake Total 3089 ml Output Total 2800 ml Balance 289 ml Intake Oral 0 ml IV Total 1943 ml Tube Feeding 846 ml Other 300 ml Output Urine Total 2800 ml Gastric Drainage Total 0 ml Tube Feeding Residual Discard 0 ml # Bowel Movements 2 Physical Exam CONSTITUTIONAL/GENERAL: This is an adequately nourished patient, sedated on [facility] vent. TUBES/LINES/DRAINS: ETT, OG, PIV left wrist, PIV left hand, Kay, podus boots. SKIN: No jaundice, rashes, or lesions. Ecchymoses on upper extremities. No wounds seen anteriorly. Skin temperature appropriate. Not diaphoretic. EYES: Eyes closed. Does not open to voice or painful stimuli. ENT: Unable to assess hearing. Nose without bleeding or purulent drainage. Difficult to visualize throat due to tubes. CARDIOVASCULAR: Regular rate and rhythm without murmurs, gallops, or rubs. No JVD. Peripheral pulses symmetric. RESPIRATORY/CHEST: Symmetric, unlabored respirations on vent. Diminished breath sounds bilaterally. GASTROINTESTINAL: Abdomen soft, non-tender, nondistended. No guarding. Bowel sounds present. GENITOURINARY: Without palpable bladder distension. Kay catheter in place. MUSCULOSKELETAL: Extremities without clubbing, cyanosis, or edema. No mottling or clubbing. NEUROLOGICAL: off sedation. Does not open eyes to voice or exam. Withdraws to noxious stimuli. PSYCHIATRIC: off sedation, called. . (DANIEL HARMON-Hero) Diagnostic Tests Laboratory Laboratory Tests Test 06/21/16 06/21/16 06/22/16 06/23/16 00:10 03:34 04:12 03:42 Vancomycin Level Trough 12.7 MCG/ML (5.0-10.0) White Blood Count 11.0 TH/MM3 20.6 TH/MM3 23.0 TH/MM3 (4.0-11.0) (4.0-11.0) (4.0-11.0) Red Blood Count 3.30 MIL/MM3 3.82 MIL/MM3 3.84 MIL/MM3 (4.00-5.30) (4.00-5.30) (4.00-5.30) Hemoglobin 9.7 GM/DL 11.4 GM/DL 11.6 GM/DL (11.6-15.3) (11.6-15.3) (11.6-15.3) Hematocrit 30.3 % 34.1 % 34.4 % (35.0-46.0) (35.0-46.0) (35.0-46.0) Mean Corpuscular Volume 91.9 FL 89.4 FL 89.5 FL (80.0-100.0) (80.0-100.0) (80.0-100.0) Mean Corpuscular Hemoglobin 29.3 PG 29.9 PG 30.1 PG (27.0-34.0) (27.0-34.0) (27.0-34.0) Mean Corpuscular Hemoglobin 31.9 % 33.4 % 33.6 % Concent (32.0-36.0) (32.0-36.0) (32.0-36.0) Red Cell Distribution Width 14.8 % 14.8 % 14.5 % (11.6-17.2) (11.6-17.2) (11.6-17.2) Platelet Count 174 TH/MM3 203 TH/MM3 202 TH/MM3 (150-450) (150-450) (150-450) Mean Platelet Volume 9.8 FL 10.2 FL 9.8 FL (7.0-11.0) (7.0-11.0) (7.0-11.0) Neutrophils (%) (Auto) 85.6 % 92.9 % (16.0-70.0) (16.0-70.0) Lymphocytes (%) (Auto) 8.0 % 4.2 % (9.0-44.0) (9.0-44.0) Monocytes (%) (Auto) 6.3 % (0.0-8.0) 2.7 % (0.0-8.0) Eosinophils (%) (Auto) 0.0 % (0.0-4.0) 0.0 % (0.0-4.0) Basophils (%) (Auto) 0.1 % (0.0-2.0) 0.2 % (0.0-2.0) Neutrophils # (Auto) 9.5 TH/MM3 21.4 TH/MM3 (1.8-7.7) (1.8-7.7) Lymphocytes # (Auto) 0.9 TH/MM3 1.0 TH/MM3 (1.0-4.8) (1.0-4.8) Monocytes # (Auto) 0.7 TH/MM3 0.6 TH/MM3 (0-0.9) (0-0.9) Eosinophils # (Auto) 0.0 TH/MM3 0.0 TH/MM3 (0-0.4) (0-0.4) Basophils # (Auto) 0.0 TH/MM3 0.0 TH/MM3 (0-0.2) (0-0.2) CBC Comment AUTO DIFF AUTO DIFF Differential Total Cells 100 100 Counted Neutrophils % (Manual) 81 % (16-70) 83 % (16-70) Band Neutrophils % 10 % (0-6) 6 % (0-6) Lymphocytes % 5 % (9-44) 6 % (9-44) Monocytes % 3 % (0-8) 5 % (0-8) Neutrophils # (Manual) 10.1 TH/MM3 20.5 TH/MM3 (1.8-7.7) (1.8-7.7) Metamyelocytes 1 % (0-1) Differential Comment FINAL DIFF FINAL DIFF MANUAL MANUAL Platelet Estimate NORMAL NORMAL (NORMAL) (NORMAL) Platelet Morphology Comment NORMAL NORMAL (NORMAL) (NORMAL) Sodium Level 143 MEQ/L 138 MEQ/L 138 MEQ/L (136-145) (136-145) (136-145) Potassium Level 4.6 MEQ/L 4.5 MEQ/L 4.2 MEQ/L (3.5-5.1) (3.5-5.1) (3.5-5.1) Chloride Level 111 MEQ/L 102 MEQ/L 100 MEQ/L (98-107) (98-107) (98-107) Carbon Dioxide Level 26.1 MEQ/L 28.8 MEQ/L 29.6 MEQ/L (21.0-32.0) (21.0-32.0) (21.0-32.0) Anion Gap 6 MEQ/L (5-15) 7 MEQ/L (5-15) 8 MEQ/L (5-15) Blood Urea Nitrogen 39 MG/DL (7-18) 28 MG/DL (7-18) 24 MG/DL (7-18) Creatinine 0.58 MG/DL 0.57 MG/DL 0.47 MG/DL (0.50-1.00) (0.50-1.00) (0.50-1.00) Estimat Glomerular Filtration 103 ML/MIN 105 ML/MIN 131 ML/MIN Rate (>89) (>89) (>89) Random Glucose 205 MG/DL 209 MG/DL 177 MG/DL (74-106) (74-106) (74-106) Calcium Level 8.4 MG/DL 8.4 MG/DL 8.4 MG/DL (8.5-10.1) (8.5-10.1) (8.5-10.1) Total Bilirubin 0.3 MG/DL (0.2-1.0) Aspartate Amino Transf 91 U/L (15-37) (AST/SGOT) Alanine Aminotransferase 379 U/L (10-53) (ALT/SGPT) Alkaline Phosphatase 87 U/L (45-117) Total Protein 5.8 GM/DL (6.4-8.2) Albumin 2.2 GM/DL (3.4-5.0) Phosphorus Level 2.4 MG/DL 2.4 MG/DL (2.5-4.9) (2.5-4.9) Magnesium Level 1.9 MG/DL 1.9 MG/DL (1.5-2.5) (1.5-2.5) Red Cell Morphology Comment NORMAL (NORMAL) Test 06/23/16 09:07 CSF Volume (Tube 1) 2.0 ML CSF Supernatant Color (tube 1) CLEAR (CLEAR) CSF Gross Blood (Tube 1) 0 (0) CSF WBC (Tube 1) 2 /MM3 (0-10) CSF RBC (Tube 1) 29 /MM3 (NONE) CSF Volume (Tube 2) 2.0 ML CSF Supernatant Color (tube 2) CLEAR (CLEAR) CSF Gross Blood (Tube 2) 0 (0) CSF Volume (Tube 3) 2.0 ML CSF Supernatant Color (tube 3) CLEAR (CLEAR) CSF Gross Blood (Tube 3) 0 (0) CSF Volume (Tube 4) 3.5 ML CSF Supernatant Color (tube 4) CLEAR (CLEAR) CSF Gross Blood (Tube 4) 0 (0) CSF Neutrophils 50 % CSF Lymphocytes 21 % CSF Monocytes 29 % CSF Glucose 110 MG/DL (40-80) CSF Total Protein 35.0 MG/DL (15.0-45.0) (DANIEL HARMON) Result Diagram: 06/23/16 0342 06/23/16 0342 Microbiology Microbiology Date/Time Procedure Status Source Growth 06/23/16 09:07 Gram Stain - Final Resulted Cerebral Spinal Fluid Lumbar Puncture 06/23/16 09:07 CSF Culture Resulted Cerebral Spinal Fluid Lumbar Puncture Pending 06/23/16 09:07 Acid Fast Stain Received Cerebral Spinal Fluid Lumbar Puncture Pending 06/23/16 09:07 Mycobacterial Culture Received Cerebral Spinal Fluid Lumbar Puncture Pending 06/23/16 09:07 Fungal Smear Received Cerebral Spinal Fluid Lumbar Puncture Pending 06/23/16 09:07 Fungal Culture Received Cerebral Spinal Fluid Lumbar Puncture Pending . Imaging Last Impressions Chest X-Ray 06/22/16 0600 Signed Impressions: Service Date/Time: Wednesday, June 22, 2016 05:16 - CONCLUSION: Improving right base consolidation or atelectasis. Tony Carroll MD Upper Extremity Ultrasound 06/22/16 0000 Signed Impressions: Service Date/Time: Wednesday, June 22, 2016 11:01 - CONCLUSION: Normal examination. Mary Thomas MD Lower Extremity Ultrasound 06/22/16 0000 Signed Impressions: Service Date/Time: Wednesday, June 22, 2016 10:44 - CONCLUSION: Normal examination. Mary Thomas MD Liver Ultrasound 06/20/16 0000 Signed Impressions: Service Date/Time: Monday, June 20, 2016 16:03 - CONCLUSION: 1. Hepatomegaly 2. Suspected small gallbladder polyp. 3. Right renal cyst and a minimally complex cyst seen at the left kidney. Tony Carroll MD Abdomen/Pelvis CT 06/19/16 0000 Signed Impressions: Service Date/Time: June 17:46 - CONCLUSION: Right ovarian cyst, uterine fibroid and right lower lobe infiltrate. K. Jasbir Raygoza MD Brain MRI 06/18/16 0000 Signed Impressions: Service Date/Time: Saturday, June 18, 2016 16:34 - CONCLUSION: 1. No acute findings. Examination is within normal limits for age. No recent infarct, mass or abnormal enhancement postcontrast. Esteban Jeff MD Head CT 06/17/[id number] Signed Impressions: Service Date/Time: Saturday, June 18, 2016 03:48 - CONCLUSION: No acute disease. Paras Saleem Jr., MD . Procedures * 06/23/16 lumbar puncture * 06/17/16 intubated . (DANIEL HARMON-Hero) Assessment and Plan Disease Oriented Problem List: (1) Respiratory failure (2) Sepsis (3) Pneumonia Symptom Scale: (1) Weakness 0-10 Scale: Unable to quantify (2) Dyspnea 0-10 Scale: Unable to quantify (3) Lethargy 0-10 Scale: Unable to quantify Pertinent Non-Medical Issues Psychosocial: . Spiritual: Unknown. Legal: Notes indicate patient may have written advance directives. Will request copies. Patient is incapacitated to make her own health care decisions. If no written advance directives, according to [place] statutes health care proxy decision-making would fall to the patient's spouse. Ethical issues impacting care: No known concerns at this time. . Important Contacts * Kaleb Busby, spouse: [phone] or [phone] . Prognosis Unable to adequately prognosticate at this time given pending test results. Patient is critically ill in ICU. . Code Status: Full Code Plan * Patient is incapacitated to make her own health care decisions. If no written advance directives, according to [place] statutes health care proxy decision-making would fall to the patient's spouse. * FULL CODE * Palliative care spoke with , daughter and another family member. Dr. Evangelista provided update. Family requests that patient not be medically extubated until lumbar puncture results are available, they are hoping that additional test results will help make decisions regarding reintubation or not. Dr. Evangelista agrees. Palliative care will continue to follow to assist with communication and clarification of treatment goals as needed. * SYMPTOMS: Dyspnea: on mechanical ventilation. Was emergently intubated on 06/17 due to inability to protect airway. Lethargy: possible secondary to dementia and/or infection vs. other etiology, LP pending. Off sedation, not following commands or opening eyes. Weakness: secondary to infection, repeat hospitalization. Will require ongoing PT. No new medication recommendations at this time. * Palliative care number provided. * Palliative care will continue to follow throughout hospital course to assist with symptom management and clarification of goals as needed. . (DANIEL HARMON) Time Spent Total Floor Time (mins): 45 Face to Face Time (mins): 30 >50% Counseling/Coord of Care: Yes (DANIEL HARMON) Attestation To help prompt me to consider important information that might be impacting today's encounter and assessment, information from prior notes written by myself or my colleagues may have been "brought forward" into today's note. My signature on this note, however, is an attestation that I personally performed the exam, history, and/or decision-making noted today, and, unless otherwise indicated, the interactions with patient, family, and staff as well as the review of records all occurred today. I also attest that the listed assessment and stated plan reflect my best clinical judgment today based on the combination of historical information, prior notes, and today's exam/ interactions. When time spent is documented, it refers only to time spent today by the signer, or if indicated, combined time spent today by collaborating physician/nurse practitioner. (DANIEL HARMON) Collaborating MD Comments . Chart reviewed. Cased discussed with palliative care HOUSEKEEPING MANAGER. Above HOUSEKEEPING MANAGER note reviewed and I concur. . (Aaron Pierce MD) DANIEL HARMON Jun 23, 2016 15:35 Aaron Pierce MD August 11, 2016 14:49
[2016-06-23] MEDS: FLUCONAZOLE/NACL 400 MG/200 ML IV SCH (16:23)
--- NOTE | 2016-06-23 22:04 | HHI.IDPN ---
Subjective Subjective Remarks Delayed entry - pt was seen earlier today around 1830 sp LP: CSF not cw active infx Neuro unchanged - minimally reactive off sedation low grade temps Antibiotics azithro cefepime vancomycin fluconazole Lines Line sites with no e.o infection Past Medical History dementia Allergies: Coded Allergies: Olanzapine (Verified Allergy, Unknown, UNKNOWN, 06/17/16) Objective . Vital Signs Date Time Temp Pulse Resp B/P Pulse Ox O2 Delivery O2 Flow Rate FiO2 06/23/16 20:00 63 06/23/16 20:00 98.8 63 22 139/64 100 06/23/16 20:00 35 06/23/16 19:27 99 35 06/23/16 18:00 73 06/23/16 16:00 98.7 65 23 142/65 100 06/23/16 16:00 65 06/23/16 16:00 35 06/23/16 15:55 100 35 06/23/16 14:00 70 06/23/16 13:05 100 35 06/23/16 12:00 66 06/23/16 12:00 35 06/23/16 12:00 99.3 66 21 138/65 100 06/23/16 10:00 72 06/23/16 08:07 100 35 06/23/16 08:00 35 06/23/16 08:00 61 06/23/16 08:00 99.5 69 17 159/78 100 06/23/16 06:00 75 06/23/16 04:00 70 06/23/16 04:00 98.9 73 17 168/74 100 06/23/16 04:00 35 06/23/16 03:52 100 35 06/23/16 02:00 68 06/23/16 00:45 100 35 06/23/16 00:00 75 06/23/16 00:00 35 06/23/16 00:00 99.1 74 22 134/71 100 06/22/16 22:00 80 06/22/16 06/22/16 06/23/16 15:00 23:00 07:00 Intake Total 1200 ml 2067 ml 1022 ml Output Total 1800 ml 1800 ml 1000 ml Balance -600 ml 267 ml 22 ml Intake Oral 0 ml IV Total 600 ml 1421 ml 522 ml Tube Feeding 400 ml 446 ml 400 ml Other 200 ml 200 ml 100 ml Output Urine Total 1800 ml 1800 ml 1000 ml Gastric Drainage Total 0 ml Tube Feeding Residual Discard 0 ml # Bowel Movements 1 0 2 . Laboratory Tests Test 06/22/16 06/23/16 04:12 03:42 White Blood Count 20.6 TH/MM3 23.0 TH/MM3 Red Blood Count 3.82 MIL/MM3 3.84 MIL/MM3 Hemoglobin 11.4 GM/DL 11.6 GM/DL Hematocrit 34.1 % 34.4 % Mean Corpuscular Volume 89.4 FL 89.5 FL Mean Corpuscular Hemoglobin 29.9 PG 30.1 PG Mean Corpuscular Hemoglobin 33.4 % 33.6 % Concent Red Cell Distribution Width 14.8 % 14.5 % Platelet Count 203 TH/MM3 202 TH/MM3 Mean Platelet Volume 10.2 FL 9.8 FL Neutrophils (%) (Auto) 92.9 % Lymphocytes (%) (Auto) 4.2 % Monocytes (%) (Auto) 2.7 % Eosinophils (%) (Auto) 0.0 % Basophils (%) (Auto) 0.2 % Neutrophils # (Auto) 21.4 TH/MM3 Lymphocytes # (Auto) 1.0 TH/MM3 Monocytes # (Auto) 0.6 TH/MM3 Eosinophils # (Auto) 0.0 TH/MM3 Basophils # (Auto) 0.0 TH/MM3 CBC Comment AUTO DIFF Differential Total Cells 100 Counted Neutrophils % (Manual) 83 % Band Neutrophils % 6 % Lymphocytes % 6 % Monocytes % 5 % Neutrophils # (Manual) 20.5 TH/MM3 Differential Comment FINAL DIFF MANUAL Platelet Estimate NORMAL Platelet Morphology Comment NORMAL Red Cell Morphology Comment NORMAL Laboratory Tests Test 06/22/16 06/23/16 06/23/16 04:12 03:42 19:55 Sodium Level 138 MEQ/L 138 MEQ/L Potassium Level 4.5 MEQ/L 4.2 MEQ/L Chloride Level 102 MEQ/L 100 MEQ/L Carbon Dioxide Level 28.8 MEQ/L 29.6 MEQ/L Anion Gap 7 MEQ/L 8 MEQ/L Blood Urea Nitrogen 28 MG/DL 24 MG/DL Creatinine 0.57 MG/DL 0.47 MG/DL Estimat Glomerular Filtration 105 ML/MIN 131 ML/MIN Rate Random Glucose 209 MG/DL 177 MG/DL Calcium Level 8.4 MG/DL 8.4 MG/DL Phosphorus Level 2.4 MG/DL 2.4 MG/DL 3.3 MG/DL Magnesium Level 1.9 MG/DL 1.9 MG/DL Microbiology Date/Time Procedure Status Source Growth 06/23/16 09:07 Gram Stain - Final Resulted Cerebral Spinal Fluid Lumbar Puncture 06/23/16 09:07 CSF Culture Resulted Cerebral Spinal Fluid Lumbar Puncture Pending 06/23/16 09:07 Acid Fast Stain Received Cerebral Spinal Fluid Lumbar Puncture Pending 06/23/16 09:07 Mycobacterial Culture Received Cerebral Spinal Fluid Lumbar Puncture Pending 06/23/16 09:07 Fungal Smear - Final Resulted Cerebral Spinal Fluid Lumbar Puncture NO FUNGAL ELEMENTS SEEN. 06/23/16 09:07 Fungal Culture Resulted Cerebral Spinal Fluid Lumbar Puncture Pending Imaging Last Impressions Chest X-Ray 06/22/16 0600 Signed Impressions: Service Date/Time: Wednesday, June 22, 2016 05:16 - CONCLUSION: Improving right base consolidation or atelectasis. Tony Carroll MD Upper Extremity Ultrasound 06/22/16 0000 Signed Impressions: Service Date/Time: Wednesday, June 22, 2016 11:01 - CONCLUSION: Normal examination. Mary Thomas MD Lower Extremity Ultrasound 06/22/16 0000 Signed Impressions: Service Date/Time: Wednesday, June 22, 2016 10:44 - CONCLUSION: Normal examination. Mary Thomas MD Liver Ultrasound 06/20/16 0000 Signed Impressions: Service Date/Time: Monday, June 20, 2016 16:03 - CONCLUSION: 1. Hepatomegaly 2. Suspected small gallbladder polyp. 3. Right renal cyst and a minimally complex cyst seen at the left kidney. Tony Carroll MD Abdomen/Pelvis CT 06/19/16 0000 Signed Impressions: Service Date/Time: June 17:46 - CONCLUSION: Right ovarian cyst, uterine fibroid and right lower lobe infiltrate. KJose Raygoza MD Brain MRI 06/18/16 0000 Signed Impressions: Service Date/Time: Saturday, June 18, 2016 16:34 - CONCLUSION: 1. No acute findings. Examination is within normal limits for age. No recent infarct, mass or abnormal enhancement postcontrast. Esteban Jeff MD Head CT 06/17/16 9659 Signed Impressions: Service Date/Time: Saturday, June 18, 2016 03:48 - CONCLUSION: No acute disease. Paras Saleem Jr., MD Physical Exam CONSTITUTIONAL/GENERAL: This is an obese elderly patient, in no apparent distress. TUBES/LINES/DRAINS: SKIN: No jaundice, rashes, or lesions. Ecchymoses on upper extremities. No wounds seen anteriorly. Skin temperature appropriate. Not diaphoretic. HEAD: Atraumatic. Normocephalic. EYES: Pupils equal and round and reactive. Extraocular motions intact. No scleral icterus. No injection or drainage. Fundi not examined. ENT: Hearing can not be assessed. Nose without bleeding or purulent drainage. Oraly intubated NECK: Trachea midline. somewhat stiff CARDIOVASCULAR: Regular rate and rhythm without murmurs, gallops, or rubs. No JVD. Peripheral pulses symmetric. RESPIRATORY/CHEST: Symmetric, unlabored respirations. Clear to auscultation. Breath sounds equal bilaterally. No wheezes, rales, or rhonchi. GASTROINTESTINAL: Abdomen soft, non-tender (no reaction to palpation), mildly distended. No hepato-splenomegaly, or palpable masses. No guarding. Bowel sounds present. GENITOURINARY: Without palpable bladder distension. Kay catheter in place. MUSCULOSKELETAL: Extremities without clubbing, cyanosis, or edema. No joint tenderness or effusion noted. No mottling or clubbing. LYMPHATICS: No palpable cervical or supraclavicular adenopathy. NEUROLOGICAL: Unresponsive w/d to pain PSYCHIATRIC: unable to assess Assessment & Plan Remarks Sepsis present on admission (fever, tachycardia, WBC 20K on admission) Acute metabolic encephalopathy: sepsis, - no e/o meningitis on prelim CSF studies Aspiration pneumonia prior to admission. Underlying dementia UTI Acute VDRF Low grade bacteremia 2/2 Corynebacterium JK - doubt clin significance likely contaminant as no foreign body infection Funguria Recs: Continue Azithro IV Continue Cefepime IV dc Vanco IV Continue fluconazole IV for now. Milagros Fountain MD Jun 23, 2016 22:04 Milagros Fountain MD Jun 23, 2016 22:04
[2016-06-23] MEDS ORDERED: PHARMACY ORDERED LAB ONE (23:45)
[2016-06-24] VITALS (18 sets, daily range): BP systolic 107–137; BP diastolic 57–77; PULSE 51–100; RESP 13–24; TEMP 98.5–99.7; O2SAT 97–100
[2016-06-24] MEDS: methylPREDNISolone SOD SUCC 40 MG/1 ML VIAL IV SCH ×3 (01:26→22:24)
[2016-06-24] MEDS: levETIRAcetam 1000 MG INJ 100 ML IV SCH ×3 (01:26→22:20)
[2016-06-24] MEDS: AZITHROMYCIN INJ 500 MG in SODIUM CHLOR 0.9% 250 ML INJ 250 ML IV SCH ×2 (01:26→22:23)
[2016-06-24] MEDS: CEFEPIME INJ 2,000 MG in SODIUM CHLORIDE 0.9% INJ 100 ML IV SCH ×4 (01:26→22:22)
[2016-06-24] MEDS: FAMOTIDINE 20 MG/2 ML VIAL IV PUSH SCH ×3 (01:27→22:23)
[2016-06-24] MEDS: CHLORHEXIDINE GLUCONATE 2 % 1 PACK (2 CLOTHS) TOP SCH (01:28)
[2016-06-24] MEDS: INSULIN NovoLIN REGULAR SUPPLEMENTAL SCALE SQ SCH ×5 (01:36→21:00)
[2016-06-24] MEDS: DOCUSATE SODIUM 100 MG CAP G-TUBE SCH ×2 (03:00→15:26)
[2016-06-24 04:39] LABS: AUTOMATED NEUTROPHIL # 20.4 TH/MM3 (1.8-7.7); BASOPHIL # 0.1 TH/MM3 (0-0.2); BASOPHIL % 0.2 % (0.0-2.0); EOSINOPHIL % 0.1 % (0.0-4.0); HEMATOCRIT 32.2 % (35.0-46.0); LYMPH % 9.7 % (9.0-44.0); LYMPHOCYTE # 2.3 TH/MM3 (1.0-4.8); MEAN CELL VOLUME 90.8 FL (80.0-100.0); MEAN CORPUSCULAR HEMOGLOBIN 29.1 PG (27.0-34.0); MONO % 5.6 % (0.0-8.0); NEUT % 84.4 % (16.0-70.0); PLATELET COUNT 182 TH/MM3 (150-450); RED BLOOD COUNT 3.55 MIL/MM3 (4.00-5.30); RED CELL DISTRIBUTION WIDTH 14.5 % (11.6-17.2); WHITE BLOOD COUNT 24.1 TH/MM3 (4.0-11.0)
[2016-06-24 04:56] LABS: BICARBONATE 30.1 MEQ/L (21.0-32.0); MAGNESIUM 1.9 MG/DL (1.5-2.5); POTASSIUM 4.1 MEQ/L (3.5-5.1)
[2016-06-24 06:07] LABS: HEMO FLAGS AUTO DIFF
[2016-06-24 07:26] LABS: EOSINOPHILS 1 % (0-4); METAMYELOCYTES 1 % (0-1); MYELOCYTES 3 % (0-0); PLATELET ESTIMATE SMEAR NORMAL (NORMAL); PLATELET MORPHOLOGY NORMAL (NORMAL); POLYS (SEG NEUTROPHILS) 74 % (16-70); PROMYELOCYTES 1 % (0-0); WBC DIFF SAMPLE 100
[2016-06-24 07:27] LABS: SCAN/DIFF FINAL DIFF MANUAL
[2016-06-24] MEDS: RESP: ALBUTEROL 2.5 MG/3 ML NEB (SCH) NEB ×4 (07:59→20:11)
[2016-06-24] MEDS: SODIUM CHLORIDE 0.9% FLUSH 10 ML FLUSH SCH ×2 (08:30→21:00)
[2016-06-24] MEDS: BENEPROTEIN POWDER 1 PACK G-TUBE SCH ×3 (08:30→17:29)
[2016-06-24] MEDS: MULTIVITAMINS/MINERALS THERAPEUTIC TAB PO SCH (08:31)
[2016-06-24] MEDS: LISINOPRIL 20 MG TAB PO SCH (08:31)
--- NOTE | 2016-06-24 09:07 | RADRPT ---
EXAM DATE/TIME: 06/23/2016 09:58 [facility] COMPARISON: No previous studies available for comparison. INDICATIONS : Patient is in need of a lumbar puncture to evaluate CSF due to fever and AMS. MEDICAL HISTORY : History of dementia. Alzheimer's, pneumonis, respiratory failure, anemia, HTN, CAD. SURGICAL HISTORY : Unable to obtain. ENCOUNTER: Initial ACUITY: 4 -6 days PAIN SCORE: 0/10 LOCATION: Patient is vented. LUMBAR PUNCTURE TIME: 0907 hours FLUORO TIME: 1.5 minutes IMAGE SERIES: 0 ACCESS LEVEL: L3-4 FLUID: 10 cc of clear CSF was collected and sent to the laboratory for analysis. PROCEDURE : 1. Fluoroscopic guided lumbar puncture. The risks, benefits and alternatives to the procedure were explained and verbal and written consent w as obtained. The site was prepped in sterile fashion. Full sterile technique was used, including ca p, mask, sterile gloves and gown and a large sterile sheet. Hand hygiene and 2% chlorhexidine and/or betadine/alcohol prep was utilized per protocol for cutaneous antisepsis. The skin and subcutaneous tissues were infiltrated with local anesthetic solution. With fluoroscopic guidance the lumbar thecal sac was punctured at the level above. The fluid describ ed above was removed without difficulty. The patient tolerated the procedure well and there were no complications. CONCLUSION: Uncomplicated fluoroscopically guided lumbar puncture. Tony Burks MD on June 24, 2016 at 9:05 Board Certified Radiologist. This report was verified electronically.
[2016-06-24 10:25] LABS: HSV 1,PCR Negative (Negative)
[2016-06-24] MEDS: ARTIFICIAL TEARS OPTH SOLN 15 ML BTL EACH EYE SCH ×3 (10:31→17:11)
--- NOTE | 2016-06-24 15:08 | HHI.CCPN ---
Subjective Remarks/Hospital Course 06/18: 70-year-old unfortunate female [facility] resident due to lack of capacity to live independently due to progressively worsening dementia. Patient was progressively getting more lethargic within last few days. She was also noted to be febrile. Per daughter patient baseline is between" sometimes she talks but doesn't make any sense" but sometimes just mumbles. She has also had some decreased by mouth intake. She was found more lethargic almost unresponsive and was transferred to emergency department. In the ED she was found not to be able to protect her airways and was intubated by ER attending. She was admitted to the ICU. 06/19: Patient remains sedated and mechanically ventilated. RASS score of -2. No acute events overnight. Tmax overnight of 100.2F. Review of records from [facility] admission on 05/06/16 patient was admitted due to fevers, rigors, dysuria however urine culture was negative. Blood cultures obtained during that admission were found to be intermittently positive however organisms were all different including staph epi and staph hominis and thought to be contaminants. CXR and head CT were negative. Flu A/B ags were negative. It was noted that the patient had been taking Zyprexa and that medication has been discontinued due to possible neuroleptic-related fever. Patient had also been taking Haldol prn as well as Effexor. Echocardiogram was negative no vegetations. 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 Pt also had elevated LFTs during that admission which trended down and biliary scan was negative. 06/20 Patient is intubated and sedated with Diprivan. Afebrile for LP today. 06/21 Tmax 99.6. Leukocytosis resolving. Liver enzymes are decreasing. The patient remains intubated and CPAP trials thus far unsuccessful. 06/22 Tmax 99.3. No change in neuro status. Patient was maintained on CPAP for approximately 12 hours yesterday. The patient white blood cell count has noted elevation today, will obtain venous Doppler ultrasound bilateral extremities to rule out thrombus. The patient continues on antibiotics per ID recommendations. 06/23: Leukocytosis worsening. Patient went to IR for lumbar puncture this a.m.. Patient is tolerated CPAP trials for greater than 24 hours plans to obtain a RSBI score and possible extubation this afternoon. 06/24: Afebrile .The patient has continued on CPAP greater than 48 hours. WBC count trending upward. Decision not to remove endotracheal tube, yesterday decided by and family with palliative care on board with a possibility of reintubation. Family considering goals of care at this time and wished to await results of lumbar puncture before decision to extubate the patient. Objective Vital Signs Date Time Temp Pulse Resp B/P Pulse Ox O2 Delivery O2 Flow Rate FiO2 06/24/16 14:00 71 06/24/16 12:00 35 06/24/16 12:00 99.7 19 107/57 97 Intake and Output 06/23/16 06/23/16 06/24/16 08:00 16:00 00:00 Intake Total 1022 ml 1710 ml 1040 ml Output Total 1000 ml 1325 ml 900 ml Balance 22 ml 385 ml 140 ml Result Diagram: 06/24/16 0426 06/24/16 0426 Imaging Last Impressions Abdomen/Pelvis CT 06/19/16 0000 Signed Impressions: Service Date/Time: June 17:46 - CONCLUSION: Right ovarian cyst, uterine fibroid and right lower lobe infiltrate. KJose Raygoza MD Chest X-Ray 06/18/16 0000 Signed Impressions: Service Date/Time: Saturday, June 18, 2016 05:42 - CONCLUSION: Repositioning of the endotracheal tube. New basilar consolidations. Paras Saleem Jr., MD Brain MRI 06/18/16 0000 Signed Impressions: Service Date/Time: Saturday, June 18, 2016 16:34 - CONCLUSION: 1. No acute findings. Examination is within normal limits for age. No recent infarct, mass or abnormal enhancement postcontrast. Esteban Jeff MD Head CT 06/17/16 [id number] Signed Impressions: Service Date/Time: Saturday, June 18, 2016 03:48 - CONCLUSION: No acute disease. Paras Saleem Jr., MD Objective Remarks GENERAL: Well-nourished, well-developed patient. Sedated and intubated SKIN: Warm and dry. HEAD: Normocephalic. EYES: No scleral icterus. No injection or drainage. NECK: Supple, trachea midline. No JVD or lymphadenopathy. CARDIOVASCULAR: Regular rate and rhythm without murmurs, gallops, or rubs. RESPIRATORY: Breath sounds equal bilaterally. No accessory muscle use. GASTROINTESTINAL: Abdomen soft, non-tender, nondistended. MUSCULOSKELETAL: No cyanosis, or edema. Multiple contractures noted. Neuro: Sedated, unresponsive. Urinary Catheter: Yes Kay insert reason: Measure Accurate Output A/P Assessment and Plan NEURO: AMS History of dementia Delirium - On Fentanyl infusion for sedation, daily sedation vacation -Discontinue fentanyl infusion while on CPAP trials - Neuro consulted- Dr. Price -EEG showed mod slowing with sharp waves which could be focus for seizures Continue with Keppra -06/[address] [id number] results RESP: Respiratory failure, now mechanically ventilated RLL infiltrate - Continue with vent support keep sat > 92% - ICU vent bundle, Bronchodilators-scheduled - Currently on CPAP 02/17, FiO2 35% since 06/23 -Maintain head of bed elevation 30 -Chest x-ray 06/22 improving right base consolidation or atelectasis CV: Hypertension -Monitor HR and BP keep MAP>65mmHg -On Lisinopril 40mg daily GI: -Elevated LFT's. - tube feeds with Jevity 1.5 lina at goal of 60 cc/hr, currently on hold for planned extubation - Colace for bowel regimen. Last BM 06/21/16 -CT abdomen/pelvis: Right ovarian cyst, uterine fibroid and right lower lobe infiltrate. Normal liver : Hypophosphatemia -Monitor renal function, I/O's, electrolytes replacement per protocol. -Decrease NS@50ml/hr HEME: Chronic Anemia, stable - Monitor CBC ID: Sepsis Funguria RLL infiltrate-resolved Persistent Leukocytosis - 06/17 BC: Pleomorphic GP rods / bottles- Likely contaminant - 06/17 UCx growing yeast, pneumococcal legionella negative -Continue with abx per ID (On vancomycin (06/18 -), cefepime (06/18 -), azithromycin (06/17 -), Diflucan (06/18 -) -WBC 11->20->23 ->24 today -06/23-LP performed ENDO: - Continue accuchecks - Novolin (low dose) SSI - TSH 0.221 PROPH: DVT PPX: TEDs, resume Lovenox in a.m. 24 hours post lumbar puncture GI PPX: Pepcid Level 3 Dispo: Palliative care on board, trial of extubation placed on hold 06/23. Family wishes to continue with palliative care for meeting later this week. Family is awaiting results of lumbar puncture to make decision regarding extubation without reintubation. Discussed with family member daughter, palliative care wallpaper remover steam of , and [employer] at bedside. Physician Monica Maxwell MD Jun 24, 2016 15:08
[2016-06-24] MEDS: FLUCONAZOLE/NACL 400 MG/200 ML IV SCH (15:26)
--- NOTE | 2016-06-24 16:15 | HHI.IDPN ---
Subjective Subjective Remarks Not improving neurologically CSF studies remain negative afebrile, but WBC are up to 24 K + diarrhea on vent FiO 2 35% Antibiotics azithro cefepime fluconazole Lines Line sites with no e.o infection Past Medical History dementia Allergies: Coded Allergies: Olanzapine (Verified Allergy, Unknown, UNKNOWN, 06/17/16) Objective . Vital Signs Date Time Temp Pulse Resp B/P Pulse Ox O2 Delivery O2 Flow Rate FiO2 06/24/16 14:00 71 06/24/16 12:00 35 06/24/16 12:00 99.7 62 19 107/57 97 06/24/16 12:00 62 06/24/16 11:36 99 35 06/24/16 10:00 55 06/24/16 08:00 99.2 60 21 124/59 99 06/24/16 08:00 51 06/24/16 08:00 35 06/24/16 07:59 99 35 06/24/16 06:00 57 06/24/16 04:06 99 35 06/24/16 04:00 52 06/24/16 04:00 35 06/24/16 04:00 98.5 52 22 133/60 99 06/24/16 02:00 56 06/24/16 01:03 100 35 06/24/16 00:00 58 06/24/16 00:00 35 06/24/16 00:00 98.7 58 22 137/61 100 06/23/16 22:14 100 35 06/23/16 22:00 59 06/23/16 20:00 63 06/23/16 20:00 98.8 63 22 139/64 100 06/23/16 20:00 35 06/23/16 19:27 99 35 06/23/16 18:00 73 06/23/16 06/23/16 06/24/16 15:00 23:00 07:00 Intake Total 1710 ml 1040 ml 1110 ml Output Total 1325 ml 900 ml 850 ml Balance 385 ml 140 ml 260 ml IV Total 1355 ml 603 ml 595 ml Tube Feeding 235 ml 377 ml 455 ml Other 120 ml 60 ml 60 ml Output Urine Total 1325 ml 900 ml 850 ml Tube Feeding Residual Discard 0 ml # Bowel Movements 1 1 1 . Laboratory Tests Test 06/23/16 06/24/16 03:42 04:26 White Blood Count 23.0 TH/MM3 24.1 TH/MM3 Red Blood Count 3.84 MIL/MM3 3.55 MIL/MM3 Hemoglobin 11.6 GM/DL 10.3 GM/DL Hematocrit 34.4 % 32.2 % Mean Corpuscular Volume 89.5 FL 90.8 FL Mean Corpuscular Hemoglobin 30.1 PG 29.1 PG Mean Corpuscular Hemoglobin 33.6 % 32.0 % Concent Red Cell Distribution Width 14.5 % 14.5 % Platelet Count 202 TH/MM3 182 TH/MM3 Mean Platelet Volume 9.8 FL 9.5 FL Neutrophils (%) (Auto) 92.9 % 84.4 % Lymphocytes (%) (Auto) 4.2 % 9.7 % Monocytes (%) (Auto) 2.7 % 5.6 % Eosinophils (%) (Auto) 0.0 % 0.1 % Basophils (%) (Auto) 0.2 % 0.2 % Neutrophils # (Auto) 21.4 TH/MM3 20.4 TH/MM3 Lymphocytes # (Auto) 1.0 TH/MM3 2.3 TH/MM3 Monocytes # (Auto) 0.6 TH/MM3 1.4 TH/MM3 Eosinophils # (Auto) 0.0 TH/MM3 0.0 TH/MM3 Basophils # (Auto) 0.0 TH/MM3 0.1 TH/MM3 CBC Comment AUTO DIFF AUTO DIFF Differential Total Cells 100 100 Counted Neutrophils % (Manual) 83 % 74 % Band Neutrophils % 6 % Lymphocytes % 6 % 14 % Monocytes % 5 % 6 % Neutrophils # (Manual) 20.5 TH/MM3 19.0 TH/MM3 Differential Comment FINAL DIFF FINAL DIFF MANUAL MANUAL Platelet Estimate NORMAL NORMAL Platelet Morphology Comment NORMAL NORMAL Red Cell Morphology Comment NORMAL NORMAL Eosinophils % 1 % Metamyelocytes 1 % Myelocytes 3 % Promyelocytes 1 % Laboratory Tests Test 06/23/16 06/23/16 06/24/16 03:42 19:55 04:26 Sodium Level 138 MEQ/L 140 MEQ/L Potassium Level 4.2 MEQ/L 4.1 MEQ/L Chloride Level 100 MEQ/L 103 MEQ/L Carbon Dioxide Level 29.6 MEQ/L 30.1 MEQ/L Anion Gap 8 MEQ/L 7 MEQ/L Blood Urea Nitrogen 24 MG/DL 24 MG/DL Creatinine 0.47 MG/DL 0.43 MG/DL Estimat Glomerular Filtration 131 ML/MIN 145 ML/MIN Rate Random Glucose 177 MG/DL 159 MG/DL Calcium Level 8.4 MG/DL 8.2 MG/DL Phosphorus Level 2.4 MG/DL 3.3 MG/DL 2.7 MG/DL Magnesium Level 1.9 MG/DL 1.9 MG/DL Lactic Acid Level 1.4 mmol/L Microbiology Date/Time Procedure Status Source Growth 06/23/16 09:07 Gram Stain - Final Resulted Cerebral Spinal Fluid Lumbar Puncture 06/23/16 09:07 CSF Culture - Preliminary Resulted Cerebral Spinal Fluid Lumbar Puncture NO GROWTH IN 24 HOURS. 06/23/16 09:07 Acid Fast Stain - Final Resulted Cerebral Spinal Fluid Lumbar Puncture NO ACID FAST BACILLI SEEN 06/23/16 09:07 Mycobacterial Culture Resulted Cerebral Spinal Fluid Lumbar Puncture Pending 06/23/16 09:07 Fungal Smear - Final Resulted Cerebral Spinal Fluid Lumbar Puncture NO FUNGAL ELEMENTS SEEN. 06/23/16 09:07 Fungal Culture Resulted Cerebral Spinal Fluid Lumbar Puncture Pending Imaging Last Impressions Lumbar Puncture Fluoroscopy 06/23/16 0600 Signed Impressions: Service Date/Time: Thursday, June 23, 2016 09:58 - CONCLUSION: Uncomplicated fluoroscopically guided lumbar puncture. Tony Burks MD Chest X-Ray 06/22/16 0600 Signed Impressions: Service Date/Time: Wednesday, June 22, 2016 05:16 - CONCLUSION: Improving right base consolidation or atelectasis. Tony Carroll MD Upper Extremity Ultrasound 06/22/16 0000 Signed Impressions: Service Date/Time: Wednesday, June 22, 2016 11:01 - CONCLUSION: Normal examination. Mary Thomas MD Lower Extremity Ultrasound 06/22/16 0000 Signed Impressions: Service Date/Time: Wednesday, June 22, 2016 10:44 - CONCLUSION: Normal examination. Mary Thomas MD Liver Ultrasound 06/20/16 0000 Signed Impressions: Service Date/Time: Monday, June 20, 2016 16:03 - CONCLUSION: 1. Hepatomegaly 2. Suspected small gallbladder polyp. 3. Right renal cyst and a minimally complex cyst seen at the left kidney. Tony Carroll MD Abdomen/Pelvis CT 06/19/16 0000 Signed Impressions: Service Date/Time: June 17:46 - CONCLUSION: Right ovarian cyst, uterine fibroid and right lower lobe infiltrate. K. Jasbir Shamlou, MD Brain MRI 06/18/16 0000 Signed Impressions: Service Date/Time: Saturday, June 18, 2016 16:34 - CONCLUSION: 1. No acute findings. Examination is within normal limits for age. No recent infarct, mass or abnormal enhancement postcontrast. Esteban Jeff MD Head CT 06/17/16 2209 Signed Impressions: Service Date/Time: Saturday, June 18, 2016 03:48 - CONCLUSION: No acute disease. Paras Saleem Jr., MD Physical Exam CONSTITUTIONAL/GENERAL: This is an obese elderly patient, in no apparent distress. TUBES/LINES/DRAINS: SKIN: No jaundice, rashes, or lesions.Skin temperature appropriate. Not diaphoretic. HEAD: Atraumatic. Normocephalic. EYES: Pupils equal and round and reactive. Extraocular motions intact. No scleral icterus. No injection or drainage. Fundi not examined. ENT: Hearing can not be assessed. Nose without bleeding or purulent drainage. Oraly intubated CARDIOVASCULAR: Regular rate and rhythm without murmurs, gallops, or rubs. No JVD. Peripheral pulses symmetric. RESPIRATORY/CHEST: Symmetric, unlabored respirations. Clear to auscultation. Breath sounds equal bilaterally. No wheezes, rales, or rhonchi. GASTROINTESTINAL: Abdomen soft, non-tender (no reaction to palpation), mildly distended. No hepato-splenomegaly, or palpable masses. No guarding. Bowel sounds present. GENITOURINARY: Without palpable bladder distension. Kay catheter in place. MUSCULOSKELETAL: Extremities without clubbing, cyanosis, or edema. No joint tenderness or effusion noted. No mottling or clubbing. LYMPHATICS: No palpable cervical or supraclavicular adenopathy. NEUROLOGICAL: Unresponsive; grimacing to pain w/d to pain PSYCHIATRIC: unable to assess Assessment & Plan Remarks Sepsis present on admission (fever, tachycardia, WBC 20K on admission) Acute metabolic encephalopathy: sepsis, - no e/o meningitis on CSF studies Aspiration pneumonia prior to admission. Underlying dementia Funguria Acute VDRF Low grade bacteremia 2/2 Corynebacterium JK - doubt clin significance likely contaminant as no foreign body infection Leukocytosis, leukemoid reaction Recs: Continue Azithro IV Continue Cefepime IV dc fluconazole IV ro C.diff chk sputum clx repeat CXR dw RN Milagros Fountain MD Jun 24, 2016 16:15
[2016-06-24] MEDS: SODIUM CHLOR 0.9% 1000 ML INJ 1,000 ML IV SCH (17:43)
[2016-06-24] MEDS: fentaNYL DRIP 250 ML IV SCH (18:39)
--- NOTE | 2016-06-24 18:45 | HHI.HCPN ---
Reason for visit a. To assist with evaluation and management of symptoms including: dyspnea, lethargy, weakness. b. To assist medical decision maker(s) with: better understanding of current medical conditions; weighing benefits/burdens of medical treatment options; making medical treatment decisions. . (DANIEL HARMON) Subjective/Interval History Patient seen and examined in ICU. Discussed with Dr. Evangelista. Daughter Kristyn and family chief science officer at bedside. Tmax 99.2. Tolerating CPAP. Vital signs stable. WBC remains elevated 24.1. CSF cultures no growth 24 hours, negative AFB and fungal. CSF glucose 110, otherwise negative. CSF Cryptococcus Ag and cytology pending. No new imaging. ID following with no evidence of meningitis, plan to continue azithromycin, cefepime, rule out C. Diff, check sputum culture and repeat chest xray. Palliative care will continue to follow. . Family/friend interactions Spoke with daughterKristyn at bedside. Dr. Evangelista also present. Reviewed negative CSF test results to date. She indicates additional family expected to arrive in the next 24 hours. I offered family meeting once family arrived, she feels this will be very important and will coordinate time/ date and let me know. . (DANIEL HARMON) Advance Directives Advance Directive Specifics Date completed: None. Health Care Surrogate(s): According to [place] statutes, health care proxy decision-making falls to the patient's spouse. . Documented care wishes: None. Significant change in goals: FULL CODE. Continue aggressive care for now. Will arrange family meeting in coming day(s) once additional family arrives. Daughter will coordinate with palliative care. . (DANIEL HARMON) Objective Vital Signs Date Time Temp Pulse Resp B/P Pulse Ox O2 Delivery O2 Flow Rate FiO2 06/24/16 16:15 100 45 06/24/16 16:00 69 06/24/16 16:00 45 06/24/16 16:00 99.0 69 24 133/62 99 06/24/16 14:00 71 06/24/16 12:00 35 06/24/16 12:00 99.7 62 19 107/57 97 06/24/16 12:00 62 06/24/16 11:36 99 35 06/24/16 10:00 55 06/24/16 08:00 99.2 60 21 124/59 99 06/24/16 08:00 51 06/24/16 08:00 35 06/24/16 07:59 99 35 06/24/16 06:00 57 06/24/16 04:06 99 35 06/24/16 04:00 52 06/24/16 04:00 35 06/24/16 04:00 98.5 52 22 133/60 99 06/24/16 02:00 56 06/24/16 01:03 100 35 06/24/16 00:00 58 06/24/16 00:00 35 06/24/16 00:00 98.7 58 22 137/61 100 06/23/16 22:14 100 35 06/23/16 22:00 59 06/23/16 20:00 63 06/23/16 20:00 98.8 63 22 139/64 100 06/23/16 20:00 35 06/23/16 19:27 99 35 Intake & Output 06/24/16 06/24/16 07:00 19:00 Intake Total 2150 ml 1341 ml Output Total 1750 ml 625 ml Balance 400 ml 716 ml IV Total 1198 ml 592 ml Tube Feeding 832 ml 569 ml Other 120 ml 180 ml Output Urine Total 1750 ml 625 ml Stool Total 0 ml Tube Feeding Residual Discard 0 ml 0 ml # Bowel Movements 1 0 Physical Exam CONSTITUTIONAL/GENERAL: This is an adequately nourished patient, sedated on mech vent. TUBES/LINES/DRAINS: ETT, OG, PIV left wrist, PIV left hand, Kay, podus boots. SKIN: No jaundice, rashes, or lesions. Ecchymoses on upper extremities. No wounds seen anteriorly. Skin temperature appropriate. Not diaphoretic. EYES: Eyes closed. Does not open to voice or painful stimuli. Squeezes eyes shut when I attempt to open for exam. ENT: Unable to assess hearing. Nose without bleeding or purulent drainage. Difficult to visualize throat due to tubes. CARDIOVASCULAR: Regular rate and rhythm without murmurs, gallops, or rubs. No JVD. Peripheral pulses symmetric. RESPIRATORY/CHEST: Symmetric, unlabored respirations on vent. Diminished breath sounds bilaterally. GASTROINTESTINAL: Abdomen soft, non-tender, nondistended. No guarding. Bowel sounds present. GENITOURINARY: Without palpable bladder distension. Kay catheter in place. MUSCULOSKELETAL: Extremities without clubbing, cyanosis, or edema. No mottling or clubbing. NEUROLOGICAL: off sedation. Does not open eyes to voice or exam. Withdraws to noxious stimuli. PSYCHIATRIC: off sedation, called. . (DANIEL HARMON) Diagnostic Tests Laboratory Laboratory Tests Test 06/22/16 06/23/16 06/23/16 06/23/16 04:12 03:42 09:07 19:55 White Blood Count 20.6 TH/MM3 23.0 TH/MM3 (4.0-11.0) (4.0-11.0) Red Blood Count 3.82 MIL/MM3 3.84 MIL/MM3 (4.00-5.30) (4.00-5.30) Hemoglobin 11.4 GM/DL 11.6 GM/DL (11.6-15.3) (11.6-15.3) Hematocrit 34.1 % 34.4 % (35.0-46.0) (35.0-46.0) Mean Corpuscular Volume 89.4 FL 89.5 FL (80.0-100.0) (80.0-100.0) Mean Corpuscular Hemoglobin 29.9 PG 30.1 PG (27.0-34.0) (27.0-34.0) Mean Corpuscular Hemoglobin 33.4 % 33.6 % Concent (32.0-36.0) (32.0-36.0) Red Cell Distribution Width 14.8 % 14.5 % (11.6-17.2) (11.6-17.2) Platelet Count 203 TH/MM3 202 TH/MM3 (150-450) (150-450) Mean Platelet Volume 10.2 FL 9.8 FL (7.0-11.0) (7.0-11.0) Sodium Level 138 MEQ/L 138 MEQ/L (136-145) (136-145) Potassium Level 4.5 MEQ/L 4.2 MEQ/L (3.5-5.1) (3.5-5.1) Chloride Level 102 MEQ/L 100 MEQ/L (98-107) (98-107) Carbon Dioxide Level 28.8 MEQ/L 29.6 MEQ/L (21.0-32.0) (21.0-32.0) Anion Gap 7 MEQ/L (5-15) 8 MEQ/L (5-15) Blood Urea Nitrogen 28 MG/DL (7-18) 24 MG/DL (7-18) Creatinine 0.57 MG/DL 0.47 MG/DL (0.50-1.00) (0.50-1.00) Estimat Glomerular Filtration 105 ML/MIN 131 ML/MIN Rate (>89) (>89) Random Glucose 209 MG/DL 177 MG/DL (74-106) (74-106) Calcium Level 8.4 MG/DL 8.4 MG/DL (8.5-10.1) (8.5-10.1) Phosphorus Level 2.4 MG/DL 2.4 MG/DL 3.3 MG/DL (2.5-4.9) (2.5-4.9) (2.5-4.9) Magnesium Level 1.9 MG/DL 1.9 MG/DL (1.5-2.5) (1.5-2.5) Neutrophils (%) (Auto) 92.9 % (16.0-70.0) Lymphocytes (%) (Auto) 4.2 % (9.0-44.0) Monocytes (%) (Auto) 2.7 % (0.0-8.0) Eosinophils (%) (Auto) 0.0 % (0.0-4.0) Basophils (%) (Auto) 0.2 % (0.0-2.0) Neutrophils # (Auto) 21.4 TH/MM3 (1.8-7.7) Lymphocytes # (Auto) 1.0 TH/MM3 (1.0-4.8) Monocytes # (Auto) 0.6 TH/MM3 (0-0.9) Eosinophils # (Auto) 0.0 TH/MM3 (0-0.4) Basophils # (Auto) 0.0 TH/MM3 (0-0.2) CBC Comment AUTO DIFF Differential Total Cells 100 Counted Neutrophils % (Manual) 83 % (16-70) Band Neutrophils % 6 % (0-6) Lymphocytes % 6 % (9-44) Monocytes % 5 % (0-8) Neutrophils # (Manual) 20.5 TH/MM3 (1.8-7.7) Differential Comment FINAL DIFF MANUAL Platelet Estimate NORMAL (NORMAL) Platelet Morphology Comment NORMAL (NORMAL) Red Cell Morphology Comment NORMAL (NORMAL) CSF Volume (Tube 1) 2.0 ML CSF Supernatant Color (tube 1) CLEAR (CLEAR) CSF Gross Blood (Tube 1) 0 (0) CSF WBC (Tube 1) 2 /MM3 (0-10) CSF RBC (Tube 1) 29 /MM3 (NONE) CSF Volume (Tube 2) 2.0 ML CSF Supernatant Color (tube 2) CLEAR (CLEAR) CSF Gross Blood (Tube 2) 0 (0) CSF Volume (Tube 3) 2.0 ML CSF Supernatant Color (tube 3) CLEAR (CLEAR) CSF Gross Blood (Tube 3) 0 (0) CSF Volume (Tube 4) 3.5 ML CSF Supernatant Color (tube 4) CLEAR (CLEAR) CSF Gross Blood (Tube 4) 0 (0) CSF Neutrophils 50 % CSF Lymphocytes 21 % CSF Monocytes 29 % CSF Glucose 110 MG/DL (40-80) CSF Total Protein 35.0 MG/DL (15.0-45.0) Herpes Simplex Virus I DNA Negative (PCR) (Negative) Herpes Simplex Virus II DNA Negative (PCR) (Negative) Test 06/24/16 04:26 White Blood Count 24.1 TH/MM3 (4.0-11.0) Red Blood Count 3.55 MIL/MM3 (4.00-5.30) Hemoglobin 10.3 GM/DL (11.6-15.3) Hematocrit 32.2 % (35.0-46.0) Mean Corpuscular Volume 90.8 FL (80.0-100.0) Mean Corpuscular Hemoglobin 29.1 PG (27.0-34.0) Mean Corpuscular Hemoglobin 32.0 % Concent (32.0-36.0) Red Cell Distribution Width 14.5 % (11.6-17.2) Platelet Count 182 TH/MM3 (150-450) Mean Platelet Volume 9.5 FL (7.0-11.0) Neutrophils (%) (Auto) 84.4 % (16.0-70.0) Lymphocytes (%) (Auto) 9.7 % (9.0-44.0) Monocytes (%) (Auto) 5.6 % (0.0-8.0) Eosinophils (%) (Auto) 0.1 % (0.0-4.0) Basophils (%) (Auto) 0.2 % (0.0-2.0) Neutrophils # (Auto) 20.4 TH/MM3 (1.8-7.7) Lymphocytes # (Auto) 2.3 TH/MM3 (1.0-4.8) Monocytes # (Auto) 1.4 TH/MM3 (0-0.9) Eosinophils # (Auto) 0.0 TH/MM3 (0-0.4) Basophils # (Auto) 0.1 TH/MM3 (0-0.2) CBC Comment AUTO DIFF Differential Total Cells 100 Counted Neutrophils % (Manual) 74 % (16-70) Lymphocytes % 14 % (9-44) Monocytes % 6 % (0-8) Eosinophils % 1 % (0-4) Neutrophils # (Manual) 19.0 TH/MM3 (1.8-7.7) Metamyelocytes 1 % (0-1) Myelocytes 3 % (0-0) Promyelocytes 1 % (0-0) Differential Comment FINAL DIFF MANUAL Platelet Estimate NORMAL (NORMAL) Platelet Morphology Comment NORMAL (NORMAL) Red Cell Morphology Comment NORMAL (NORMAL) Sodium Level 140 MEQ/L (136-145) Potassium Level 4.1 MEQ/L (3.5-5.1) Chloride Level 103 MEQ/L (98-107) Carbon Dioxide Level 30.1 MEQ/L (21.0-32.0) Anion Gap 7 MEQ/L (5-15) Blood Urea Nitrogen 24 MG/DL (7-18) Creatinine 0.43 MG/DL (0.50-1.00) Estimat Glomerular Filtration 145 ML/MIN Rate (>89) Random Glucose 159 MG/DL (74-106) Lactic Acid Level 1.4 mmol/L (0.4-2.0) Calcium Level 8.2 MG/DL (8.5-10.1) Phosphorus Level 2.7 MG/DL (2.5-4.9) Magnesium Level 1.9 MG/DL (1.5-2.5) (DANIEL HARMON) Result Diagram: 06/24/166 06/24/166 Microbiology Microbiology Date/Time Procedure Status Source Growth 06/23/16 09:07 Gram Stain - Final Resulted Cerebral Spinal Fluid Lumbar Puncture 06/23/16 09:07 CSF Culture - Preliminary Resulted Cerebral Spinal Fluid Lumbar Puncture NO GROWTH IN 24 HOURS. 06/23/16 09:07 Acid Fast Stain - Final Resulted Cerebral Spinal Fluid Lumbar Puncture NO ACID FAST BACILLI SEEN 06/23/16 09:07 Mycobacterial Culture Resulted Cerebral Spinal Fluid Lumbar Puncture Pending 06/23/16 09:07 Fungal Smear - Final Resulted Cerebral Spinal Fluid Lumbar Puncture NO FUNGAL ELEMENTS SEEN. 06/23/16 09:07 Fungal Culture Resulted Cerebral Spinal Fluid Lumbar Puncture Pending Imaging Last Impressions Lumbar Puncture Fluoroscopy 06/23/16 06 Signed Impressions: Service Date/Time: Thursday, June 23, 2016 09:58 - CONCLUSION: Uncomplicated fluoroscopically guided lumbar puncture. Tony Burks MD Chest X-Ray 06/22/16 06 Signed Impressions: Service Date/Time: Wednesday, June 22, 2016 05:16 - CONCLUSION: Improving right base consolidation or atelectasis. Tony Carroll MD Upper Extremity Ultrasound 06/22/16 0000 Signed Impressions: Service Date/Time: Wednesday, June 22, 2016 11:01 - CONCLUSION: Normal examination. Mary Thomas MD Lower Extremity Ultrasound 06/22/16 0000 Signed Impressions: Service Date/Time: Wednesday, June 22, 2016 10:44 - CONCLUSION: Normal examination. Mary Thomas MD Liver Ultrasound 06/20/16 0000 Signed Impressions: Service Date/Time: Monday, June 20, 2016 16:03 - CONCLUSION: 1. Hepatomegaly 2. Suspected small gallbladder polyp. 3. Right renal cyst and a minimally complex cyst seen at the left kidney. Tony Carroll MD Abdomen/Pelvis CT 06/19/16 0000 Signed Impressions: Service Date/Time: June 17:46 - CONCLUSION: Right ovarian cyst, uterine fibroid and right lower lobe infiltrate. KJose Raygoza MD Brain MRI 06/18/16 0000 Signed Impressions: Service Date/Time: Saturday, June 18, 2016 16:34 - CONCLUSION: 1. No acute findings. Examination is within normal limits for age. No recent infarct, mass or abnormal enhancement postcontrast. Esteban Jeff MD Head CT 06/17/16 976 Signed Impressions: Service Date/Time: Saturday, June 18, 2016 03:48 - CONCLUSION: No acute disease. Paras Saleem Jr., MD Procedures * 06/23/16 lumbar puncture * 06/17/16 intubated . (DANIEL HARMON) Assessment and Plan Disease Oriented Problem List: (1) Respiratory failure (2) Sepsis (3) Pneumonia Symptom Scale: (1) Weakness 0-10 Scale: Unable to quantify (2) Dyspnea 0-10 Scale: Unable to quantify (3) Lethargy 0-10 Scale: Unable to quantify Pertinent Non-Medical Issues Psychosocial: . Spiritual: Unknown. Legal: Notes indicate patient may have written advance directives. Will request copies. Patient is incapacitated to make her own health care decisions. If no written advance directives, according to [place] statutes health care proxy decision-making would fall to the patient's spouse. Ethical issues impacting care: No known concerns at this time. . Important Contacts * Kaleb Busby, spouse: [phone] or [phone] . Prognosis Unable to adequately prognosticate at this time given pending test results. Patient is critically ill in ICU. . Code Status: Full Code Plan * Patient is incapacitated to make her own health care decisions. If no written advance directives, according to [place] statutes health care proxy decision-making would fall to the patient's spouse. * FULL CODE * 06/24/16 - Spoke with daughter, Kristyn at bedside. Dr. Evangelista also present. Reviewed negative CSF test results to date. She indicates additional family expected to arrive in the next 24 hours. I offered family meeting once family arrived, she feels this will be very important and will coordinate time/ date and let me know. * SYMPTOMS: Dyspnea: on mechanical ventilation. Was emergently intubated on 06/17 due to inability to protect airway. Lethargy: possible secondary to dementia and/or infection vs. other etiology, LP pending. Off sedation, not following commands or opening eyes. Weakness: secondary to infection, repeat hospitalization. Will require ongoing PT. No new medication recommendations at this time. * Palliative care will continue to follow throughout hospital course to assist with symptom management and clarification of goals as needed. . (DANIEL HRAMON) Attestation To help prompt me to consider important information that might be impacting today's encounter and assessment, information from prior notes written by myself or my colleagues may have been "brought forward" into today's note. My signature on this note, however, is an attestation that I personally performed the exam, history, and/or decision-making noted today, and, unless otherwise indicated, the interactions with patient, family, and staff as well as the review of records all occurred today. I also attest that the listed assessment and stated plan reflect my best clinical judgment today based on the combination of historical information, prior notes, and today's exam/ interactions. When time spent is documented, it refers only to time spent today by the signer, or if indicated, combined time spent today by collaborating physician/nurse practitioner. (DANIEL HARMON) Collaborating MD Comments . Chart reviewed. Cased discussed with palliative care [employer]STRU[employer]. Above [employer] note reviewed and I concur. . (Aaron Pierce MD) DANIEL HARMON Jun 24, 2016 18:45 Aaron Pierce MD August 11, 2016 14:54
--- NOTE | 2016-06-24 20:52 | HHI.PR ---
Review/Management Diagnosis 1. Encephalopathy. 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 2. Respiratory failure. 3. Hypertension. 4. Elevated liver enzymes. 5. Sepsis. 6. Seizure disorder/ non-convulsive - Electroencephalogram; abnormal electroencephalogram with background sharp waves which maybe epileptogenic - Decorticate posturing Plan 1. Neuro checks q one hourly. 2. Awaiting lumbar puncture results . 3. Deep venous thrombosis prophylaxis. 4. Seizure precautions 5. Keppra 1000mg Q12h 6. Follow up EEG next am Diagnosis/Plan: Subjective Subjective Comments Patient is sedated and intubated No change in neurologic status s/p LP, awaiting results Elevated WBC, trending up EEG slowing with sharp waves, may be epileptogenic Currently on Keppra 1gm bid No reported clinical seizures Active Medications Current Medications Medications (Trade) Dose Ordered Sig/Louise Route Start Time Stop Time Status Last Admin (NS Flush) 2 ml UNSCH PRN .XX 06/18/16 00:00 06/22/16 21:00 (NS Flush) 2 ml BID .XX 06/18/16 09:00 06/24/16 08:30 (Tylenol) 650 mg Q6H PRN PO 06/18/16 00:00 Hold (Morphine Inj) 2 mg Q2H PRN IV 06/18/16 00:00 06/24/16 17:12 (Pepcid Inj) 20 mg Q12HR IV PUSH 06/18/16 09:00 06/24/16 08:31 (Tears Naturale Opth Soln) 1 drop TID EACH EYE 06/18/16 09:00 06/24/16 17:11 (Zofran Inj) 4 mg Q6H PRN IV 06/18/16 00:00 (Reglan Inj) 10 mg Q6H PRN IV 06/18/16 00:00 (Lovenox Inj) 40 mg Q24H SQ 06/18/16 00:00 06/18/16 23:12 Miscellaneous Information 1 Q361D XX 06/18/16 00:00 (Chlorhexidine 2% Cloth) Taper DAILY@04 TOP 06/18/16 04:00 06/14/17 03:59 06/24/16 01:28 Chlorhexidine Gluconate 3 pack 3 pack UNSCH PRN TOP 06/18/16 00:00 (Zithromax Inj/ NS 250 ml Inj) 250 ml @ 250 mls/hr Q24H IV 06/18/16 23:00 06/24/16 01:26 (SoluMEDROL INJ) 40 mg Q12H IV 06/18/16 00:00 06/24/16 12:23 (Beneprotein Powder) 2 pack TID G-TUBE 06/18/16 09:00 06/24/16 17:29 (Colace) 100 mg Q12H G-TUBE 06/18/16 03:00 06/24/16 15:26 (Norvasc) 10 mg DAILY PO 06/18/16 09:00 06/24/16 08:31 (Dulcolax Supp) 10 mg DAILY PRN RECTAL 06/18/16 05:15 (Plavix) 75 mg DAILY PO 06/18/16 09:00 Hold 06/18/16 08:14 (Ativan) 1 mg Q8H PRN PO 06/18/16 05:15 (Theragran M Tab) 1 tab DAILY PO 06/18/16 09:00 06/24/16 08:31 Lisinopril 40 mg 40 mg DAILY PO 06/18/16 09:00 06/24/16 08:31 (Keppra 1000 Mg Inj) 100 ml @ 400 mls/hr Q12HR IV 06/20/16 09:00 06/24/16 08:30 (D50w (Vial) Inj) 25 ml UNSCH PRN IV PUSH 06/20/16 09:00 (Glucagon Inj) 1 mg UNSCH PRN OTHER 06/20/16 09:00 Insulin Human Regular 1 1 Q6H SQ 06/20/16 09:00 06/24/16 15:26 Potassium Chloride 100 ml @ 50 mls/hr Q2H PRN IV 06/20/16 09:30 Potassium Chloride 100 ml @ 50 mls/hr Q2H PRN IV 06/20/16 09:30 Potassium Chloride 100 ml @ 25 mls/hr UNSCH PRN IV 06/20/16 09:30 Potassium Chloride 100 ml @ 50 mls/hr Q2H PRN IV 06/20/16 09:30 (Magnesium Sulfate Inj/NS Inj) 100 ml @ 50 mls/hr UNSCH PRN IV 06/20/16 09:30 Magnesium Oxide 800 mg 800 mg UNSCH PRN PO 06/20/16 09:30 (Magnesium Sulfate Inj/NS Inj) 100 ml @ 50 mls/hr UNSCH PRN IV 06/20/16 09:30 Potassium Phosphate 2000 mg 2,000 mg Q4H PRN PO 06/20/16 09:30 (Sodium Phosphate Inj/NS 250 ml Inj) 250 ml @ 42 mls/hr UNSCH PRN IV 06/20/16 09:30 06/23/16 10:16 Potassium Phosphate 2000 mg 2,000 mg UNSCH PRN PO/TUBE 06/20/16 09:30 Potassium Phosphate 30 mmol/ Sodium Chloride 260 ml @ 42 mls/hr UNSCH PRN IV 06/20/16 09:30 Sodium Chloride 1,000 ml @ 50 mls/hr Q20H IV 06/20/16 09:30 06/24/16 17:43 Fentanyl Citrate 250 ml @ 0 mls/hr TITRATE IV 06/20/16 17:45 06/24/16 18:39 (Maxipime Inj/NS Inj) 100 ml @ 200 mls/hr Q8H IV 06/21/16 08:00 06/24/16 17:11 Allergies Allergies Coded Allergies Olanzapine (Verified Allergy, Unknown, UNKNOWN, 06/17/16) Exam I&O / VS 06/23/16 06/23/16 06/24/16 15:00 23:00 07:00 Intake Total 1710 ml 1040 ml 1110 ml Output Total 1325 ml 900 ml 850 ml Balance 385 ml 140 ml 260 ml IV Total 1355 ml 603 ml 595 ml Tube Feeding 235 ml 377 ml 455 ml Other 120 ml 60 ml 60 ml Output Urine Total 1325 ml 900 ml 850 ml Tube Feeding Residual Discard 0 ml # Bowel Movements 1 1 1 Vital Signs Date Time Temp Pulse Resp B/P Pulse Ox O2 Delivery O2 Flow Rate FiO2 06/24/16 18:34 45 06/24/16 18:00 92 06/24/16 16:15 100 45 06/24/16 16:00 69 06/24/16 16:00 45 06/24/16 16:00 99.0 69 24 133/62 99 06/24/16 14:00 71 06/24/16 12:00 35 06/24/16 12:00 99.7 62 19 107/57 97 06/24/16 12:00 62 06/24/16 11:36 99 35 06/24/16 10:00 55 06/24/16 08:00 99.2 60 21 124/59 99 06/24/16 08:00 51 06/24/16 08:00 35 06/24/16 07:59 99 35 06/24/16 06:00 57 06/24/16 04:06 99 35 06/24/16 04:00 52 06/24/16 04:00 35 06/24/16 04:00 98.5 52 22 133/60 99 06/24/16 02:00 56 06/24/16 01:03 100 35 06/24/16 00:00 58 06/24/16 00:00 35 06/24/16 00:00 98.7 58 22 137/61 100 06/23/16 22:14 100 35 06/23/16 22:00 59 Exam Comments GENERAL: The patient is sedated and ventilated nonverbal, once reported spontaneous eye opening well-developed, well-nourished, HEENT: head atraumatic, normocephalic. Eyes no gaze deviation. No injection on eyes. NECK: Stiff positive for neck rigidity. CARDIOVASCULAR SYSTEM: Regular rate and rhythm. No murmurs. RESPIRATORY: Clear to auscultation and no wheezes. MUSCULOSKELETAL: No cyanosis or edema. EXTREMITIES: Stiff extremities. NEUROLOGIC: Vented and sedated. Positive for neck stiffness. No gaze deviation. Pupils 2 mm bilateral symmetrical, sluggishly reacting to light. Patient attains what looks like a decorticate posture, no abnormal movements; LE . Reflexes 2+ upper extremities 1+ bilateral ankle plantar bilateral upgoing. No clonus. Objective Radiology Results Last 72 hours Impressions Lumbar Puncture Fluoroscopy 06/23/16 06 Signed Impressions: Service Date/Time: Thursday, June 23, 2016 09:58 - CONCLUSION: Uncomplicated fluoroscopically guided lumbar puncture. Tony Burks MD Chest X-Ray 06/22/16 06 Signed Impressions: Service Date/Time: Wednesday, June 22, 2016 05:16 - CONCLUSION: Improving right base consolidation or atelectasis. Tony Carroll MD Upper Extremity Ultrasound 06/22/16 0000 Signed Impressions: Service Date/Time: Wednesday, June 22, 2016 11:01 - CONCLUSION: Normal examination. Mary Thomas MD Lower Extremity Ultrasound 06/22/16 0000 Signed Impressions: Service Date/Time: Wednesday, June 22, 2016 10:44 - CONCLUSION: Normal examination. Mary Thomas MD Micro and Labs Laboratory Tests Test 06/24/16 04:26 White Blood Count 24.1 Red Blood Count 3.55 Hemoglobin 10.3 Hematocrit 32.2 Mean Corpuscular Volume 90.8 Mean Corpuscular Hemoglobin 29.1 Mean Corpuscular Hemoglobin 32.0 Concent Red Cell Distribution Width 14.5 Platelet Count 182 Mean Platelet Volume 9.5 Neutrophils (%) (Auto) 84.4 Lymphocytes (%) (Auto) 9.7 Monocytes (%) (Auto) 5.6 Eosinophils (%) (Auto) 0.1 Basophils (%) (Auto) 0.2 Neutrophils # (Auto) 20.4 Lymphocytes # (Auto) 2.3 Monocytes # (Auto) 1.4 Eosinophils # (Auto) 0.0 Basophils # (Auto) 0.1 CBC Comment AUTO DIFF Differential Total Cells 100 Counted Neutrophils % (Manual) 74 Lymphocytes % 14 Monocytes % 6 Eosinophils % 1 Neutrophils # (Manual) 19.0 Metamyelocytes 1 Myelocytes 3 Promyelocytes 1 Differential Comment FINAL DIFF MANUAL Platelet Estimate NORMAL Platelet Morphology Comment NORMAL Red Cell Morphology Comment NORMAL Sodium Level 140 Potassium Level 4.1 Chloride Level 103 Carbon Dioxide Level 30.1 Anion Gap 7 Blood Urea Nitrogen 24 Creatinine 0.43 Estimat Glomerular Filtration 145 Rate Random Glucose 159 Lactic Acid Level 1.4 Calcium Level 8.2 Phosphorus Level 2.7 Magnesium Level 1.9 Date/Time Procedure Status Source Growth 06/24/16 18:30 Gram Stain Received Sputum Endotracheal Pending 06/24/16 18:30 Sputum Culture Received Sputum Endotracheal Pending 06/23/16 09:07 Gram Stain - Final Resulted Cerebral Spinal Fluid Lumbar Puncture 06/23/16 09:07 CSF Culture - Preliminary Resulted Cerebral Spinal Fluid Lumbar Puncture NO GROWTH IN 24 HOURS. 06/23/16 09:07 Fungal Smear - Final Resulted Cerebral Spinal Fluid Lumbar Puncture NO FUNGAL ELEMENTS SEEN. 06/23/16 09:07 Fungal Culture Resulted Cerebral Spinal Fluid Lumbar Puncture Pending 06/23/16 09:07 Acid Fast Stain - Final Resulted Cerebral Spinal Fluid Lumbar Puncture NO ACID FAST BACILLI SEEN 06/23/16 09:07 Mycobacterial Culture Resulted Cerebral Spinal Fluid Lumbar Puncture Pending Jules Price MD Jun 24, 2016 20:52
[2016-06-24] MEDS: ENOXAPARIN SODIUM 40 MG/0.4 ML SYRINGE SQ SCH (22:24)
[2016-06-25] VITALS (20 sets, daily range): BP systolic 88–122; BP diastolic 42–59; PULSE 48–93; RESP 12–17; TEMP 99.2–99.8; O2SAT 96–100
[2016-06-25] MEDS: INSULIN NovoLIN REGULAR SUPPLEMENTAL SCALE SQ SCH ×4 (03:00→21:00)
[2016-06-25] MEDS: CHLORHEXIDINE GLUCONATE 2 % 1 PACK (2 CLOTHS) TOP SCH (04:00)
[2016-06-25] MEDS: DOCUSATE SODIUM 100 MG CAP G-TUBE SCH ×2 (05:16→15:00)
--- NOTE | 2016-06-25 05:44 | RADRPT ---
EXAM DATE/TIME: 06/25/2016 03:43 [facility] COMPARISON: CHEST SINGLE AP, June 22, 2016, 5:16. INDICATIONS : Shortness of breath. MEDICAL HISTORY : Hypercholesterolemia. Hypertension CVA. Dementia. Alzheimer's disease, coronary artery disease SURGICAL HISTORY : None. ENCOUNTER: Subsequent ACUITY: 1 week PAIN SCORE: Non-responsive. LOCATION: Bilateral chest FINDINGS: A single view of the chest demonstrates diminished lung volumes with bibasilar densities. The endotra cheal tube and nasogastric tube are unchanged. The cardiomediastinal contours are unremarkable. Osse ous structures are intact. CONCLUSION: 1. Diminished lung volumes and worsening bibasilar densities. Avi Aleman MD on June 25, 2016 at 5:41 Board Certified Radiologist. This report was verified electronically.
[2016-06-25 06:52] LABS: HEMATOCRIT 29.7 % (35.0-46.0); MEAN CELL VOLUME 89.7 FL (80.0-100.0); MEAN CORPUSCULAR HGB CONC 33.5 % (32.0-36.0); PLATELET COUNT 175 TH/MM3 (150-450); RED BLOOD COUNT 3.31 MIL/MM3 (4.00-5.30); RED CELL DISTRIBUTION WIDTH 14.7 % (11.6-17.2); REVIEW FLAG FINAL; WHITE BLOOD COUNT 20.5 TH/MM3 (4.0-11.0)
[2016-06-25 07:04] LABS: BICARBONATE 29.3 MEQ/L (21.0-32.0); POTASSIUM 4.5 MEQ/L (3.5-5.1)
[2016-06-25] MEDS: RESP: ALBUTEROL 2.5 MG/IPRATROPIUM 0.5 MG NEB (PRN) INH (07:31)
[2016-06-25] MEDS: levETIRAcetam 1000 MG INJ 100 ML IV SCH ×2 (08:32→21:51)
[2016-06-25] MEDS: ARTIFICIAL TEARS OPTH SOLN 15 ML BTL EACH EYE SCH ×3 (08:33→18:00)
[2016-06-25] MEDS: CEFEPIME INJ 2,000 MG in SODIUM CHLORIDE 0.9% INJ 100 ML IV SCH ×2 (08:33→16:00)
[2016-06-25] MEDS: LISINOPRIL 20 MG TAB PO SCH (08:33)
[2016-06-25] MEDS: FAMOTIDINE 20 MG/2 ML VIAL IV PUSH SCH ×2 (08:33→21:51)
[2016-06-25] MEDS: MULTIVITAMINS/MINERALS THERAPEUTIC TAB PO SCH (08:33)
[2016-06-25] MEDS: SODIUM CHLORIDE 0.9% FLUSH 10 ML FLUSH SCH ×2 (09:00→21:00)
[2016-06-25] MEDS: BENEPROTEIN POWDER 1 PACK G-TUBE SCH ×3 (09:00→18:00)
[2016-06-25] MEDS: RESP: ALBUTEROL 2.5 MG/3 ML NEB (SCH) NEB ×3 (12:00→19:16)
[2016-06-25] MEDS: methylPREDNISolone SOD SUCC 40 MG/1 ML VIAL IV SCH (12:00)
[2016-06-25] MEDS: SODIUM CHLOR 0.9% 1000 ML INJ 1,000 ML IV SCH (13:16)
--- NOTE | 2016-06-25 13:49 | HHI.IDPN ---
Subjective Subjective Remarks Not improving neurologically CSF studies remain negative + low grade fevers, WBC are down to 20 K no diarrhea on vent FiO 2 35% dw sister, dgtrs at b/s: pt remains in current neurological condision x 6 wks Pt is Antibiotics azithro cefepime high dose sterroids Lines Line sites with no e.o infection Past Medical History dementia Allergies: Coded Allergies: Olanzapine (Verified Allergy, Unknown, UNKNOWN, 06/17/16) Objective . Vital Signs Date Time Temp Pulse Resp B/P Pulse Ox O2 Delivery O2 Flow Rate FiO2 06/25/16 12:01 96 40 06/25/16 10:00 51 06/25/16 08:03 99.5 48 12 122/58 98 06/25/16 08:03 45 06/25/16 08:00 51 06/25/16 07:58 99.5 48 12 122/58 98 06/25/16 07:32 100 40 06/25/16 06:00 51 06/25/16 04:46 100 40 06/25/16 04:00 45 06/25/16 04:00 99.5 60 12 122/59 98 06/25/16 04:00 60 06/25/16 02:25 100 40 06/25/16 02:00 53 06/25/16 00:00 45 06/25/16 00:00 54 06/25/16 00:00 99.2 54 12 106/55 99 06/24/16 22:00 63 06/24/16 20:02 98 40 06/24/16 20:00 98.7 100 13 126/77 98 06/24/16 20:00 100 06/24/16 20:00 45 06/24/16 18:34 45 06/24/16 18:00 92 06/24/16 16:15 100 45 06/24/16 16:00 69 06/24/16 16:00 45 06/24/16 16:00 99.0 69 24 133/62 99 06/24/16 14:00 71 06/24/16 06/24/16 06/25/16 15:00 23:00 07:00 Intake Total 1341 ml 1322 ml 1282 ml Output Total 625 ml 650 ml 650 ml Balance 716 ml 672 ml 632 ml IV Total 592 ml 704 ml 729 ml Tube Feeding 569 ml 468 ml 403 ml Other 180 ml 150 ml 150 ml Output Urine Total 625 ml 650 ml 650 ml Stool Total 0 ml Tube Feeding Residual Discard 0 ml 0 ml # Bowel Movements 0 . Laboratory Tests Test 06/24/16 06/25/16 04:26 05:58 White Blood Count 24.1 TH/MM3 20.5 TH/MM3 Red Blood Count 3.55 MIL/MM3 3.31 MIL/MM3 Hemoglobin 10.3 GM/DL 9.9 GM/DL Hematocrit 32.2 % 29.7 % Mean Corpuscular Volume 90.8 FL 89.7 FL Mean Corpuscular Hemoglobin 29.1 PG 30.0 PG Mean Corpuscular Hemoglobin 32.0 % 33.5 % Concent Red Cell Distribution Width 14.5 % 14.7 % Platelet Count 182 TH/MM3 175 TH/MM3 Mean Platelet Volume 9.5 FL 9.7 FL Neutrophils (%) (Auto) 84.4 % Lymphocytes (%) (Auto) 9.7 % Monocytes (%) (Auto) 5.6 % Eosinophils (%) (Auto) 0.1 % Basophils (%) (Auto) 0.2 % Neutrophils # (Auto) 20.4 TH/MM3 Lymphocytes # (Auto) 2.3 TH/MM3 Monocytes # (Auto) 1.4 TH/MM3 Eosinophils # (Auto) 0.0 TH/MM3 Basophils # (Auto) 0.1 TH/MM3 CBC Comment AUTO DIFF Differential Total Cells 100 Counted Neutrophils % (Manual) 74 % Lymphocytes % 14 % Monocytes % 6 % Eosinophils % 1 % Neutrophils # (Manual) 19.0 TH/MM3 Metamyelocytes 1 % Myelocytes 3 % Promyelocytes 1 % Differential Comment FINAL DIFF MANUAL Platelet Estimate NORMAL Platelet Morphology Comment NORMAL Red Cell Morphology Comment NORMAL Laboratory Tests Test 06/23/16 06/24/16 06/25/16 19:55 04:26 05:58 Phosphorus Level 3.3 MG/DL 2.7 MG/DL 2.6 MG/DL Sodium Level 140 MEQ/L 138 MEQ/L Potassium Level 4.1 MEQ/L 4.5 MEQ/L Chloride Level 103 MEQ/L 102 MEQ/L Carbon Dioxide Level 30.1 MEQ/L 29.3 MEQ/L Anion Gap 7 MEQ/L 7 MEQ/L Blood Urea Nitrogen 24 MG/DL 30 MG/DL Creatinine 0.43 MG/DL 0.43 MG/DL Estimat Glomerular Filtration 145 ML/MIN 145 ML/MIN Rate Random Glucose 159 MG/DL 172 MG/DL Lactic Acid Level 1.4 mmol/L Calcium Level 8.2 MG/DL 8.2 MG/DL Magnesium Level 1.9 MG/DL 2.0 MG/DL Microbiology Date/Time Procedure Status Source Growth 06/23/16 09:07 Gram Stain - Final Resulted Cerebral Spinal Fluid Lumbar Puncture 06/23/16 09:07 CSF Culture - Preliminary Resulted Cerebral Spinal Fluid Lumbar Puncture NO GROWTH IN 48 HOURS. 06/23/16 09:07 Acid Fast Stain - Final Resulted Cerebral Spinal Fluid Lumbar Puncture NO ACID FAST BACILLI SEEN 06/23/16 09:07 Mycobacterial Culture Resulted Cerebral Spinal Fluid Lumbar Puncture Pending 06/23/16 09:07 Fungal Smear - Final Resulted Cerebral Spinal Fluid Lumbar Puncture NO FUNGAL ELEMENTS SEEN. 06/23/16 09:07 Fungal Culture Resulted Cerebral Spinal Fluid Lumbar Puncture Pending 06/24/16 18:30 Gram Stain - Final Resulted Sputum Endotracheal 06/24/16 18:30 Sputum Culture - Preliminary Resulted Sputum Endotracheal NO GROWTH IN 24 HOURS. Imaging Last Impressions Chest X-Ray 06/25/16599 Signed Impressions: Service Date/Time: Saturday, June 25, 2016 03:43 - CONCLUSION: 1. Diminished lung volumes and worsening bibasilar densities. Avi Aleman MD Lumbar Puncture Fluoroscopy 06/23/16 06 Signed Impressions: Service Date/Time: Thursday, June 23, 2016 09:58 - CONCLUSION: Uncomplicated fluoroscopically guided lumbar puncture. Tony Burks MD Upper Extremity Ultrasound 06/22/16 0000 Signed Impressions: Service Date/Time: Wednesday, June 22, 2016 11:01 - CONCLUSION: Normal examination. Mary Thomas MD Lower Extremity Ultrasound 06/22/16 0000 Signed Impressions: Service Date/Time: Wednesday, June 22, 2016 10:44 - CONCLUSION: Normal examination. Mary Thomas MD Liver Ultrasound 06/20/16 Signed Impressions: Service Date/Time: Monday, June 20, 2016 16:03 - CONCLUSION: 1. Hepatomegaly 2. Suspected small gallbladder polyp. 3. Right renal cyst and a minimally complex cyst seen at the left kidney. Tony Carroll MD Abdomen/Pelvis CT 06/19/16 0000 Signed Impressions: Service Date/Time: June 17:46 - CONCLUSION: Right ovarian cyst, uterine fibroid and right lower lobe infiltrate. KJose Raygoza MD Brain MRI 06/18/16 0000 Signed Impressions: Service Date/Time: Saturday, June 18, 2016 16:34 - CONCLUSION: 1. No acute findings. Examination is within normal limits for age. No recent infarct, mass or abnormal enhancement postcontrast. Esteban Jeff MD Head CT 06/17/16 2209 Signed Impressions: Service Date/Time: Saturday, June 18, 2016 03:48 - CONCLUSION: No acute disease. Paras Saleem Jr., MD Physical Exam CONSTITUTIONAL/GENERAL: This is an obese elderly patient, in no apparent distress. TUBES/LINES/DRAINS: SKIN: No jaundice, rashes, or lesions.Skin temperature appropriate. Not diaphoretic. HEAD: Atraumatic. Normocephalic. EYES: Pupils equal and round and reactive. Extraocular motions intact. No scleral icterus. No injection or drainage. Fundi not examined. ENT: Hearing can not be assessed. Nose without bleeding or purulent drainage. Oraly intubated CARDIOVASCULAR: Regular rate and rhythm without murmurs, gallops, or rubs. No JVD. Peripheral pulses symmetric. RESPIRATORY/CHEST: Symmetric, unlabored respirations. Clear to auscultation. Breath sounds equal bilaterally. No wheezes, rales, or rhonchi. GASTROINTESTINAL: Abdomen soft, non-tender (no reaction to palpation), mildly distended. No hepato-splenomegaly, or palpable masses. No guarding. Bowel sounds present. GENITOURINARY: Without palpable bladder distension. Kay catheter in place. MUSCULOSKELETAL: Extremities without clubbing, cyanosis, or edema. No joint tenderness or effusion noted. No mottling or clubbing. LYMPHATICS: No palpable cervical or supraclavicular adenopathy. NEUROLOGICAL: Unresponsive; grimacing to pain w/d to pain PSYCHIATRIC: unable to assess Assessment & Plan Remarks Sepsis present on admission (fever, tachycardia, WBC 20K on admission) Acute metabolic encephalopathy: sepsis, - no e/o meningitis on CSF studies Aspiration pneumonia prior to admission. Underlying dementia Funguria Acute VDRF Low grade bacteremia 2/2 Corynebacterium JK - doubt clin significance likely contaminant as no foreign body infection Leukocytosis, leukemoid reaction ? sterrioids contributing Diarrhea, abx associated - no diarrhea currently Recs: dc Azithro IV Continue Cefepime IV dc fluconazole IV ro C.diff if diarrhea resumes fu sputum clx clx untill final chk UA< C+S and blood clx dw family @ bs dw Dr Jean Carlos king RN Milagros Fountain MD Jun 25, 2016 13:49
--- NOTE | 2016-06-25 14:27 | HHI.CCPN ---
Subjective Remarks/Hospital Course 06/18: 70-year-old unfortunate female intermediate resident due to lack of capacity to live independently due to progressively worsening dementia. Patient was progressively getting more lethargic within last few days. She was also noted to be febrile. Per daughter patient baseline is between" sometimes she talks but doesn't make any sense" but sometimes just mumbles. She has also had some decreased by mouth intake. She was found more lethargic almost unresponsive and was transferred to emergency department. In the ED she was found not to be able to protect her airways and was intubated by ER attending. She was admitted to the ICU. 06/19: Patient remains sedated and mechanically ventilated. RASS score of -2. No acute events overnight. Tmax overnight of 100.2F. Review of records from [facility] admission on 05/06/16 patient was admitted due to fevers, rigors, dysuria however urine culture was negative. Blood cultures obtained during that admission were found to be intermittently positive however organisms were all different including staph epi and staph hominis and thought to be contaminants. CXR and head CT were negative. Flu A/B ags were negative. It was noted that the patient had been taking Zyprexa and that medication has been discontinued due to possible neuroleptic-related fever. Patient had also been taking Haldol prn as well as Effexor. Echocardiogram was negative no vegetations. 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 Pt also had elevated LFTs during that admission which trended down and biliary scan was negative. 06/20 Patient is intubated and sedated with Diprivan. Afebrile for LP today. 06/21 Tmax 99.6. Leukocytosis resolving. Liver enzymes are decreasing. The patient remains intubated and CPAP trials thus far unsuccessful. 06/22 Tmax 99.3. No change in neuro status. Patient was maintained on CPAP for approximately 12 hours yesterday. The patient white blood cell count has noted elevation today, will obtain venous Doppler ultrasound bilateral extremities to rule out thrombus. The patient continues on antibiotics per ID recommendations. 06/23: Leukocytosis worsening. Patient went to IR for lumbar puncture this a.m.. Patient is tolerated CPAP trials for greater than 24 hours plans to obtain a RSBI score and possible extubation this afternoon. 06/24: Afebrile .The patient has continued on CPAP greater than 48 hours. WBC count trending upward. Decision not to remove endotracheal tube, yesterday decided by and family with palliative care on board with a possibility of reintubation. Family considering goals of care at this time and wished to await results of lumbar puncture before decision to extubate the patient. 06/25: WBC count slightly lower today. Plan family meeting with palliative team this afternoon. The patient was placed back on the ventilator yesterday after becoming tachypnea and bradycardic. CSF fluid still preliminarily negative. Neurology consulted in regards to the no change in neuro status. Objective Vital Signs Date Time Temp Pulse Resp B/P Pulse Ox O2 Delivery O2 Flow Rate FiO2 06/25/16 12:01 96 40 06/25/16 10:00 51 06/25/16 08:03 99.5 12 122/58 Intake and Output 06/24/16 06/24/16 06/25/16 08:00 16:00 00:00 Intake Total 1110 ml 1341 ml 1322 ml Output Total 850.0 ml 625 ml 650 ml Balance 260.0 ml 716 ml 672 ml Result Diagram: 06/25/16 0558 06/25/16 0558 Imaging Last Impressions Abdomen/Pelvis CT 06/19/16 0000 Signed Impressions: Service Date/Time: June 17:46 - CONCLUSION: Right ovarian cyst, uterine fibroid and right lower lobe infiltrate. K. Jasbir Raygoza MD Chest X-Ray 06/18/16 0000 Signed Impressions: Service Date/Time: Saturday, June 18, 2016 05:42 - CONCLUSION: Repositioning of the endotracheal tube. New basilar consolidations. Paras Saleem Jr., MD Brain MRI 06/18/16 0000 Signed Impressions: Service Date/Time: Saturday, June 18, 2016 16:34 - CONCLUSION: 1. No acute findings. Examination is within normal limits for age. No recent infarct, mass or abnormal enhancement postcontrast. Esteban Jeff MD Head CT 06/17/16 [id number] Signed Impressions: Service Date/Time: Saturday, June 18, 2016 03:48 - CONCLUSION: No acute disease. Paras Saleem Jr., MD Objective Remarks GENERAL: Well-nourished, well-developed patient. SKIN: Warm and dry. HEAD: Normocephalic. EYES: No scleral icterus. No injection or drainage. NECK: Supple, trachea midline. No JVD or lymphadenopathy. CARDIOVASCULAR: Regular rate and rhythm without murmurs, gallops, or rubs. RESPIRATORY: Breath sounds equal bilaterally. No accessory muscle use. GASTROINTESTINAL: Abdomen soft, non-tender, nondistended. MUSCULOSKELETAL: No cyanosis, or edema. Multiple contractures noted. Neuro: GCS 6T unresponsive. A/P Assessment and Plan NEURO: AMS History of dementia Delirium - On Fentanyl infusion for sedation, daily sedation vacation -Discontinue fentanyl infusion while on CPAP trials - Neuro consulted- Dr. Price -EEG showed mod slowing with sharp waves which could be focus for seizures Continue with Keppra -06/[address] [id number] results RESP: Respiratory failure, now mechanically ventilated RLL infiltrate - Continue with vent support keep sat > 92% - ICU vent bundle, Bronchodilators-scheduled - Patient on mechanical ventilation restarted yesterday secondary to tachypnea -Maintain head of bed elevation 30 -Chest x-ray 06/22 improving right base consolidation or atelectasis CV: Hypertension -Monitor HR and BP keep MAP>65mmHg -On Lisinopril 40mg daily GI: -Elevated LFT's. - tube feeds with Jevity 1.5 lina at goal of 60 cc/hr, currently on hold for planned extubation - Colace for bowel regimen. Last BM 06/21/16 -CT abdomen/pelvis: Right ovarian cyst, uterine fibroid and right lower lobe infiltrate. Normal liver : Hypophosphatemia -Monitor renal function, I/O's, electrolytes replacement per protocol. -Decrease NS@50ml/hr HEME: Chronic Anemia, stable - Monitor CBC ID: Sepsis Funguria RLL infiltrate-resolved Persistent Leukocytosis - 06/17 BC: Pleomorphic GP rods / bottles- Likely contaminant - 06/17 UCx growing yeast, pneumococcal legionella negative -Continue with abx per ID (On vancomycin (06/18 -), cefepime (06/18 -), azithromycin (06/17 -), Diflucan (06/18 -) -WBC >23 ->24 ->20 today -06/23-LP performed, CSF cultures preliminarily negative ENDO: - Continue accuchecks - Novolin (low dose) SSI - TSH 0.221 PROPH: DVT PPX: TEDs, Lovenox GI PPX: Pepcid Level 3 Dispo: Family wishes to continue with palliative care for meeting to discuss goals of care, Dr. Fountain and [employer] at bedside. Physician Monica Maxwell MD Jun 25, 2016 14:27
[2016-06-25 15:44] LABS: BLOOD, URINE NEG (NEG); GLUCOSE,URINE NEG (NEG); HYALINE CAST, URINE 1 /lpf (RARE); KETONE, URINE NEG (NEG); MUCUS URINE FEW /lpf (OCC); NITRITE,URINE NEG (NEG); SQUAMOUS EPITHELIAL CELL URINE <1 /hpf (0-5); URINE COLOR YELLOW (YELLW/STRAW)
[2016-06-25 15:47] LABS: COMMENT (UR) CATH-CULT NOT IND; CULTURE IF INDICATED CATH CULTURE NOT IND
--- NOTE | 2016-06-25 16:17 | HHI.HCPN ---
Reason for visit a. To assist with evaluation and management of symptoms including: dyspnea, lethargy, weakness. b. To assist medical decision maker(s) with: better understanding of current medical conditions; weighing benefits/burdens of medical treatment options; making medical treatment decisions. . (DANIEL HARMON) Subjective/Interval History Patient seen and examined in ICU. Discussed with Dr. Evangelista and Dr. Fountain and nurse, Jessica. Per ID and Disciplinary Hearing Officer feel neurologic improvement is not related to infectious process, possible anoxic vs. other. They also feel prognosis for meaningful neurologic improvement is poor. Dr. Evangelista has requested neuro input. Patient will need trach and PEG if continued aggressive care is desired. Tmax 99.8. Now back on [facility] vent FiO2 40%, BP 92/58. WBC remains elevated 20.5. CSF studies negative to date. Cytology pending. Chest xray diminished lung volumes and worsening bibasilar densities. . Family/friend interactions Met with Kaleb (spouse), Doris (sister from [place]), Kalie (daughter from [place] and her Hernan, Kristyn (lives local), and Tara (daughter from [place]). Also present Yarelis Onofre, [employer] med student. Lengthy discussion reviewing hospital course, test results, prognosis (poor for meaningful recovery), CODE STATUS, options to continue aggressive care vs transition to comfort measures. Family is all in agreement to NO CODE status (DNR/ DNI if extubated), family is also in agreement that patient WOULD NOT want trach/PEG. They are not yet ready to transition to comfort measures only or withdrawal of life support. They would like additional input from neurology regarding whether or not any additional tests should be done, other potential differential diagnoses to be considered and neurologic prognosis. Will continue with current plan of care for now. Palliative care will attempt to speak with Dr. Price and follow up with family. . (DANIEL HARMON) Advance Directives Advance Directive Specifics Date completed: None. Health Care Surrogate(s): According to [place] statutes, health care proxy decision-making falls to the patient's spouse. . Documented care wishes: None. Significant change in goals: NO CODE. Family is certain patient would not want trach/PEG. They would like to speak with neuro regarding prognostication prior to making any further decisions. . (DANIEL HARMON) Objective Vital Signs Date Time Temp Pulse Resp B/P Pulse Ox O2 Delivery O2 Flow Rate FiO2 06/25/16 15:28 100 40 06/25/16 14:00 51 06/25/16 12:01 96 40 06/25/16 12:00 99.8 62 12 92/58 98 06/25/16 12:00 51 06/25/16 12:00 45 06/25/16 10:00 51 06/25/16 10:00 51 06/25/16 08:03 99.5 48 12 122/58 98 06/25/16 08:03 45 06/25/16 08:00 51 06/25/16 07:58 99.5 48 12 122/58 98 06/25/16 07:32 100 40 06/25/16 06:00 51 06/25/16 04:46 100 40 06/25/16 04:00 45 06/25/16 04:00 99.5 60 12 122/59 98 06/25/16 04:00 60 06/25/16 02:25 100 40 06/25/16 02:00 53 06/25/16 00:00 45 06/25/16 00:00 54 06/25/16 00:00 99.2 54 12 106/55 99 06/24/16 22:00 63 06/24/16 20:02 98 40 06/24/16 20:00 98.7 100 13 126/77 98 06/24/16 20:00 100 06/24/16 20:00 45 06/24/16 18:34 45 06/24/16 18:00 92 06/24/16 16:15 100 45 06/24/16 16:00 69 06/24/16 16:00 45 06/24/16 16:00 99.0 69 24 133/62 99 Intake & Output 06/25/16 06/25/16 07:00 19:00 Intake Total 2604 ml Output Total 1300 ml 0 ml Balance 1304 ml 0 ml IV Total 1433 ml Tube Feeding 871 ml Other 300 ml Output Urine Total 1300 ml Tube Feeding Residual Discard 0 ml 0 ml Physical Exam CONSTITUTIONAL/GENERAL: This is an adequately nourished patient, sedated on mech vent. TUBES/LINES/DRAINS: ETT, OG, PIV left wrist, PIV left hand, Kay, podus boots. SKIN: No jaundice, rashes, or lesions. Ecchymoses on upper extremities. No wounds seen anteriorly. Skin temperature appropriate. Not diaphoretic. EYES: Eyes closed. Does not open to voice or painful stimuli. Squeezes eyes shut when I attempt to open for exam. ENT: Unable to assess hearing. Nose without bleeding or purulent drainage. Difficult to visualize throat due to tubes. CARDIOVASCULAR: Regular rate and rhythm without murmurs, gallops, or rubs. No JVD. Peripheral pulses symmetric. RESPIRATORY/CHEST: Symmetric, unlabored respirations on vent. Diminished breath sounds bilaterally. GASTROINTESTINAL: Abdomen soft, non-tender, nondistended. No guarding. Bowel sounds present. GENITOURINARY: Without palpable bladder distension. Kay catheter in place. MUSCULOSKELETAL: Extremities without clubbing, cyanosis, or edema. No mottling or clubbing. NEUROLOGICAL: off sedation. Does not open eyes to voice or exam. Withdraws to noxious stimuli. PSYCHIATRIC: off sedation, called. . (DANIEL HARMONP-C) Diagnostic Tests Laboratory Laboratory Tests Test 06/23/16 06/23/16 06/23/16 06/24/16 03:42 09:07 19:55 04:26 White Blood Count 23.0 TH/MM3 24.1 TH/MM3 (4.0-11.0) (4.0-11.0) Red Blood Count 3.84 MIL/MM3 3.55 MIL/MM3 (4.00-5.30) (4.00-5.30) Hemoglobin 11.6 GM/DL 10.3 GM/DL (11.6-15.3) (11.6-15.3) Hematocrit 34.4 % 32.2 % (35.0-46.0) (35.0-46.0) Mean Corpuscular Volume 89.5 FL 90.8 FL (80.0-100.0) (80.0-100.0) Mean Corpuscular Hemoglobin 30.1 PG 29.1 PG (27.0-34.0) (27.0-34.0) Mean Corpuscular Hemoglobin 33.6 % 32.0 % Concent (32.0-36.0) (32.0-36.0) Red Cell Distribution Width 14.5 % 14.5 % (11.6-17.2) (11.6-17.2) Platelet Count 202 TH/MM3 182 TH/MM3 (150-450) (150-450) Mean Platelet Volume 9.8 FL 9.5 FL (7.0-11.0) (7.0-11.0) Neutrophils (%) (Auto) 92.9 % 84.4 % (16.0-70.0) (16.0-70.0) Lymphocytes (%) (Auto) 4.2 % 9.7 % (9.0-44.0) (9.0-44.0) Monocytes (%) (Auto) 2.7 % (0.0-8.0) 5.6 % (0.0-8.0) Eosinophils (%) (Auto) 0.0 % (0.0-4.0) 0.1 % (0.0-4.0) Basophils (%) (Auto) 0.2 % (0.0-2.0) 0.2 % (0.0-2.0) Neutrophils # (Auto) 21.4 TH/MM3 20.4 TH/MM3 (1.8-7.7) (1.8-7.7) Lymphocytes # (Auto) 1.0 TH/MM3 2.3 TH/MM3 (1.0-4.8) (1.0-4.8) Monocytes # (Auto) 0.6 TH/MM3 1.4 TH/MM3 (0-0.9) (0-0.9) Eosinophils # (Auto) 0.0 TH/MM3 0.0 TH/MM3 (0-0.4) (0-0.4) Basophils # (Auto) 0.0 TH/MM3 0.1 TH/MM3 (0-0.2) (0-0.2) CBC Comment AUTO DIFF AUTO DIFF Differential Total Cells 100 100 Counted Neutrophils % (Manual) 83 % (16-70) 74 % (16-70) Band Neutrophils % 6 % (0-6) Lymphocytes % 6 % (9-44) 14 % (9-44) Monocytes % 5 % (0-8) 6 % (0-8) Neutrophils # (Manual) 20.5 TH/MM3 19.0 TH/MM3 (1.8-7.7) (1.8-7.7) Differential Comment FINAL DIFF FINAL DIFF MANUAL MANUAL Platelet Estimate NORMAL NORMAL (NORMAL) (NORMAL) Platelet Morphology Comment NORMAL NORMAL (NORMAL) (NORMAL) Red Cell Morphology Comment NORMAL NORMAL (NORMAL) (NORMAL) Sodium Level 138 MEQ/L 140 MEQ/L (136-145) (136-145) Potassium Level 4.2 MEQ/L 4.1 MEQ/L (3.5-5.1) (3.5-5.1) Chloride Level 100 MEQ/L 103 MEQ/L (98-107) (98-107) Carbon Dioxide Level 29.6 MEQ/L 30.1 MEQ/L (21.0-32.0) (21.0-32.0) Anion Gap 8 MEQ/L (5-15) 7 MEQ/L (5-15) Blood Urea Nitrogen 24 MG/DL (7-18) 24 MG/DL (7-18) Creatinine 0.47 MG/DL 0.43 MG/DL (0.50-1.00) (0.50-1.00) Estimat Glomerular Filtration 131 ML/MIN 145 ML/MIN Rate (>89) (>89) Random Glucose 177 MG/DL 159 MG/DL (74-106) (74-106) Calcium Level 8.4 MG/DL 8.2 MG/DL (8.5-10.1) (8.5-10.1) Phosphorus Level 2.4 MG/DL 3.3 MG/DL 2.7 MG/DL (2.5-4.9) (2.5-4.9) (2.5-4.9) Magnesium Level 1.9 MG/DL 1.9 MG/DL (1.5-2.5) (1.5-2.5) CSF Volume (Tube 1) 2.0 ML CSF Supernatant Color (tube 1) CLEAR (CLEAR) CSF Gross Blood (Tube 1) 0 (0) CSF WBC (Tube 1) 2 /MM3 (0-10) CSF RBC (Tube 1) 29 /MM3 (NONE) CSF Volume (Tube 2) 2.0 ML CSF Supernatant Color (tube 2) CLEAR (CLEAR) CSF Gross Blood (Tube 2) 0 (0) CSF Volume (Tube 3) 2.0 ML CSF Supernatant Color (tube 3) CLEAR (CLEAR) CSF Gross Blood (Tube 3) 0 (0) CSF Volume (Tube 4) 3.5 ML CSF Supernatant Color (tube 4) CLEAR (CLEAR) CSF Gross Blood (Tube 4) 0 (0) CSF Neutrophils 50 % CSF Lymphocytes 21 % CSF Monocytes 29 % CSF Glucose 110 MG/DL (40-80) CSF Total Protein 35.0 MG/DL (15.0-45.0) Herpes Simplex Virus I DNA Negative (PCR) (Negative) Herpes Simplex Virus II DNA Negative (PCR) (Negative) Eosinophils % 1 % (0-4) Metamyelocytes 1 % (0-1) Myelocytes 3 % (0-0) Promyelocytes 1 % (0-0) Lactic Acid Level 1.4 mmol/L (0.4-2.0) Test 06/25/16 05:58 White Blood Count 20.5 TH/MM3 (4.0-11.0) Red Blood Count 3.31 MIL/MM3 (4.00-5.30) Hemoglobin 9.9 GM/DL (11.6-15.3) Hematocrit 29.7 % (35.0-46.0) Mean Corpuscular Volume 89.7 FL (80.0-100.0) Mean Corpuscular Hemoglobin 30.0 PG (27.0-34.0) Mean Corpuscular Hemoglobin 33.5 % Concent (32.0-36.0) Red Cell Distribution Width 14.7 % (11.6-17.2) Platelet Count 175 TH/MM3 (150-450) Mean Platelet Volume 9.7 FL (7.0-11.0) Sodium Level 138 MEQ/L (136-145) Potassium Level 4.5 MEQ/L (3.5-5.1) Chloride Level 102 MEQ/L (98-107) Carbon Dioxide Level 29.3 MEQ/L (21.0-32.0) Anion Gap 7 MEQ/L (5-15) Blood Urea Nitrogen 30 MG/DL (7-18) Creatinine 0.43 MG/DL (0.50-1.00) Estimat Glomerular Filtration 145 ML/MIN Rate (>89) Random Glucose 172 MG/DL (74-106) Calcium Level 8.2 MG/DL (8.5-10.1) Phosphorus Level 2.6 MG/DL (2.5-4.9) Magnesium Level 2.0 MG/DL (1.5-2.5) (DANIEL HARMON) Result Diagram: 06/25/16 0558 06/25/16 0558 Microbiology Microbiology Date/Time Procedure Status Source Growth 06/23/16 09:07 Gram Stain - Final Resulted Cerebral Spinal Fluid Lumbar Puncture 06/23/16 09:07 CSF Culture - Preliminary Resulted Cerebral Spinal Fluid Lumbar Puncture NO GROWTH IN 48 HOURS. 06/23/16 09:07 Acid Fast Stain - Final Resulted Cerebral Spinal Fluid Lumbar Puncture NO ACID FAST BACILLI SEEN 06/23/16 09:07 Mycobacterial Culture Resulted Cerebral Spinal Fluid Lumbar Puncture Pending 06/23/16 09:07 Fungal Smear - Final Resulted Cerebral Spinal Fluid Lumbar Puncture NO FUNGAL ELEMENTS SEEN. 06/23/16 09:07 Fungal Culture Resulted Cerebral Spinal Fluid Lumbar Puncture Pending 06/24/16 18:30 Gram Stain - Final Resulted Sputum Endotracheal 06/24/16 18:30 Sputum Culture - Preliminary Resulted Sputum Endotracheal NO GROWTH IN 24 HOURS. . Imaging Last Impressions Chest X-Ray 06/25/16 0600 Signed Impressions: Service Date/Time: Saturday, June 25, 2016 03:43 - CONCLUSION: 1. Diminished lung volumes and worsening bibasilar densities. Avi Aleman MD Lumbar Puncture Fluoroscopy 06/23/16 0600 Signed Impressions: Service Date/Time: Thursday, June 23, 2016 09:58 - CONCLUSION: Uncomplicated fluoroscopically guided lumbar puncture. Tony Burks MD Upper Extremity Ultrasound 06/22/16 0000 Signed Impressions: Service Date/Time: Wednesday, June 22, 2016 11:01 - CONCLUSION: Normal examination. Mary Thomas MD Lower Extremity Ultrasound 06/22/16 0000 Signed Impressions: Service Date/Time: Wednesday, June 22, 2016 10:44 - CONCLUSION: Normal examination. Mary Thomas MD Liver Ultrasound 06/20/16 0000 Signed Impressions: Service Date/Time: Monday, June 20, 2016 16:03 - CONCLUSION: 1. Hepatomegaly 2. Suspected small gallbladder polyp. 3. Right renal cyst and a minimally complex cyst seen at the left kidney. Tony Carroll MD Abdomen/Pelvis CT 06/19/16 0000 Signed Impressions: Service Date/Time: June 17:46 - CONCLUSION: Right ovarian cyst, uterine fibroid and right lower lobe infiltrate. K. Jasbir Raygoza MD Brain MRI 06/18/16 0000 Signed Impressions: Service Date/Time: Saturday, June 18, 2016 16:34 - CONCLUSION: 1. No acute findings. Examination is within normal limits for age. No recent infarct, mass or abnormal enhancement postcontrast. Esteban Jeff MD Head CT 06/17/16 2209 Signed Impressions: Service Date/Time: Saturday, June 18, 2016 03:48 - CONCLUSION: No acute disease. Paras Saleem Jr., MD . Procedures * 06/23/16 lumbar puncture * 06/17/16 intubated . (DANIEL HARMON-Hero) Assessment and Plan Disease Oriented Problem List: (1) Respiratory failure (2) Sepsis (3) Pneumonia Symptom Scale: (1) Weakness 0-10 Scale: Unable to quantify (2) Dyspnea 0-10 Scale: Unable to quantify (3) Lethargy 0-10 Scale: Unable to quantify Pertinent Non-Medical Issues Psychosocial: . Spiritual: Unknown. Legal: Notes indicate patient may have written advance directives. Will request copies. Patient is incapacitated to make her own health care decisions. If no written advance directives, according to [place] statutes health care proxy decision-making would fall to the patient's spouse. Ethical issues impacting care: No known concerns at this time. . Important Contacts * Kaleb Busby, spouse: [phone] or [phone] . Prognosis Per ID and Disciplinary Hearing Officer feel neurologic improvement is not related to infectious process, possible anoxic vs. other. They also feel prognosis for meaningful neurologic improvement is poor. Dr. Evangelista has requested neuro input. Patient will need trach and PEG if continued aggressive care is desired. . Code Status: No Code Plan * Patient is incapacitated to make her own health care decisions. If no written advance directives, according to [place] statutes health care proxy decision-making would fall to the patient's spouse. * NO CODE * 06/25/16 - Met with Kaleb (spouse), Doris (sister from [place]), Kalie (daughter from [place] and her HernanKristyn (lives local), and Tara (daughter from [place]). Also present Yarelis Onofre, [employer] med student. Lengthy discussion reviewing hospital course, test results, prognosis (poor for meaningful recovery ), CODE STATUS, options to continue aggressive care vs transition to comfort measures. Family is all in agreement to NO CODE status (DNR/ DNI if extubated), family is also in agreement that patient WOULD NOT want trach/PEG. They are not yet ready to transition to comfort measures only or withdrawal of life support. They would like additional input from neurology regarding whether or not any additional tests should be done, other potential differential diagnoses to be considered and neurologic prognosis. Will continue with current plan of care for now. * Palliative care will attempt to speak with Dr. Price and follow up with family. * SYMPTOMS: Dyspnea: on mechanical ventilation. Was emergently intubated on 06/17 due to inability to protect airway. Lethargy: possible secondary to dementia and/or infection vs. other etiology, LP pending. On Fentanyl, not following commands. Slight eye opening, not tracking. Weakness: secondary to infection, repeat hospitalization. Will require ongoing PT. No new medication recommendations at this time. * Palliative care will continue to follow throughout hospital course to assist with symptom management and clarification of goals as needed. . (DANIEL HARMON) Time Spent Total Floor Time (mins): 60 Face to Face Time (mins): 45 >50% Counseling/Coord of Care: Yes (DANIEL HARMON) Attestation To help prompt me to consider important information that might be impacting today's encounter and assessment, information from prior notes written by myself or my colleagues may have been "brought forward" into today's note. My signature on this note, however, is an attestation that I personally performed the exam, history, and/or decision-making noted today, and, unless otherwise indicated, the interactions with patient, family, and staff as well as the review of records all occurred today. I also attest that the listed assessment and stated plan reflect my best clinical judgment today based on the combination of historical information, prior notes, and today's exam/ interactions. When time spent is documented, it refers only to time spent today by the signer, or if indicated, combined time spent today by collaborating physician/nurse practitioner. . (DANIEL HARMON) Collaborating MD Comments . Chart reviewed. Cased discussed with palliative care PRESALES SENIOR SPECIALIST. Above PRESALES SENIOR SPECIALIST note reviewed and I concur. . (Aaron Pierce MD) DANIEL HARMON-C Jun 25, 2016 16:17 Aaron Pierce MD August 11, 2016 15:00
--- NOTE | 2016-06-25 19:46 | MG ---
cc: KENDELL CHRISTINE MD Sex: F DATE OF : 1945 [id number] HISTORY: The patient is a 70 year-old female with a history of altered mental status. DESCRIPTION: A lot of high-frequency myogenic artifact, right frontal channels occurring. The background showed generalized slowing 3 to 4 hertz activity, 20 to 50 microvolts. No driving. Photic stimulation. Occasional one second burst suppression. Single lead EKG showing sinus rhythm. INTERPRETATION Moderate encephalopathy. No active seizures. Clinical correlation. Kendell Christine MD MG/NANCY /5:35 PM /7:42 PM
[2016-06-26] VITALS (18 sets, daily range): BP systolic 95–167; BP diastolic 54–78; PULSE 54–104; RESP 12–24; TEMP 98.3–99.5; O2SAT 95–100
--- NOTE | 2016-06-26 00:33 | HHI.PR ---
Review/Management Diagnosis 1. Encephalopathy. 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 2. Respiratory failure. 3. Hypertension. 4. Elevated liver enzymes. 5. Sepsis. 6. Seizure disorder/ non-convulsive - Electroencephalogram; abnormal electroencephalogram with background sharp waves which maybe epileptogenic - Decorticate posturing Plan 1. Neuro checks q one hourly. 2. Lumbar puncture results pending . 3. DVT prophylaxis. 4. Seizure precautions 5. Keppra 1000mg Q12h - I discussed with the family members at length [>50 minutes], the current neurologic status of the patient and that the condition carries a poor prognosis of a meaningful neurologic recovery,and I explained to them that the EEG that was done today, will also aid in the prognostication: the EEG, as read after the family meeting, revealed occasional one second burst suppression, this portends an unfavorable prognosis regarding brain function, and the EEG was generally encephalopathic. - The concerns of the family members were addressed and questions answered. Diagnosis/Plan: Subjective Subjective Comments Patient is sedated and intubated No change in neurologic status s/p LP, awaiting results Elevated WBC, trending up Follow up EEG with occasional one second 'burst suppression pattern', encephalopathic pattern Currently on Keppra 1gm bid No reported clinical seizures Reconsulted to meet with family regarding prognostication and neurologic status Active Medications Current Medications Medications (Trade) Dose Ordered Sig/Louise Route Start Time Stop Time Status Last Admin (NS Flush) 2 ml UNSCH PRN .XX 06/18/16 00:00 06/22/16 21:00 (NS Flush) 2 ml BID .XX 06/18/16 09:00 06/25/16 21:00 (Tylenol) 650 mg Q6H PRN PO 06/18/16 00:00 Hold (Morphine Inj) 2 mg Q2H PRN IV 06/18/16 00:00 06/24/16 17:12 (Pepcid Inj) 20 mg Q12HR IV PUSH 06/18/16 09:00 06/25/16 21:51 (Tears Naturale Opth Soln) 1 drop TID EACH EYE 06/18/16 09:00 06/25/16 18:00 (Zofran Inj) 4 mg Q6H PRN IV 06/18/16 00:00 (Reglan Inj) 10 mg Q6H PRN IV 06/18/16 00:00 (Lovenox Inj) 40 mg Q24H SQ 06/18/16 00:00 06/24/16 22:24 Miscellaneous Information 1 Q361D XX 06/18/16 00:00 (Chlorhexidine 2% Cloth) Taper DAILY@04 TOP 06/18/16 04:00 06/14/17 03:59 06/25/16 04:00 (Chlorhexidine 2% Cloth) 3 pack UNSCH PRN TOP 06/18/16 00:00 (SoluMEDROL INJ) 40 mg Q12H IV 06/18/16 00:00 06/25/16 12:00 (Beneprotein Powder) 2 pack TID G-TUBE 06/18/16 09:00 06/25/16 18:00 (Colace) 100 mg Q12H G-TUBE 06/18/16 03:00 06/25/16 15:00 (Norvasc) 10 mg DAILY PO 06/18/16 09:00 06/25/16 08:33 (Dulcolax Supp) 10 mg DAILY PRN RECTAL 06/18/16 05:15 (Plavix) 75 mg DAILY PO 06/18/16 09:00 Hold 06/18/16 08:14 (Ativan) 1 mg Q8H PRN PO 06/18/16 05:15 (Theragran M Tab) 1 tab DAILY PO 06/18/16 09:00 06/25/16 08:33 Lisinopril 40 mg 40 mg DAILY PO 06/18/16 09:00 06/25/16 08:33 (Keppra 1000 Mg Inj) 100 ml @ 400 mls/hr Q12HR IV 06/20/16 09:00 06/25/16 21:51 (D50w (Vial) Inj) 25 ml UNSCH PRN IV PUSH 06/20/16 09:00 (Glucagon Inj) 1 mg UNSCH PRN OTHER 06/20/16 09:00 Insulin Human Regular 1 1 Q6H SQ 06/20/16 09:00 06/25/16 03:00 Potassium Chloride 100 ml @ 50 mls/hr Q2H PRN IV 06/20/16 09:30 Potassium Chloride 100 ml @ 50 mls/hr Q2H PRN IV 06/20/16 09:30 Potassium Chloride 100 ml @ 25 mls/hr UNSCH PRN IV 06/20/16 09:30 Potassium Chloride 100 ml @ 50 mls/hr Q2H PRN IV 06/20/16 09:30 (Magnesium Sulfate Inj/NS Inj) 100 ml @ 50 mls/hr UNSCH PRN IV 06/20/16 09:30 Magnesium Oxide 800 mg 800 mg UNSCH PRN PO 06/20/16 09:30 (Magnesium Sulfate Inj/NS Inj) 100 ml @ 50 mls/hr UNSCH PRN IV 06/20/16 09:30 Potassium Phosphate 2000 mg 2,000 mg Q4H PRN PO 06/20/16 09:30 (Sodium Phosphate Inj/NS 250 ml Inj) 250 ml @ 42 mls/hr UNSCH PRN IV 06/20/16 09:30 06/23/16 10:16 Potassium Phosphate 2000 mg 2,000 mg UNSCH PRN PO/TUBE 06/20/16 09:30 Potassium Phosphate 30 mmol/ Sodium Chloride 260 ml @ 42 mls/hr UNSCH PRN IV 06/20/16 09:30 Sodium Chloride 1,000 ml @ 50 mls/hr Q20H IV 06/20/16 09:30 06/25/16 13:16 Fentanyl Citrate 250 ml @ 0 mls/hr TITRATE IV 06/20/16 17:45 06/24/16 18:39 (Maxipime Inj/NS Inj) 100 ml @ 200 mls/hr Q8H IV 06/21/16 08:00 06/25/16 16:00 Allergies Allergies Coded Allergies Olanzapine (Verified Allergy, Unknown, UNKNOWN, 06/17/16) Exam I&O / VS 06/25/16 06/25/16 06/26/16 15:00 23:00 07:00 Intake Total 1250 ml Output Total 0 ml 850.0 ml Balance 0 ml 400.0 ml IV Total 650 ml Tube Feeding 450 ml Other 150 ml Output Urine Total 850 ml Tube Feeding Residual Discard 0 ml 0 ml Vital Signs Date Time Temp Pulse Resp B/P Pulse Ox O2 Delivery O2 Flow Rate FiO2 06/26/16 00:00 40 06/26/16 00:00 99.2 100 24 147/64 96 06/26/16 00:00 100 06/25/16 22:00 93 06/25/16 20:00 40 06/25/16 20:00 99.7 84 17 116/56 97 06/25/16 20:00 84 06/25/16 19:16 97 40 06/25/16 18:00 51 06/25/16 16:00 51 06/25/16 16:00 99.8 52 14 88/42 98 06/25/16 16:00 45 06/25/16 15:28 100 40 06/25/16 14:00 51 06/25/16 12:01 96 40 06/25/16 12:00 99.8 62 12 92/58 98 06/25/16 12:00 51 06/25/16 12:00 45 06/25/16 10:00 51 06/25/16 10:00 51 06/25/16 08:03 99.5 48 12 122/58 98 06/25/16 08:03 45 06/25/16 08:00 51 06/25/16 07:58 99.5 48 12 122/58 98 06/25/16 07:32 100 40 06/25/16 06:00 51 06/25/16 04:46 100 40 06/25/16 04:00 45 06/25/16 04:00 99.5 60 12 122/59 98 06/25/16 04:00 60 06/25/16 02:25 100 40 06/25/16 02:00 53 Exam Comments GENERAL: Sedated and ventilated nonverbal. Family , two daughters and a male family member, all in the room HEENT: head atraumatic, normocephalic. Eyes no gaze deviation. No injection on eyes. NECK: Stiff positive for neck rigidity. CARDIOVASCULAR SYSTEM: Regular rate and rhythm. No murmurs. RESPIRATORY: Clear to auscultation and no wheezes. MUSCULOSKELETAL: No cyanosis or edema. EXTREMITIES: Stiff extremities. NEUROLOGIC: Vented and sedated. Positive for neck stiffness. No gaze deviation. Pupils 2 mm bilateral symmetrical, sluggishly reacting to light. Patient attains what looks like a decorticate posture, no abnormal movements; LE . Reflexes 2+ upper extremities 1+ bilateral ankle plantar bilateral upgoing. No clonus. Objective Radiology Results Last 72 hours Impressions Chest X-Ray 06/25/16 0600 Signed Impressions: Service Date/Time: Saturday, June 25, 2016 03:43 - CONCLUSION: 1. Diminished lung volumes and worsening bibasilar densities. Avi Aleman MD Lumbar Puncture Fluoroscopy 06/23/16 0600 Signed Impressions: Service Date/Time: Thursday, June 23, 2016 09:58 - CONCLUSION: Uncomplicated fluoroscopically guided lumbar puncture. Tony Burks MD Micro and Labs Laboratory Tests Test 06/25/16 06/25/16 05:58 14:30 White Blood Count 20.5 Red Blood Count 3.31 Hemoglobin 9.9 Hematocrit 29.7 Mean Corpuscular Volume 89.7 Mean Corpuscular Hemoglobin 30.0 Mean Corpuscular Hemoglobin 33.5 Concent Red Cell Distribution Width 14.7 Platelet Count 175 Mean Platelet Volume 9.7 Sodium Level 138 Potassium Level 4.5 Chloride Level 102 Carbon Dioxide Level 29.3 Anion Gap 7 Blood Urea Nitrogen 30 Creatinine 0.43 Estimat Glomerular Filtration 145 Rate Random Glucose 172 Calcium Level 8.2 Phosphorus Level 2.6 Magnesium Level 2.0 Urine Color YELLOW Urine Turbidity CLEAR Urine pH 6.0 Urine Specific [place] 1.028 Urine Protein TRACE Urine Glucose (UA) NEG Urine Ketones NEG Urine Occult Blood NEG Urine Nitrite NEG Urine Bilirubin NEG Urine Urobilinogen LESS THAN 2.0 Urine Leukocyte Esterase NEG Urine RBC 1 Urine WBC 2 Urine Squamous Epithelial <1 Cells Urine Hyaline Casts 1 Urine Mucus FEW Microscopic Urinalysis Comment CATH-CULT NOT IND Date/Time Procedure Status Source Growth 06/25/16 18:54 Aerobic Blood Culture Received Blood Peripheral Pending 06/25/16 18:54 Anaerobic Blood Culture Received Blood Peripheral Pending 06/24/16 18:30 Gram Stain - Final Resulted Sputum Endotracheal 06/24/16 18:30 Sputum Culture - Preliminary Resulted Sputum Endotracheal NO GROWTH IN 24 HOURS. 06/23/16 09:07 Fungal Smear - Final Resulted Cerebral Spinal Fluid Lumbar Puncture NO FUNGAL ELEMENTS SEEN. 06/23/16 09:07 Fungal Culture Resulted Cerebral Spinal Fluid Lumbar Puncture Pending 06/23/16 09:07 Acid Fast Stain - Final Resulted Cerebral Spinal Fluid Lumbar Puncture NO ACID FAST BACILLI SEEN 06/23/16 09:07 Mycobacterial Culture Resulted Cerebral Spinal Fluid Lumbar Puncture Pending Jules Price MD Jun 26, 2016 00:33
[2016-06-26] MEDS: CEFEPIME INJ 2,000 MG in SODIUM CHLORIDE 0.9% INJ 100 ML IV SCH ×4 (01:38→23:57)
[2016-06-26] MEDS: methylPREDNISolone SOD SUCC 40 MG/1 ML VIAL IV SCH ×3 (01:39→23:56)
[2016-06-26] MEDS: ENOXAPARIN SODIUM 40 MG/0.4 ML SYRINGE SQ SCH ×2 (01:39→23:56)
[2016-06-26] MEDS: INSULIN NovoLIN REGULAR SUPPLEMENTAL SCALE SQ SCH ×4 (03:00→21:00)
[2016-06-26] MEDS: DOCUSATE SODIUM 100 MG CAP G-TUBE SCH ×2 (03:00→15:00)
[2016-06-26] MEDS: CHLORHEXIDINE GLUCONATE 2 % 1 PACK (2 CLOTHS) TOP SCH (04:00)
[2016-06-26] MEDS: LISINOPRIL 20 MG TAB PO SCH (07:55)
[2016-06-26] MEDS: MULTIVITAMINS/MINERALS THERAPEUTIC TAB PO SCH (07:55)
[2016-06-26] MEDS: FAMOTIDINE 20 MG/2 ML VIAL IV PUSH SCH ×2 (07:55→20:17)
[2016-06-26] MEDS: levETIRAcetam 1000 MG INJ 100 ML IV SCH ×2 (07:56→20:17)
[2016-06-26] MEDS: ARTIFICIAL TEARS OPTH SOLN 15 ML BTL EACH EYE SCH ×3 (07:56→17:43)
[2016-06-26] MEDS: SODIUM CHLORIDE 0.9% FLUSH 10 ML FLUSH SCH ×2 (07:57→20:18)
[2016-06-26] MEDS: BENEPROTEIN POWDER 1 PACK G-TUBE SCH ×3 (07:57→17:43)
[2016-06-26] MEDS: SODIUM CHLOR 0.9% 1000 ML INJ 1,000 ML IV SCH (08:37)
[2016-06-26] MEDS: RESP: ALBUTEROL 2.5 MG/3 ML NEB (SCH) NEB ×4 (08:56→20:00)
[2016-06-26 09:52] LABS: CSF CRYPTOCOCCUS AG CONF ND (NOT DETECTD)
--- NOTE | 2016-06-26 14:01 | HHI.HCPN ---
Reason for visit a. To assist with evaluation and management of symptoms including: dyspnea, encephalopathy, weakness. b. To assist medical decision maker(s) with: better understanding of current medical conditions; weighing benefits/burdens of medical treatment options; making medical treatment decisions. . (DANIEL HARMON) Subjective/Interval History Patient seen and examined in ICU. Discussed with family at bedside. Reviewed Dr. Price notes, appreciate his expertise and input. Family appreciates time Dr. Price spent speaking to them last night. EEG with moderate encephalopathy, no active seizures, Dr. Price notes indicate it "revealed occasional one second burst suppression, this portends an unfavorable prognosis regarding brain function. Cytology negative for malignant cells, rare small lymphocytes present. Tmax 99.8. Remains on mech vent. No new labs. 06/25/16 - Blood cultures no growth 1 day. No new imaging. Patient does not appear painful during my visit, on Fentanyl drip 100mcg/hr. No evidence of neurologic improvement. Bilateral UEs appear more rigid with contractures. . Family/friend interactions Met with spouse, sister, 2 daughters and son in law. EDMUND Conrad also present. Also spoke with other daughter Constance via telephone. All family in agreement patient would not want trach/PEG. They have elected to proceed with withdrawal of life support 06/27/16 at 10am. Anticipatory guidance for withdrawal of life support provided. They have a film mounter who has been coming to visit, declined rfid systems architect support. Offered hospice support, declined for now. Family is very concerned that patient not suffer, makes me promise him we "will not allow her to suffer stating she (and family) have suffered enough. " They are very appreciative of the medical team efforts to make her better and for the time spent by palliative care team. . (DANIEL HARMON) Advance Directives Advance Directive Specifics Date completed: None. Health Care Surrogate(s): According to [place] statutes, health care proxy decision-making falls to the patient's spouse. . Documented care wishes: None. Significant change in goals: NO CODE. Family plans to proceed with withdrawal of life support on 06/26/16 at 10am. Declined hospice and rfid systems architect support at this time. . (EDEN,DANIEL R PLASTER DIE MAKER-C) Objective Vital Signs Date Time Temp Pulse Resp B/P Pulse Ox O2 Delivery O2 Flow Rate FiO2 06/26/16 12:25 100 30 06/26/16 08:56 99 40 06/26/16 06:00 96 06/26/16 04:29 97 40 06/26/16 04:00 92 06/26/16 04:00 40 06/26/16 04:00 99.5 92 18 153/70 96 06/26/16 02:00 104 06/26/16 01:39 97 40 06/26/16 00:00 40 06/26/16 00:00 99.2 100 24 147/64 96 06/26/16 00:00 100 06/25/16 22:00 93 06/25/16 20:00 40 06/25/16 20:00 99.7 84 17 116/56 97 06/25/16 20:00 84 06/25/16 19:16 97 40 06/25/16 18:00 51 06/25/16 16:00 51 06/25/16 16:00 99.8 52 14 88/42 98 06/25/16 16:00 45 06/25/16 15:28 100 40 06/25/16 14:00 51 Intake & Output 06/26/16 06/26/16 07:00 19:00 Intake Total 2885 ml Output Total 2675 ml Balance 210 ml IV Total 1889 ml Tube Feeding 696 ml Other 300 ml Output Urine Total 2675 ml Tube Feeding Residual Discard 0 ml Physical Exam CONSTITUTIONAL/GENERAL: This is an adequately nourished patient on [facility] vent. TUBES/LINES/DRAINS: ETT, OG, PIVs, Kay, podus boots. SKIN: No jaundice, rashes, or lesions. Ecchymoses on upper extremities. No wounds seen anteriorly. Skin temperature appropriate. Not diaphoretic. EYES: Eyes closed. Does not open to voice or painful stimuli. Squeezes eyes shut when I attempt to open for exam. CARDIOVASCULAR: Regular rate and rhythm without murmurs, gallops, or rubs. No JVD. Peripheral pulses symmetric. RESPIRATORY/CHEST: Symmetric, unlabored respirations on vent. Diminished breath sounds bilaterally. GASTROINTESTINAL: Abdomen soft, non-tender, nondistended. No guarding. Bowel sounds present. GENITOURINARY: Without palpable bladder distension. Kay catheter in place. MUSCULOSKELETAL: Extremities with edema. Contractures bilateral upper extremities, rigid. No mottling or clubbing. NEUROLOGICAL: off sedation. Does not open eyes to voice or exam. Withdraws to noxious stimuli. . (DANIEL HARMON) Diagnostic Tests Laboratory Laboratory Tests Test 06/23/16 06/24/16 06/25/16 06/25/16 19:55 04:26 05:58 14:30 Phosphorus Level 3.3 MG/DL 2.7 MG/DL 2.6 MG/DL (2.5-4.9) (2.5-4.9) (2.5-4.9) White Blood Count 24.1 TH/MM3 20.5 TH/MM3 (4.0-11.0) (4.0-11.0) Red Blood Count 3.55 MIL/MM3 3.31 MIL/MM3 (4.00-5.30) (4.00-5.30) Hemoglobin 10.3 GM/DL 9.9 GM/DL (11.6-15.3) (11.6-15.3) Hematocrit 32.2 % 29.7 % (35.0-46.0) (35.0-46.0) Mean Corpuscular Volume 90.8 FL 89.7 FL (80.0-100.0) (80.0-100.0) Mean Corpuscular Hemoglobin 29.1 PG 30.0 PG (27.0-34.0) (27.0-34.0) Mean Corpuscular Hemoglobin 32.0 % 33.5 % Concent (32.0-36.0) (32.0-36.0) Red Cell Distribution Width 14.5 % 14.7 % (11.6-17.2) (11.6-17.2) Platelet Count 182 TH/MM3 175 TH/MM3 (150-450) (150-450) Mean Platelet Volume 9.5 FL 9.7 FL (7.0-11.0) (7.0-11.0) Neutrophils (%) (Auto) 84.4 % (16.0-70.0) Lymphocytes (%) (Auto) 9.7 % (9.0-44.0) Monocytes (%) (Auto) 5.6 % (0.0-8.0) Eosinophils (%) (Auto) 0.1 % (0.0-4.0) Basophils (%) (Auto) 0.2 % (0.0-2.0) Neutrophils # (Auto) 20.4 TH/MM3 (1.8-7.7) Lymphocytes # (Auto) 2.3 TH/MM3 (1.0-4.8) Monocytes # (Auto) 1.4 TH/MM3 (0-0.9) Eosinophils # (Auto) 0.0 TH/MM3 (0-0.4) Basophils # (Auto) 0.1 TH/MM3 (0-0.2) CBC Comment AUTO DIFF Differential Total Cells 100 Counted Neutrophils % (Manual) 74 % (16-70) Lymphocytes % 14 % (9-44) Monocytes % 6 % (0-8) Eosinophils % 1 % (0-4) Neutrophils # (Manual) 19.0 TH/MM3 (1.8-7.7) Metamyelocytes 1 % (0-1) Myelocytes 3 % (0-0) Promyelocytes 1 % (0-0) Differential Comment FINAL DIFF MANUAL Platelet Estimate NORMAL (NORMAL) Platelet Morphology Comment NORMAL (NORMAL) Red Cell Morphology Comment NORMAL (NORMAL) Sodium Level 140 MEQ/L 138 MEQ/L (136-145) (136-145) Potassium Level 4.1 MEQ/L 4.5 MEQ/L (3.5-5.1) (3.5-5.1) Chloride Level 103 MEQ/L 102 MEQ/L (98-107) (98-107) Carbon Dioxide Level 30.1 MEQ/L 29.3 MEQ/L (21.0-32.0) (21.0-32.0) Anion Gap 7 MEQ/L (5-15) 7 MEQ/L (5-15) Blood Urea Nitrogen 24 MG/DL (7-18) 30 MG/DL (7-18) Creatinine 0.43 MG/DL 0.43 MG/DL (0.50-1.00) (0.50-1.00) Estimat Glomerular Filtration 145 ML/MIN 145 ML/MIN Rate (>89) (>89) Random Glucose 159 MG/DL 172 MG/DL (74-106) (74-106) Lactic Acid Level 1.4 mmol/L (0.4-2.0) Calcium Level 8.2 MG/DL 8.2 MG/DL (8.5-10.1) (8.5-10.1) Magnesium Level 1.9 MG/DL 2.0 MG/DL (1.5-2.5) (1.5-2.5) Urine Color YELLOW (YELLW/STRAW) Urine Turbidity CLEAR (CLEAR) Urine pH 6.0 (5.0-8.5) Urine Specific [place] 1.028 (1.002-1.035) Urine Protein TRACE mg/dL (NEG-TRACE) Urine Glucose (UA) NEG mg/dL (NEG) Urine Ketones NEG mg/dL (NEG) Urine Occult Blood NEG (NEG) Urine Nitrite NEG (NEG) Urine Bilirubin NEG (NEG) Urine Urobilinogen LESS THAN 2.0 MG/DL (LESS THAN 2.0) Urine Leukocyte Esterase NEG (NEG) Urine RBC 1 /hpf (0-3) Urine WBC 2 /hpf (0-5) Urine Squamous Epithelial <1 /hpf (0-5) Cells Urine Hyaline Casts 1 /lpf (RARE) Urine Mucus FEW /lpf (OCC) Microscopic Urinalysis Comment CATH-CULT NOT IND (DANIEL HARMON) Result Diagram: 06/25/1658 06/25/16557 Microbiology Microbiology Date/Time Procedure Status Source Growth 06/24/16 18:30 Gram Stain - Final Complete Sputum Endotracheal 06/24/16 18:30 Sputum Culture - Final Complete Sputum Endotracheal NO GROWTH IN 48 HOURS. 06/25/16 18:48 Aerobic Blood Culture - Preliminary Resulted Blood Peripheral NO GROWTH IN 1 DAY 06/25/16 18:48 Anaerobic Blood Culture - Preliminary Resulted Blood Peripheral NO GROWTH IN 1 DAY 06/25/16 18:54 Aerobic Blood Culture - Preliminary Resulted Blood Peripheral NO GROWTH IN 1 DAY 06/25/16 18:54 Anaerobic Blood Culture - Preliminary Resulted Blood Peripheral NO GROWTH IN 1 DAY . Imaging Last Impressions Chest X-Ray 06/25/16599 Signed Impressions: Service Date/Time: Saturday, June 25, 2016 03:43 - CONCLUSION: 1. Diminished lung volumes and worsening bibasilar densities. Avi Aleman MD Lumbar Puncture Fluoroscopy 06/23/16599 Signed Impressions: Service Date/Time: Thursday, June 23, 2016 09:58 - CONCLUSION: Uncomplicated fluoroscopically guided lumbar puncture. Tony Burks MD Upper Extremity Ultrasound 06/22/16 0000 Signed Impressions: Service Date/Time: Wednesday, June 22, 2016 11:01 - CONCLUSION: Normal examination. Mary Thomas MD Lower Extremity Ultrasound 06/22/16 0000 Signed Impressions: Service Date/Time: Wednesday, June 22, 2016 10:44 - CONCLUSION: Normal examination. Mary Thomas MD Liver Ultrasound 06/20/16 0000 Signed Impressions: Service Date/Time: Monday, June 20, 2016 16:03 - CONCLUSION: 1. Hepatomegaly 2. Suspected small gallbladder polyp. 3. Right renal cyst and a minimally complex cyst seen at the left kidney. Tony Carroll MD Abdomen/Pelvis CT 06/19/16 0000 Signed Impressions: Service Date/Time: June 17:46 - CONCLUSION: Right ovarian cyst, uterine fibroid and right lower lobe infiltrate. K. Jasbir Raygoza MD Brain MRI 06/18/16 0000 Signed Impressions: Service Date/Time: Saturday, June 18, 2016 16:34 - CONCLUSION: 1. No acute findings. Examination is within normal limits for age. No recent infarct, mass or abnormal enhancement postcontrast. Esteban Jeff MD Head CT 06/17/162208 Signed Impressions: Service Date/Time: Saturday, June 18, 2016 03:48 - CONCLUSION: No acute disease. Paras Saleem Jr., MD . Procedures * 06/23/16 lumbar puncture * 06/17/16 intubated . (DANIEL HARMON [facility]) Assessment and Plan Disease Oriented Problem List: (1) Respiratory failure (2) Sepsis (3) Pneumonia (4) Encephalopathy Comment: No improvement for the past 6 weeks per family report. No evidence for neuro improvement since admission. . (5) Seizure (6) Dementia Comment: Family indicates they have been losing her for the past 2 years, significant decline in the past 6 weeks. . Symptom Scale: (1) Weakness 0-10 Scale: Unable to quantify Comment: now with worsening contractures bilateral UEs. (2) Dyspnea 0-10 Scale: Unable to quantify (3) Encephalopathy 0-10 Scale: Unable to quantify Pertinent Non-Medical Issues Psychosocial: . Spiritual: Supported by her sikh film mounter, declines rfid systems architect support. Legal: Family indicates no known written Advanced directives. Patient is incapacitated to make her own health care decisions, will not regain capacity. If no written advance directives, according to [place] statutes health care proxy decision-making would fall to the patient's spouse. He is supported by the patients 3 daughters and sister. Ethical issues impacting care: No known concerns at this time. . Important Contacts * Kaleb Busby, spouse: [phone] or [phone] . Prognosis ID, Neurology and Offshore Wind Operations Manager feel neurologic improvement is not related to infectious process, possible anoxic vs. other. They also feel prognosis for meaningful neurologic improvement is poor. . Code Status: No Code Plan * Family indicates no known written Advanced directives. Patient is incapacitated to make her own health care decisions, will not regain capacity. If no written advance directives, according to [place] statutes health care proxy decision-making would fall to the patient's spouse. He is supported by the patients 3 daughters and sister. * NO CODE * 06/26/16 - Met with spouse, sister, 2 daughters and son in law. EDMUND Conrad also present. Also spoke with other daughter Constance via telephone. All family in agreement patient would not want trach/PEG. They have elected to proceed with withdrawal of life support 06/27/16 at 10am, Dr. Pierce will sign exhibits and write orders. Anticipatory guidance for withdrawal of life support provided. They have a film mounter who has been coming to visit, declined rfid systems architect support. Offered hospice support, declined for now. Family is very concerned that patient not suffer, makes me promise him we "will not allow her to suffer stating she (and family) have suffered long enough." They are very appreciative of the medical team efforts to make her better and for the time spent by palliative care team. * Exhibits B & C requested be placed on chart. * Discussed with nurse. * Appreciate Dr. Price expertise and conversation with family. Family is very appreciative. * SYMPTOMS: Dyspnea: Was emergently intubated on 06/17/16 due to inability to protect airway, on mechanical ventilation. Encephalopathy: possible secondary to dementia and/or infection vs. other etiology, LP negative. Slight eye opening , not tracking. Worsening contractures bilateral UEs. No new medication recommendations at this time. * Palliative care will continue to follow throughout hospital course to assist with symptom management and clarification of goals as needed. . (DANIEL HARMON) Time Spent Total Floor Time (mins): 60 Face to Face Time (mins): 50 >50% Counseling/Coord of Care: Yes (DANIEL HARMON) Attestation To help prompt me to consider important information that might be impacting today's encounter and assessment, information from prior notes written by myself or my colleagues may have been "brought forward" into today's note. My signature on this note, however, is an attestation that I personally performed the exam, history, and/or decision-making noted today, and, unless otherwise indicated, the interactions with patient, family, and staff as well as the review of records all occurred today. I also attest that the listed assessment and stated plan reflect my best clinical judgment today based on the combination of historical information, prior notes, and today's exam/ interactions. When time spent is documented, it refers only to time spent today by the signer, or if indicated, combined time spent today by collaborating physician/nurse practitioner. (DANIEL HARMON) Collaborating MD Comments . Chart reviewed. Cased discussed with palliative care PLASTER DIE MAKER. Above PLASTER DIE MAKER note reviewed and I concur. . (Aaron Pierce MD) DANIEL HARMON Jun 26, 2016 14:01 Aaron Pierce MD August 11, 2016 15:10
[2016-06-26] MEDS: fentaNYL DRIP 250 ML IV SCH (14:56)
--- NOTE | 2016-06-26 16:37 | HHI.CCPN ---
Subjective Remarks/Hospital Course 06/18: 70-year-old unfortunate female jail resident due to lack of capacity to live independently due to progressively worsening dementia. Patient was progressively getting more lethargic within last few days. She was also noted to be febrile. Per daughter patient baseline is between" sometimes she talks but doesn't make any sense" but sometimes just mumbles. She has also had some decreased by mouth intake. She was found more lethargic almost unresponsive and was transferred to emergency department. In the ED she was found not to be able to protect her airways and was intubated by ER attending. She was admitted to the ICU. 06/19: Patient remains sedated and mechanically ventilated. RASS score of -2. No acute events overnight. Tmax overnight of 100.2F. Review of records from [facility] admission on 05/06/16 patient was admitted due to fevers, rigors, dysuria however urine culture was negative. Blood cultures obtained during that admission were found to be intermittently positive however organisms were all different including staph epi and staph hominis and thought to be contaminants. CXR and head CT were negative. Flu A/B ags were negative. It was noted that the patient had been taking Zyprexa and that medication has been discontinued due to possible neuroleptic-related fever. Patient had also been taking Haldol prn as well as Effexor. Echocardiogram was negative no vegetations. 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 Pt also had elevated LFTs during that admission which trended down and biliary scan was negative. 06/20 Patient is intubated and sedated with Diprivan. Afebrile for LP today. 06/21 Tmax 99.6. Leukocytosis resolving. Liver enzymes are decreasing. The patient remains intubated and CPAP trials thus far unsuccessful. 06/22 Tmax 99.3. No change in neuro status. Patient was maintained on CPAP for approximately 12 hours yesterday. The patient white blood cell count has noted elevation today, will obtain venous Doppler ultrasound bilateral extremities to rule out thrombus. The patient continues on antibiotics per ID recommendations. 06/23: Leukocytosis worsening. Patient went to IR for lumbar puncture this a.m.. Patient is tolerated CPAP trials for greater than 24 hours plans to obtain a RSBI score and possible extubation this afternoon. 06/24: Afebrile .The patient has continued on CPAP greater than 48 hours. WBC count trending upward. Decision not to remove endotracheal tube, yesterday decided by and family with palliative care on board with a possibility of reintubation. Family considering goals of care at this time and wished to await results of lumbar puncture before decision to extubate the patient. 06/25: WBC count slightly lower today. Plan family meeting with palliative team this afternoon. The patient was placed back on the ventilator yesterday after becoming tachypnea and bradycardic. CSF fluid still preliminarily negative. Neurology consulted in regards to the no change in neuro status. 06/26: No change in neurological status. Neurology consult to yesterday discuss with family results of assessment. Family met with palliative care and decided to initiate comfort care measures on 06/27/16. Objective Vital Signs Date Time Temp Pulse Resp B/P Pulse Ox O2 Delivery O2 Flow Rate FiO2 06/26/16 12:25 100 30 06/26/16 06:00 96 06/26/16 04:00 99.5 18 153/70 Intake and Output 06/25/16 06/25/16 06/26/16 08:00 16:00 00:00 Intake Total 1282 ml 1250 ml 1435 ml Output Total 650.0 ml 850 ml 1375 ml Balance 632.0 ml 400 ml 60 ml Result Diagram: 06/25/16 0558 06/25/16 0558 Other Results Microbiology Date/Time Procedure Status Source Growth 06/24/16 18:30 Gram Stain - Final Complete Sputum Endotracheal 06/24/16 18:30 Sputum Culture - Final Complete Sputum Endotracheal NO GROWTH IN 48 HOURS. Imaging Last Impressions Abdomen/Pelvis CT 06/19/16 0000 Signed Impressions: Service Date/Time: June 17:46 - CONCLUSION: Right ovarian cyst, uterine fibroid and right lower lobe infiltrate. Shaheen Raygoza MD Chest X-Ray 06/18/16 0000 Signed Impressions: Service Date/Time: Saturday, June 18, 2016 05:42 - CONCLUSION: Repositioning of the endotracheal tube. New basilar consolidations. Paras Saleem Jr., MD Brain MRI 06/18/16 0000 Signed Impressions: Service Date/Time: Saturday, June 18, 2016 16:34 - CONCLUSION: 1. No acute findings. Examination is within normal limits for age. No recent infarct, mass or abnormal enhancement postcontrast. Esteban Jeff MD Head CT 06/17/163 Signed Impressions: Service Date/Time: Saturday, June 18, 2016 03:48 - CONCLUSION: No acute disease. Paras Saleem Jr., MD Objective Remarks GENERAL: Well-nourished, well-developed patient. SKIN: Warm and dry. HEAD: Normocephalic. EYES: No scleral icterus. No injection or drainage. NECK: Supple, trachea midline. No JVD or lymphadenopathy. CARDIOVASCULAR: Regular rate and rhythm without murmurs, gallops, or rubs. RESPIRATORY: Breath sounds equal bilaterally. No accessory muscle use. GASTROINTESTINAL: Abdomen soft, non-tender, nondistended. MUSCULOSKELETAL: No cyanosis, or edema. Multiple contractures noted. Neuro: GCS 6T unresponsive. A/P Assessment and Plan NEURO: AMS History of dementia Delirium - On Fentanyl infusion for sedation, daily sedation vacation -Discontinue fentanyl infusion while on CPAP trials - Neuro consulted- Dr. Price -EEG showed mod slowing with sharp waves which could be focus for seizures Continue with Keppra -06/[address] FountainXioohxbh-unzstm-cg results RESP: Respiratory failure, now mechanically ventilated RLL infiltrate - Continue with vent support keep sat > 92% - ICU vent bundle, Bronchodilators-scheduled - Patient on mechanical ventilation restarted yesterday secondary to tachypnea -Maintain head of bed elevation 30 -Chest x-ray 06/22 improving right base consolidation or atelectasis CV: Hypertension -Monitor HR and BP keep MAP>65mmHg -On Lisinopril 40mg daily GI: -Elevated LFT's. - tube feeds with Jevity 1.5 lina at goal of 60 cc/hr, currently on hold for planned extubation - Colace for bowel regimen. Last BM 06/21/16 -CT abdomen/pelvis: Right ovarian cyst, uterine fibroid and right lower lobe infiltrate. Normal liver : Hypophosphatemia -Monitor renal function, I/O's, electrolytes replacement per protocol. -Hep-Lock IV HEME: Chronic Anemia, stable - Monitor CBC ID: Sepsis Funguria RLL infiltrate-resolved Persistent Leukocytosis - 06/17 BC: Pleomorphic GP rods / bottles- Likely contaminant - 06/17 UCx growing yeast, pneumococcal legionella negative -Continue with abx per ID (On vancomycin (06/18 -), cefepime (06/18 -), azithromycin (06/17 -), Diflucan (06/18 -) -WBC 20 -06/23-LP performed, CSF cultures preliminarily negative ENDO: - Continue accuchecks - Novolin (low dose) SSI - TSH 0.221 PROPH: DVT PPX: TEDs, Lovenox GI PPX: Pepcid Level 3 Dispo: Family wishes to initiate comfort care measures tomorrow as 06/27/16. Physician Monica Maxwell MD Jun 26, 2016 16:37
[2016-06-27] VITALS (9 sets, daily range): BP systolic 103–150; BP diastolic 56–68; PULSE 43–75; RESP 12–13; TEMP 98.9; O2SAT 90–99
[2016-06-27] MEDS: INSULIN NovoLIN REGULAR SUPPLEMENTAL SCALE SQ SCH (03:00)
[2016-06-27] MEDS: CHLORHEXIDINE GLUCONATE 2 % 1 PACK (2 CLOTHS) TOP SCH ×2 (03:39→20:19)
[2016-06-27] MEDS: DOCUSATE SODIUM 100 MG CAP G-TUBE SCH (03:39)
--- NOTE | 2016-06-27 08:46 | HHI.CCPN ---
Subjective Remarks/Hospital Course 06/18: 70-year-old unfortunate female long term resident due to lack of capacity to live independently due to progressively worsening dementia. Patient was progressively getting more lethargic within last few days. She was also noted to be febrile. Per daughter patient baseline is between" sometimes she talks but doesn't make any sense" but sometimes just mumbles. She has also had some decreased by mouth intake. She was found more lethargic almost unresponsive and was transferred to emergency department. In the ED she was found not to be able to protect her airways and was intubated by ER attending. She was admitted to the ICU. 06/19: Patient remains sedated and mechanically ventilated. RASS score of -2. No acute events overnight. Tmax overnight of 100.2F. Review of records from [facility] admission on 05/06/16 patient was admitted due to fevers, rigors, dysuria however urine culture was negative. Blood cultures obtained during that admission were found to be intermittently positive however organisms were all different including staph epi and staph hominis and thought to be contaminants. CXR and head CT were negative. Flu A/B ags were negative. It was noted that the patient had been taking Zyprexa and that medication has been discontinued due to possible neuroleptic-related fever. Patient had also been taking Haldol prn as well as Effexor. Echocardiogram was negative no vegetations. 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 Pt also had elevated LFTs during that admission which trended down and biliary scan was negative. 06/20 Patient is intubated and sedated with Diprivan. Afebrile for LP today. 06/21 Tmax 99.6. Leukocytosis resolving. Liver enzymes are decreasing. The patient remains intubated and CPAP trials thus far unsuccessful. 06/22 Tmax 99.3. No change in neuro status. Patient was maintained on CPAP for approximately 12 hours yesterday. The patient white blood cell count has noted elevation today, will obtain venous Doppler ultrasound bilateral extremities to rule out thrombus. The patient continues on antibiotics per ID recommendations. 06/23: Leukocytosis worsening. Patient went to IR for lumbar puncture this a.m.. Patient is tolerated CPAP trials for greater than 24 hours plans to obtain a RSBI score and possible extubation this afternoon. 06/24: Afebrile .The patient has continued on CPAP greater than 48 hours. WBC count trending upward. Decision not to remove endotracheal tube, yesterday decided by and family with palliative care on board with a possibility of reintubation. Family considering goals of care at this time and wished to await results of lumbar puncture before decision to extubate the patient. 06/25: WBC count slightly lower today. Plan family meeting with palliative team this afternoon. The patient was placed back on the ventilator yesterday after becoming tachypnea and bradycardic. CSF fluid still preliminarily negative. Neurology consulted in regards to the no change in neuro status. 06/26: No change in neurological status. Neurology consult to yesterday discuss with family results of assessment. Family met with palliative care and decided to initiate comfort care measures on 06/27/16. 06/27: Patient was noted to be actively seizing this morning. Ativan 2 mg every 15 minutes when necessary for seizure activity. Plan for comfort care measures/ withdrawal this a.m.. Objective Vital Signs Date Time Temp Pulse Resp B/P Pulse Ox O2 Delivery O2 Flow Rate FiO2 06/27/16 08:17 95 30 06/27/16 06:00 45 06/27/16 04:00 98.9 12 150/68 Intake and Output 06/26/16 06/26/16 06/27/16 08:00 16:00 00:00 Intake Total 1450 ml 1225 ml 1138 ml Output Total 1300 ml 1250 ml 340 ml Balance 150 ml -25 ml 798 ml Result Diagram: 06/25/16 0558 06/25/16 0558 Other Results Microbiology Date/Time Procedure Status Source Growth 06/24/16 18:30 Gram Stain - Final Complete Sputum Endotracheal 06/24/16 18:30 Sputum Culture - Final Complete Sputum Endotracheal NO GROWTH IN 48 HOURS. Imaging Last Impressions Chest X-Ray 06/25/16599 Signed Impressions: Service Date/Time: Saturday, June 25, 2016 03:43 - CONCLUSION: 1. Diminished lung volumes and worsening bibasilar densities. Avi Aleman MD Lumbar Puncture Fluoroscopy 06/23/16599 Signed Impressions: Service Date/Time: Thursday, June 23, 2016 09:58 - CONCLUSION: Uncomplicated fluoroscopically guided lumbar puncture. Tony Burks MD Upper Extremity Ultrasound 06/22/16 Signed Impressions: Service Date/Time: Wednesday, June 22, 2016 11:01 - CONCLUSION: Normal examination. Mary Thomas MD Lower Extremity Ultrasound 06/22/16 Signed Impressions: Service Date/Time: Wednesday, June 22, 2016 10:44 - CONCLUSION: Normal examination. Mary [facility] MD Liver Ultrasound 06/20/16 Signed Impressions: Service Date/Time: Monday, June 20, 2016 16:03 - CONCLUSION: 1. Hepatomegaly 2. Suspected small gallbladder polyp. 3. Right renal cyst and a minimally complex cyst seen at the left kidney. Tony Carroll MD Abdomen/Pelvis CT 06/19/16 Signed Impressions: Service Date/Time: June 17:46 - CONCLUSION: Right ovarian cyst, uterine fibroid and right lower lobe infiltrate. Shaheen Raygoza MD Brain MRI 06/18/16 Signed Impressions: Service Date/Time: Saturday, June 18, 2016 16:34 - CONCLUSION: 1. No acute findings. Examination is within normal limits for age. No recent infarct, mass or abnormal enhancement postcontrast. Esteban Jeff MD Head CT 06/[id number] Signed Impressions: Service Date/Time: Saturday, June 18, 2016 03:48 - CONCLUSION: No acute disease. Paras Saleem Jr., MD Last Impressions Abdomen/Pelvis CT 06/19/16 Signed Impressions: Service Date/Time: June 17:46 - CONCLUSION: Right ovarian cyst, uterine fibroid and right lower lobe infiltrate. Shaheen Raygoza MD Chest X-Ray 06/18/16 Signed Impressions: Service Date/Time: Saturday, June 18, 2016 05:42 - CONCLUSION: Repositioning of the endotracheal tube. New basilar consolidations. Paras Saleem Jr., MD Brain MRI 06/18/16 Signed Impressions: Service Date/Time: Saturday, June 18, 2016 16:34 - CONCLUSION: 1. No acute findings. Examination is within normal limits for age. No recent infarct, mass or abnormal enhancement postcontrast. Esteban Jeff MD Head CT 06/17/16 5256 Signed Impressions: Service Date/Time: Saturday, June 18, 2016 03:48 - CONCLUSION: No acute disease. Paras Saleem Jr., MD Objective Remarks GENERAL: Well-nourished, well-developed patient. SKIN: Warm and dry. HEAD: Normocephalic. EYES: No scleral icterus. No injection or drainage. NECK: Supple, trachea midline. No JVD or lymphadenopathy. CARDIOVASCULAR: Regular rate and rhythm without murmurs, gallops, or rubs. RESPIRATORY: Breath sounds equal bilaterally. No accessory muscle use. GASTROINTESTINAL: Abdomen soft, non-tender, nondistended. MUSCULOSKELETAL: No cyanosis, or edema. Multiple contractures noted. Neuro: Seizure activity, tremors. Nonresponsive. A/P Assessment and Plan NEURO: AMS History of dementia Delirium -No sedation -Seizure activity. Ativan 2 mg every 15 minutes when necessary - Neuro consulted- Dr. Price -EEG showed mod slowing with sharp waves which could be focus for seizures Continue with Keppra -4/[address] FountainJwwrkkwi-keqout-zl results RESP: Respiratory failure, now mechanically ventilated RLL infiltrate - Continue with vent support keep sat > 92% - ICU vent bundle, Bronchodilators-scheduled - Patient on mechanical ventilation restarted yesterday secondary to tachypnea -Maintain head of bed elevation 30 -Chest x-ray 06/22 improving right base consolidation or atelectasis CV: Hypertension -Monitor HR and BP keep MAP>65mmHg -On Lisinopril 40mg daily GI: -Elevated LFT's. - tube feeds with Jevity 1.5 lina at goal of 60 cc/hr - Colace for bowel regimen. Last BM 06/21/16 -CT abdomen/pelvis: Right ovarian cyst, uterine fibroid and right lower lobe infiltrate. Normal liver : Hypophosphatemia -Monitor renal function, I/O's, electrolytes replacement per protocol. -Hep-Lock IV HEME: Chronic Anemia, stable - Monitor CBC ID: Sepsis Funguria RLL infiltrate-resolved Persistent Leukocytosis - 06/17 BC: Pleomorphic GP rods / bottles- Likely contaminant - 06/17 UCx growing yeast, pneumococcal legionella negative -Continue with abx per ID (On vancomycin (06/18 -), cefepime (06/18 -), azithromycin (06/17 -), Diflucan (06/18 -) -WBC 20 -06/23-LP performed, CSF cultures preliminarily negative ENDO: - Continue accuchecks - Novolin (low dose) SSI - TSH 0.221 PROPH: DVT PPX: TEDs, Lovenox GI PPX: Pepcid Level 3 Dispo: Family wishes to initiate comfort care measures/withdrawal today . Physician Monica Maxwell MD Jun 27, 2016 08:46
[2016-06-27] MEDS: SODIUM CHLORIDE 0.9% FLUSH 10 ML FLUSH SCH ×2 (09:00→20:19)
[2016-06-27] MEDS: ARTIFICIAL TEARS OPTH SOLN 15 ML BTL EACH EYE SCH ×3 (09:00→18:00)
[2016-06-27] MEDS: levETIRAcetam 1000 MG INJ 100 ML IV SCH ×2 (09:00→20:19)
[2016-06-27] MEDS ORDERED: HYOSCYAMINE 0.125 MG TAB PO PRN (10:00)
[2016-06-27] MEDS ORDERED: LORazepam 2 MG/ML VIAL IV ONE ×2 (10:00→10:15)
[2016-06-27] MEDS ORDERED: HYDROmorphone HCL PF 2 MG/ML VIAL IV ONE ×2 (10:00→10:15)
[2016-06-27] MEDS ORDERED: BISACODYL 10 MG SUPP RECTAL PRN (10:30)
[2016-06-27] MEDS ORDERED: ACETAMINOPHEN 650 MG SUPP RECTAL PRN (10:30)
[2016-06-27] MEDS ORDERED: LORazepam 2 MG/ML VIAL IVS PRN (10:30)
[2016-06-27] MEDS ORDERED: HYDROmorphone HCL PF 2 MG/ML VIAL IV PRN (10:30)
[2016-06-27] MEDS: methylPREDNISolone SOD SUCC 40 MG/1 ML VIAL IV SCH ×2 (12:00→20:19)
[2016-06-27] MEDS: LORazepam 2 MG/ML VIAL IV SCH (12:00)
[2016-06-27] MEDS: fentaNYL DRIP 250 ML IV SCH (20:02)
--- NOTE | 2016-06-27 20:20 | HHI.HCPN ---
Reason for visit a. To assist with evaluation and management of symptoms including: dyspnea, encephalopathy, weakness. b. To assist medical decision maker(s) with: better understanding of current medical conditions; weighing benefits/burdens of medical treatment options; making medical treatment decisions. . Subjective/Interval History No significant change overnight. Family has gathered in room this AM and continues to want to go forward with compassionate withdrawal of life support. . Family/friend interactions As there are new family members present, we review some of the logistics and provide additional anticipatory guidance. , once again, is emphatic that he doesn't want her to suffer. I review the ethics and the law and my desire to special needs child caregiver her enough medication to prevent suffering but the timing will be in God's hands. Their own crm consultant is there for spiritual support. . Advance Directives Living Will: Never completed Health Care Surrogate: Never completed Durable Power of Handle Sander Operator: Never completed Advance Directive Specifics Date completed: None. Health Care Surrogate(s): According to [place] statutes, health care proxy decision-making falls to the patient's spouse. . Documented care wishes: None. Objective Vital Signs Date Time Temp Pulse Resp B/P Pulse Ox O2 Delivery O2 Flow Rate FiO2 06/27/16 11:32 90 21 06/27/16 08:17 95 30 06/27/16 08:00 30 06/27/16 06:00 45 06/27/16 04:00 30 06/27/16 04:00 75 06/27/16 04:00 98.9 75 12 150/68 95 06/27/16 03:55 93 30 06/27/16 02:00 48 06/27/16 00:30 94 30 06/27/16 00:00 98.9 54 12 103/56 99 06/27/16 00:00 54 06/27/16 00:00 30 06/26/16 22:00 63 06/26/16 21:36 95 30 Intake & Output 06/27/16 06/27/16 07:00 19:00 Intake Total 2122 ml Output Total 740 ml Balance 1382 ml Intake Oral 0 ml IV Total 1095 ml Tube Feeding 787 ml Other 240 ml Output Urine Total 740 ml # Bowel Movements 0 . Physical Exam CONSTITUTIONAL/GENERAL: This is an adequately nourished patient on mech vent. TUBES/LINES/DRAINS: ETT, OG, PIVs, Kay, podus boots. SKIN: No jaundice, rashes, or lesions. Ecchymoses on upper extremities. No wounds seen anteriorly. Skin temperature appropriate. Not diaphoretic. EYES: Eyes closed. Does not open to voice or painful stimuli. CARDIOVASCULAR: Regular rate and rhythm without murmurs, gallops, or rubs. No JVD. RESPIRATORY/CHEST: Symmetric, unlabored respirations on vent. Diminished breath sounds bilaterally. GASTROINTESTINAL: Abdomen soft, non-tender, nondistended. No guarding. GENITOURINARY: Without palpable bladder distension. Kay catheter in place. MUSCULOSKELETAL: Extremities with edema. Contractures bilateral upper extremities, rigid. NEUROLOGICAL: off sedation. Does not open eyes to voice or exam. Withdraws to noxious stimuli. . Diagnostic Tests Laboratory Laboratory Tests Test 06/25/16 06/25/16 05:58 14:30 White Blood Count 20.5 TH/MM3 (4.0-11.0) Red Blood Count 3.31 MIL/MM3 (4.00-5.30) Hemoglobin 9.9 GM/DL (11.6-15.3) Hematocrit 29.7 % (35.0-46.0) Mean Corpuscular Volume 89.7 FL (80.0-100.0) Mean Corpuscular Hemoglobin 30.0 PG (27.0-34.0) Mean Corpuscular Hemoglobin 33.5 % Concent (32.0-36.0) Red Cell Distribution Width 14.7 % (11.6-17.2) Platelet Count 175 TH/MM3 (150-450) Mean Platelet Volume 9.7 FL (7.0-11.0) Sodium Level 138 MEQ/L (136-145) Potassium Level 4.5 MEQ/L (3.5-5.1) Chloride Level 102 MEQ/L (98-107) Carbon Dioxide Level 29.3 MEQ/L (21.0-32.0) Anion Gap 7 MEQ/L (5-15) Blood Urea Nitrogen 30 MG/DL (7-18) Creatinine 0.43 MG/DL (0.50-1.00) Estimat Glomerular Filtration 145 ML/MIN Rate (>89) Random Glucose 172 MG/DL (74-106) Calcium Level 8.2 MG/DL (8.5-10.1) Phosphorus Level 2.6 MG/DL (2.5-4.9) Magnesium Level 2.0 MG/DL (1.5-2.5) Urine Color YELLOW (YELLW/STRAW) Urine Turbidity CLEAR (CLEAR) Urine pH 6.0 (5.0-8.5) Urine Specific [place] 1.028 (1.002-1.035) Urine Protein TRACE mg/dL (NEG-TRACE) Urine Glucose (UA) NEG mg/dL (NEG) Urine Ketones NEG mg/dL (NEG) Urine Occult Blood NEG (NEG) Urine Nitrite NEG (NEG) Urine Bilirubin NEG (NEG) Urine Urobilinogen LESS THAN 2.0 MG/DL (LESS THAN 2.0) Urine Leukocyte Esterase NEG (NEG) Urine RBC 1 /hpf (0-3) Urine WBC 2 /hpf (0-5) Urine Squamous Epithelial <1 /hpf (0-5) Cells Urine Hyaline Casts 1 /lpf (RARE) Urine Mucus FEW /lpf (OCC) Microscopic Urinalysis Comment CATH-CULT NOT IND . Result Diagram: 06/25/1655706/25/16557 Microbiology Microbiology Date/Time Procedure Status Source Growth 06/25/16 18:48 Aerobic Blood Culture - Preliminary Resulted Blood Peripheral NO GROWTH IN 2 DAYS 06/25/16 18:48 Anaerobic Blood Culture - Preliminary Resulted Blood Peripheral NO GROWTH IN 2 DAYS 06/25/16 18:54 Aerobic Blood Culture - Preliminary Resulted Blood Peripheral S. Aureus Mrsa Staphylococcus Epidermidis 06/25/16 18:54 Anaerobic Blood Culture - Preliminary Resulted Blood Peripheral NO GROWTH IN 2 DAYS . Imaging Last Impressions Chest X-Ray 06/25/16599 Signed Impressions: Service Date/Time: Saturday, June 25, 2016 03:43 - CONCLUSION: 1. Diminished lung volumes and worsening bibasilar densities. Avi Aleman MD Lumbar Puncture Fluoroscopy 06/23/16 06 Signed Impressions: Service Date/Time: Thursday, June 23, 2016 09:58 - CONCLUSION: Uncomplicated fluoroscopically guided lumbar puncture. Tony Burks MD Upper Extremity Ultrasound 06/22/16 0000 Signed Impressions: Service Date/Time: Wednesday, June 22, 2016 11:01 - CONCLUSION: Normal examination. Mary Thomas MD Lower Extremity Ultrasound 06/22/16 0000 Signed Impressions: Service Date/Time: Wednesday, June 22, 2016 10:44 - CONCLUSION: Normal examination. Mary Thomas MD Liver Ultrasound 06/20/16 0000 Signed Impressions: Service Date/Time: Monday, June 20, 2016 16:03 - CONCLUSION: 1. Hepatomegaly 2. Suspected small gallbladder polyp. 3. Right renal cyst and a minimally complex cyst seen at the left kidney. Tony Carroll MD Abdomen/Pelvis CT 06/19/16 0000 Signed Impressions: Service Date/Time: June 17:46 - CONCLUSION: Right ovarian cyst, uterine fibroid and right lower lobe infiltrate. K. Jasbir Raygoza MD Brain MRI 06/18/16 0000 Signed Impressions: Service Date/Time: Saturday, June 18, 2016 16:34 - CONCLUSION: 1. No acute findings. Examination is within normal limits for age. No recent infarct, mass or abnormal enhancement postcontrast. Esteban Jeff MD Head CT 06/17/16 2209 Signed Impressions: Service Date/Time: Saturday, June 18, 2016 03:48 - CONCLUSION: No acute disease. Paras Saleem Jr., MD . Procedures * 06/23/16 lumbar puncture * 06/17/16 intubated . Assessment and Plan Disease Oriented Problem List: (1) Respiratory failure (2) Sepsis (3) Pneumonia (4) Encephalopathy Comment: No improvement for the past 6 weeks per family report. No evidence for neuro improvement since admission. . (5) Seizure (6) Dementia Comment: Family indicates they have been losing her for the past 2 years, significant decline in the past 6 weeks. . Symptom Scale: (1) Weakness 0-10 Scale: Unable to quantify Comment: now with worsening contractures bilateral UEs. (2) Dyspnea 0-10 Scale: Unable to quantify (3) Encephalopathy 0-10 Scale: Unable to quantify Pertinent Non-Medical Issues Psychosocial: . Spiritual: Supported by her muslim crm consultant, [facility] learning and development associate support. Legal: Family indicates no known written Advanced directives. Patient is incapacitated to make her own health care decisions, will not regain capacity. If no written advance directives, according to [place] statutes health care proxy decision-making would fall to the patient's spouse. He is supported by the patients 3 daughters and sister. Ethical issues impacting care: No known concerns at this time. . Important Contacts * Kaleb Busby, spouse: [phone] or [phone] . Prognosis ID, Neurology and Pile Fabric Knitter feel neurologic improvement is not related to infectious process, possible anoxic vs. other. They also feel prognosis for meaningful neurologic improvement is poor. . Code Status: No Code Plan * Family indicates no known written Advanced directives. Patient is incapacitated to make her own health care decisions, will not regain capacity. If no written advance directives, according to [place] statutes health care proxy decision-making would fall to the patient's spouse. He is supported by the patients 3 daughters and sister. * NO CODE * Goals: Per proxy decision supported by entire family, compassionate withdrawal of life support to take place today. * Appropriate "Exhibits" have been signed. * I entered orders compassionate withdrawal from the ventilator and for post withdrawal comfort measures. * Orders discussed with primary nurse. * All family questions answered. * Hospice had been offered and was declined. * Case was discussed with heat welder plastics who was aware of family decision and has approved. . . Time Spent Total Floor Time (mins): 50 (total floor time included chart review, patient exam, discussion with heat welder plastics, writing orders, above referenced family discussion, reviewing extubation orders with nursing staff. ) Face to Face Time (mins): 20 >50% Counseling/Coord of Care: Yes Attestation To help prompt me to consider important information that might be impacting today's encounter and assessment, information from prior notes written by myself or my colleagues may have been "brought forward" into today's note. My signature on this note, however, is an attestation that I personally performed the exam, history, and/or decision-making noted today, and, unless otherwise indicated, the interactions with patient, family, and staff as well as the review of records all occurred today. I also attest that the listed assessment and stated plan reflect my best clinical judgment today based on the combination of historical information, prior notes, and today's exam/ interactions. When time spent is documented, it refers only to time spent today by the signer, or if indicated, combined time spent today by collaborating physician/nurse practitioner. . Aaron Pierce MD Jun 27, 2016 20:20
[2016-06-27] MEDS: HYDROmorphone HCL PF 2 MG/ML VIAL IV PRN (21:48)
[2016-06-28] VITALS: PULSE 46; RESP 13; O2SAT 91
[2016-06-28] MEDS: HYDROmorphone HCL PF 2 MG/ML VIAL IV PRN ×8 (03:00→18:39)
[2016-06-28 07:15] VITALS: PULSE 61; RESP 22; TEMP 98.9; O2SAT 94
[2016-06-28] MEDS: LORazepam 2 MG/ML VIAL IV SCH ×3 (08:45→16:36)
[2016-06-28] MEDS: levETIRAcetam 1000 MG INJ 100 ML IV SCH (08:46)
[2016-06-28] MEDS: SODIUM CHLORIDE 0.9% FLUSH 10 ML FLUSH SCH (09:00)
[2016-06-28] MEDS: fentaNYL DRIP 250 ML IV SCH (09:45)
[2016-06-28] MEDS: LORazepam 2 MG/ML VIAL IV PUSH PRN ×4 (10:08→18:39)
[2016-06-28] MEDS: methylPREDNISolone SOD SUCC 40 MG/1 ML VIAL IV SCH (12:00)
--- NOTE | 2016-06-28 13:07 | HHI.CCPN ---
Subjective Remarks/Hospital Course 06/18: 70-year-old unfortunate female long term resident due to lack of capacity to live independently due to progressively worsening dementia. Patient was progressively getting more lethargic within last few days. She was also noted to be febrile. Per daughter patient baseline is between" sometimes she talks but doesn't make any sense" but sometimes just mumbles. She has also had some decreased by mouth intake. She was found more lethargic almost unresponsive and was transferred to emergency department. In the ED she was found not to be able to protect her airways and was intubated by ER attending. She was admitted to the ICU. 06/19: Patient remains sedated and mechanically ventilated. RASS score of -2. No acute events overnight. Tmax overnight of 100.2F. Review of records from [facility] admission on 05/06/16 patient was admitted due to fevers, rigors, dysuria however urine culture was negative. Blood cultures obtained during that admission were found to be intermittently positive however organisms were all different including staph epi and staph hominis and thought to be contaminants. CXR and head CT were negative. Flu A/B ags were negative. It was noted that the patient had been taking Zyprexa and that medication has been discontinued due to possible neuroleptic-related fever. Patient had also been taking Haldol prn as well as Effexor. Echocardiogram was negative no vegetations. 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 Pt also had elevated LFTs during that admission which trended down and biliary scan was negative. 06/20 Patient is intubated and sedated with Diprivan. Afebrile for LP today. 06/21 Tmax 99.6. Leukocytosis resolving. Liver enzymes are decreasing. The patient remains intubated and CPAP trials thus far unsuccessful. 06/22 Tmax 99.3. No change in neuro status. Patient was maintained on CPAP for approximately 12 hours yesterday. The patient white blood cell count has noted elevation today, will obtain venous Doppler ultrasound bilateral extremities to rule out thrombus. The patient continues on antibiotics per ID recommendations. 06/23: Leukocytosis worsening. Patient went to IR for lumbar puncture this a.m.. Patient is tolerated CPAP trials for greater than 24 hours plans to obtain a RSBI score and possible extubation this afternoon. 06/24: Afebrile .The patient has continued on CPAP greater than 48 hours. WBC count trending upward. Decision not to remove endotracheal tube, yesterday decided by and family with palliative care on board with a possibility of reintubation. Family considering goals of care at this time and wished to await results of lumbar puncture before decision to extubate the patient. 06/25: WBC count slightly lower today. Plan family meeting with palliative team this afternoon. The patient was placed back on the ventilator yesterday after becoming tachypnea and bradycardic. CSF fluid still preliminarily negative. Neurology consulted in regards to the no change in neuro status. 06/26: No change in neurological status. Neurology consult to yesterday discuss with family results of assessment. Family met with palliative care and decided to initiate comfort care measures on 06/27/16. 06/27: Patient was noted to be actively seizing this morning. Ativan 2 mg every 15 minutes when necessary for seizure activity. Plan for comfort care measures/ withdrawal this a.m.. 06/28 Comfort care measures were instituted yesterday approximately 10:00 AM. The patient continues with agonal respirations O2 sat 92% on room air. Fentanyl infusion continues at 250 mcgs with supplemental medication as ordered. Hospice consult initiated today. The patient will be transferred to the floor. Objective Vital Signs Date Time Temp Pulse Resp B/P Pulse Ox O2 Delivery O2 Flow Rate FiO2 06/28/16 07:15 98.9 61 22 94 06/27/16 11:32 21 06/27/16 04:00 150/68 Intake and Output 06/27/16 06/27/16 06/28/16 08:00 16:00 00:00 Intake Total 984 ml 175 ml Output Total 400 ml 325 ml Balance 584 ml -150 ml Result Diagram: 06/25/16 0558 06/25/16557 Imaging Last Impressions Chest X-Ray 06/25/16599 Signed Impressions: Service Date/Time: Saturday, June 25, 2016 03:43 - CONCLUSION: 1. Diminished lung volumes and worsening bibasilar densities. Avi Aleman MD Lumbar Puncture Fluoroscopy 06/23/16599 Signed Impressions: Service Date/Time: Thursday, June 23, 2016 09:58 - CONCLUSION: Uncomplicated fluoroscopically guided lumbar puncture. Tony Burks MD Upper Extremity Ultrasound 06/22/16 Signed Impressions: Service Date/Time: Wednesday, June 22, 2016 11:01 - CONCLUSION: Normal examination. Mary Thomas MD Lower Extremity Ultrasound 06/22/16 Signed Impressions: Service Date/Time: Wednesday, June 22, 2016 10:44 - CONCLUSION: Normal examination. Mary Thomas MD Liver Ultrasound 06/20/16 Signed Impressions: Service Date/Time: Monday, June 20, 2016 16:03 - CONCLUSION: 1. Hepatomegaly 2. Suspected small gallbladder polyp. 3. Right renal cyst and a minimally complex cyst seen at the left kidney. Tony Carroll MD Abdomen/Pelvis CT 06/19/16 Signed Impressions: Service Date/Time: June 17:46 - CONCLUSION: Right ovarian cyst, uterine fibroid and right lower lobe infiltrate. Shaheen Raygoza MD Brain MRI 06/18/16 Signed Impressions: Service Date/Time: Saturday, June 18, 2016 16:34 - CONCLUSION: 1. No acute findings. Examination is within normal limits for age. No recent infarct, mass or abnormal enhancement postcontrast. Esteban Jeff MD Head CT 06/17/162208 Signed Impressions: Service Date/Time: Saturday, June 18, 2016 03:48 - CONCLUSION: No acute disease. Paras Saleem Jr., MD Last Impressions Abdomen/Pelvis CT 06/19/16 Signed Impressions: Service Date/Time: June 17:46 - CONCLUSION: Right ovarian cyst, uterine fibroid and right lower lobe infiltrate. Shaheen Raygoza MD Chest X-Ray 06/18/16 Signed Impressions: Service Date/Time: Saturday, June 18, 2016 05:42 - CONCLUSION: Repositioning of the endotracheal tube. New basilar consolidations. Paras Saleem Jr., MD Brain MRI 06/18/16 Signed Impressions: Service Date/Time: Saturday, June 18, 2016 16:34 - CONCLUSION: 1. No acute findings. Examination is within normal limits for age. No recent infarct, mass or abnormal enhancement postcontrast. Esteban Jeff MD Head CT 06/17/16 4895 Signed Impressions: Service Date/Time: Saturday, June 18, 2016 03:48 - CONCLUSION: No acute disease. Paras Saleem Jr., MD Objective Remarks GENERAL: Well-nourished, well-developed patient Agonal respirations noted SKIN: Warm and dry. HEAD: Normocephalic. EYES: No scleral icterus. No injection or drainage. NECK: Supple, trachea midline. No JVD or lymphadenopathy. CARDIOVASCULAR: Regular rate and rhythm without murmurs, gallops, or rubs. RESPIRATORY: Breath sounds equal bilaterally. No accessory muscle use. GASTROINTESTINAL: Abdomen soft, non-tender, nondistended. MUSCULOSKELETAL: No cyanosis, or edema. Multiple contractures noted. Neuro: No seizure activity, tremors. Nonresponsive. A/P Assessment and Plan NEURO: AMS History of dementia Delirium -Fentanyl infusion currently at 200 -Seizure activity. Ativan 2 mg every 15 minutes when necessary - Neuro consulted- Dr. Price -EEG showed mod slowing with sharp waves which could be focus for seizures -06/[address] [id number] results RESP: Respiratory failure, now mechanically ventilated RLL infiltrate - Continue with vent support keep sat > 92% - ICU vent bundle, Bronchodilators-scheduled - Patient on mechanical ventilation restarted yesterday secondary to tachypnea -Maintain head of bed elevation 30 -Chest x-ray 06/22 improving right base consolidation or atelectasis CV: Hypertension -Monitor HR and BP keep MAP>65mmHg -On Lisinopril 40mg daily GI: -Elevated LFT's. - tube feeds with Jevity 1.5 lina at goal of 60 cc/hr discontinued 06/27 - Last BM 06/21/16 -CT abdomen/pelvis: Right ovarian cyst, uterine fibroid and right lower lobe infiltrate. Normal liver : Hypophosphatemia-resolved -Hep-Lock IV HEME: Chronic Anemia, stable ID: Sepsis Funguria RLL infiltrate-resolved Persistent Leukocytosis - 06/17 BC: Pleomorphic GP rods / bottles- Likely contaminant - 06/17 UCx growing yeast, pneumococcal legionella negative -Continue with abx per ID (On vancomycin (06/18 -), cefepime (06/18 -), azithromycin (06/17 -), Diflucan (06/18 -) -WBC 20 -06/23-LP performed, CSF cultures preliminarily negative ENDO: - TSH 0.221 PROPH: DVT PPX: TEDs, GI PPX: Level 2 Dispo: Comfort care measures/withdrawal instituted 06/27/2016. Hospice consult. Patient to be transferred to a medical floor. Physician Monica Maxwell MD Jun 28, 2016 13:07
[2016-06-28] MEDS: FUROSEMIDE 20 MG/2 ML VIAL IV PRN ×2 (14:40→16:11)
--- NOTE | 2016-06-28 16:12 | HHI.DS ---
Discharge Summary Admission Date Jun 17, 2016 at 23:45 Admitting Diagnosis Pneumonia, sepsis Brief History 70-year-old unfortunate female longterm resident due to lack of capacity to live independently due to progressively worsening dementia. Patient was progressively getting more lethargic within last few days. She was also noted to be febrile. Per daughter patient baseline is between" sometimes she talks but doesn't make any sense" but sometimes just mumbles. She has also had some decreased by mouth intake. Today she was found more lethargic almost unresponsive and was transferred to emergency department. In the ED she was found not to be able to protect her airways and was intubated by ER attending. CBC/BMP: 06/25/16 0558 06/25/16 0558 Hospital Course 06/18: 70-year-old unfortunate female longterm resident due to lack of capacity to live independently due to progressively worsening dementia. Patient was progressively getting more lethargic within last few days. She was also noted to be febrile. Per daughter patient baseline is between" sometimes she talks but doesn't make any sense" but sometimes just mumbles. She has also had some decreased by mouth intake. She was found more lethargic almost unresponsive and was transferred to emergency department. In the ED she was found not to be able to protect her airways and was intubated by ER attending. She was admitted to the ICU. 06/19: Patient remains sedated and mechanically ventilated. RASS score of -2. No acute events overnight. Tmax overnight of 100.2F. Review of records from [facility] admission on 05/06/16 patient was admitted due to fevers, rigors, dysuria however urine culture was negative. Blood cultures obtained during that admission were found to be intermittently positive however organisms were all different including staph epi and staph hominis and thought to be contaminants. CXR and head CT were negative. Flu A/B ags were negative. It was noted that the patient had been taking Zyprexa and that medication has been discontinued due to possible neuroleptic-related fever. Patient had also been taking Haldol prn as well as Effexor. Echocardiogram was negative no vegetations. 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 Pt also had elevated LFTs during that admission which trended down and biliary scan was negative. 06/20 Patient is intubated and sedated with Diprivan. Afebrile for LP today. 06/21 Tmax 99.6. Leukocytosis resolving. Liver enzymes are decreasing. The patient remains intubated and CPAP trials thus far unsuccessful. 06/22 Tmax 99.3. No change in neuro status. Patient was maintained on CPAP for approximately 12 hours yesterday. The patient white blood cell count has noted elevation today, will obtain venous Doppler ultrasound bilateral extremities to rule out thrombus. The patient continues on antibiotics per ID recommendations. 06/23: Leukocytosis worsening. Patient went to IR for lumbar puncture this a.m.. Patient is tolerated CPAP trials for greater than 24 hours plans to obtain a RSBI score and possible extubation this afternoon. 06/24: Afebrile .The patient has continued on CPAP greater than 48 hours. WBC count trending upward. Decision not to remove endotracheal tube, yesterday decided by and family with palliative care on board with a possibility of reintubation. Family considering goals of care at this time and wished to await results of lumbar puncture before decision to extubate the patient. 06/25: WBC count slightly lower today. Plan family meeting with palliative team this afternoon. The patient was placed back on the ventilator yesterday after becoming tachypnea and bradycardic. CSF fluid still preliminarily negative. Neurology consulted in regards to the no change in neuro status. 06/26: No change in neurological status. Neurology consult to yesterday discuss with family results of assessment. Family met with palliative care and decided to initiate comfort care measures on 06/27/16. 06/27: Patient was noted to be actively seizing this morning. Ativan 2 mg every 15 minutes when necessary for seizure activity. Plan for comfort care measures/ withdrawal this a.m.. 06/28 Comfort care measures were instituted yesterday approximately 10:00 AM. The patient continues with agonal respirations O2 sat 92% on room air. Fentanyl infusion continues at 250 mcgs with supplemental medication as ordered. Hospice consult initiated today. The patient will be transferred to the floor. Pt Condition on Discharge: Deteriorating Discharge Disposition: Hospice/Med Facility Discharge Instructions DIET: Follow Instructions for: Nothing By Mouth Activities you can perform: Continue Bedrest Monica Evangelista MD Jun 28, 2016 16:12
[2016-06-28] MEDS ORDERED: GLYCOPYRROLATE 0.2 MG/ML VIAL IV PUSH PRN (16:15)
[2016-06-28] MEDS: ARTIFICIAL TEARS OPTH SOLN 15 ML BTL EACH EYE SCH (18:00)
== END 2016-06-28 18:50 | disposition hospice, inpatient (51) | DRG 870 ==
LOC: NEPC 21:57 → NEDA 23:45 → HIME 06-18 04:00
PROVIDERS: ADMIT Internal Medicine Critical Care Medicine; ATTEND Internal Medicine Critical Care Medicine
PROC: 5A1955Z Respiratory Ventilation, Greater than 96 Consecutive Hours (ICD-10-PCS; principal; 2016-06-17)
PROC: 0BH17EZ Insertion of Endotracheal Airway into Trachea, Via Natural or Artificial Opening (ICD-10-PCS; 2016-06-17)
PROC: 009U3ZX Drainage of Spinal Canal, Percutaneous Approach, Diagnostic (ICD-10-PCS; 2016-06-23)
DX: A41.9 Sepsis, unspecified organism (principal); J69.0 Pneumonitis due to inhalation of food and vomit; J96.00 Acute respiratory failure, unspecified whether with hypoxia or hypercapnia; G93.41 Metabolic encephalopathy; N39.0 Urinary tract infection, site not specified; J98.11 Atelectasis; G30.9 Alzheimer's disease, unspecified; D64.9 Anemia, unspecified; I10 Essential (primary) hypertension; I25.10 Atherosclerotic heart disease of native coronary artery without angina pectoris; F02.80 Dementia in other diseases classified elsewhere, unspecified severity, without behavioral disturbance, psychotic disturbance, mood disturbance, and anxiety; G40.909 Epilepsy, unspecified, not intractable, without status epilepticus; D17.4 Benign lipomatous neoplasm of intrathoracic organs; N83.201 Unspecified ovarian cyst, right side; D25.9 Leiomyoma of uterus, unspecified; J98.09 Other diseases of bronchus, not elsewhere classified; E83.39 Other disorders of phosphorus metabolism; R19.7 Diarrhea, unspecified; R74.8 Abnormal levels of other serum enzymes; Z51.5 Encounter for palliative care; Z66 Do not resuscitate; Z86.73 Personal history of transient ischemic attack (TIA), and cerebral infarction without residual deficits
CPT/HCPCS: 31500; 36600; 51702; 62270; 70450; 70553; 71010; 74177; 76705; 76937; 77003; 80048; 80053; 80074; 80202; 81001; 82140; 82550; 82552; 82805; 82945; 82948; 83605; 83690; 83735; 84100; 84157; 84439; 84443; 84480; 84484; 85007; 85025; 85027; 85610; 85730; 86038; 86403; 86780; 87015; 87040; 87070; 87077; 87086; 87102; 87106; 87116; 87186; 87205; 87206; 87449; 87529; 88112; 89051; 93005; 93970; 94002; 94003; 94150; 94640; 94664; 95819; 96374; 96375; A9579; J0330; J0456; J0692; J1170; J1450; J1650; J1940; J1953; J2060; J2250; J2270; J2543; J2920; J3010; J3370; J7030; J7040; J7050; J7613; Q9963; Q9967